=== PATIENT | male | born 1960 | race Caucasian/White ===

== ENCOUNTER 2020-01-08 11:35 | Outpatient (CLI) | payer OTHER, SELFPAY ==
--- NOTE | ~2020-01-08 | XR_ITS ---
EXAMINATION: XR hand LT min 3V EXAM DATE: 01/08/2020 12:20 INDICATION: No known recent injury provided at this time. Pain of the left hand. TECHNIQUE: Left hand frontal, lateral and oblique projections obtained and reviewed. There is no segundo or study for comparison. FINDINGS: Left metacarpal bones are unremarkable. The joint spaces are uniform. There is mild 1st c arpometacarpal primary osteoarthritis. There are no bony erosions identified. There are no acute fra ctures or dislocations identified. There is no subcutaneous gas. The soft tissue is unremarkable. There are no radiopaque foreign bodies. IMPRESSION: Mild left 1st carpometacarpal joint osteoarthritis. Reviewed, dictated and finalized at location B.
--- NOTE | ~2020-01-08 | XR_ITS ---
EXAMINATION: XR knee RT min 4V EXAM DATE: 01/08/2020 12:20 INDICATION: No known recent injury provided at this time. Pain of the right knee. TECHNIQUE: Right knee lateral, frontal AP, frontal PA tunnel, sunrise projections. There is no prior study for comparison. FINDINGS: No evidence osteochondral defect or joint body in the right knee joint. Small femoral di aphyseal sclerotic focus, appearance is consistent with benign enchondroma. Small amount of knee join t fluid. Joint spaces are maintained, no bony productive changes. IMPRESSION: 1. Small right knee joint effusion. 2. Incidental distal femoral diaphyseal enchondroma. Reviewed, dictated and finalized at location B.
--- NOTE | ~2020-01-08 | XR_ITS ---
EXAMINATION: XR hand RT min 3V EXAM DATE: 01/08/2020 12:20 INDICATION: No known recent injury provided at this time. Pain of the hands bilaterally. TECHNIQUE: Right hand frontal, lateral and oblique projections obtained and reviewed. There is no pr ior study for comparison. FINDINGS: Right metacarpal bones are unremarkable. There are no bony erosions identified. The joint spaces are uniform. There are no acute fractures or dislocations identified. There is no subcutaneo us gas. The soft tissue is unremarkable. There are no radiopaque foreign bodies. IMPRESSION: 1. Unremarkable right hand exam. Reviewed, dictated and finalized at location B.
--- NOTE | ~2020-01-08 | XR_ITS ---
EXAMINATION: XR knee LT min 4V EXAM DATE: 01/08/2020 12:20 INDICATION: No known recent injury provided at this time. Pain of the left knee. TECHNIQUE: Left knee lateral, frontal AP, frontal PA tunnel, sunrise projections. There is no prior study for comparison. FINDINGS: No evidence osteochondral defect or joint body in the left knee joint. Trace left knee j oint fluid. Joint spaces are maintained. There are no acute fractures or dislocations identified. Th ere is no subcutaneous gas. The soft tissue is unremarkable. There are no radiopaque foreign regina s. IMPRESSION: 1. Unremarkable left knee exam. Reviewed, dictated and finalized at location B.
== END 2020-01-08 11:36 | disposition home or self-care (01) ==
DX: M79.641 Pain in right hand (principal); M79.642 Pain in left hand; M25.461 Effusion, right knee; D16.21 Benign neoplasm of long bones of right lower limb; M19.042 Primary osteoarthritis, left hand
CPT/HCPCS: 73130; 73564

== ENCOUNTER 2020-09-29 08:01 | Emergency (ER) | payer OTHER, SELFPAY ==
[2020-09-29 08:08] VITALS: BP 137/72; PULSE 81; RESP 16; TEMP 36.6; O2SAT 100
--- NOTE | 2020-09-29 08:18 | ED.LOWEXIN ---
HPI - Extremity Injury (Lower) General Chief Complaint: Extremity Injury, Lower Stated Complaint: L FOOT PAIN Time Seen by Provider: 09/29/20 08:10 Source: patient and RN notes reviewed History of Present Illness HPI Narrative: Patient is a 60-year-old male who presents the urgent care with complaints of redness and swelling above the fourth and fifth digits of the left foot. Patient states it started on Sunday and seems to have gotten worse overnight. Patient states that it is very painful to walk. States that he did walk approximately 6 miles just a couple days ago and assumed he had a gout flare . Patient states that he has been taking his colchicine without any improvement. States that the fourth digit is now turning purple . Patient denies of fever, chills, nausea, vomiting. Denies of any history of cellulitis. No other acute complaints. No acute distress noted. Patient aware of the plan of care. Some parts of this dictation were generated by voice recognition software and may contain typographical and/or grammatical inaccuracies. Related Data Home Medications Medication Instructions Recorded Confirmed allopurinol 09/29/20 colchicine [Mitigare] mg 09/29/20 Allergies Allergy/AdvReac Type Severity Reaction Status Date / Time No Known Allergies Allergy Unverified 05/24/17 19:22 Review of Systems Review of Systems: Narrative: CONSTITUTIONAL: Denies fever, chills, or sweats. EYES: Denies visual changes, redness, or discharge. ENT: Denies rhinorrhea, congestion, sore throat, or otalgia. CARDIOVASCULAR: Denies chest pain, palpitations, or edema. RESPIRATORY: Denies cough or dyspnea. GASTROINTESTINAL: Denies abdominal pain, nausea, vomiting, or diarrhea. GENITOURINARY: Denies dysuria or hematuria. SKIN: Denies rash or itching. MUSCULOSKELETAL: Reports of redness and swelling around the fourth and fifth digits NEUROLOGIC: Denies headache, numbness, or weakness. All other systems reviewed are negative, except as documented in HPI. PMFSH Comments At the time of my signature, I reviewed and agree with the nursing past medical, surgical, social, and family history. There is no relevant family history pertinent to the patient complaint. Exam Narrative: Exam Narrative: GENERAL: This is a well-nourished, well-developed patient, in no apparent distress. HEAD: normocephalic, atraumatic. EYES: PERRL. Sclera clear/white. Vision is grossly intact. EARS: External ears normal NOSE: External nose normal with no obvious nasal discharge, nares without redness, no rhinorrhea. THROAT: Mucous membranes moist NECK: Neck supple SKIN: See extremities. Open 0.25 cm blister between the fourth and fifth digits of the left foot NEURO: awake, alert, and oriented to person, place and time. There were no obvious focal neurologic abnormalities. EXTREMITIES: 1+ pitting edema to the left foot with 5 cm x 6 cm area of erythema/ecchymosis above the fourth and fifth digits with approximately 1 cm linear streaking to the left foot. Range of motion to left lower extremity within normal limits. Positive strong left pedal pulse with capillary refill less than 2 seconds. Course Vital Signs Vital signs: Vital Signs Temperature 97.9 F 09/29/20 08:08 Pulse Rate 81 09/29/20 08:08 Respiratory Rate 16 09/29/20 08:08 Blood Pressure 137/72 09/29/20 08:08 Pulse Oximetry 100 09/29/20 08:08 Temperature 97.9 F 09/29/20 08:08 Pulse Rate 81 09/29/20 08:08 Respiratory Rate 16 09/29/20 08:08 Blood Pressure 137/72 09/29/20 08:08 Pulse Oximetry 100 09/29/20 08:08 Reviewed MDM - Extremity Injury (Lower) MDM Narrative Medical decision making narrative: Advised the patient to complete oral antibiotic regimen as prescribed. Be sure to keep the wound between the fourth and fifth digit very clean and free of debris. Keep the socks and shoes off as much as possible to allow for healing. May use a 2 x 2/4 x 4 piece of gauze debi
== END 2020-09-29 08:34 | disposition home or self-care (01) ==
PROVIDERS: Emergency Provider Nurse Practitioner Family
DX: L03.032 Cellulitis of left toe (principal); M10.9 Gout, unspecified
CPT/HCPCS: 99213; G0463

== ENCOUNTER 2021-05-05 10:12 | Emergency (ER) | payer OTHER, SELFPAY ==
[2021-05-05 10:19] VITALS: BP 147/73; PULSE 72; RESP 12; TEMP 36.6; O2SAT 100
--- NOTE | 2021-05-05 10:26 | ED.SKABFB ---
HPI - Skin/Abscess/Foreign Bdy General Chief complaint: Skin/Abscess/Foreign Body Stated complaint: lt foot pain Time Seen by Provider: 05/05/21 10:27 Source: patient, RN notes reviewed and old records reviewed Mode of arrival: ambulatory Limitations: no limitations History of Present Illness HPI narrative: 61-year-old male presents to the [facility] with complaints of discomfort, redness between toes 4 and 5 left side. Redness between toes and to the plantar aspect. Peeling skin some induration noted. Had the same issue with cellulitic changes and streaking last September. Has a history of gout, denies any other past medical or surgical history Using foot fungus cream Related Data Home Medications Medication Instructions Recorded Confirmed allopurinol 09/29/20 Allergies Allergy/AdvReac Type Severity Reaction Status Date / Time No Known Allergies Allergy Unverified 05/24/17 19:22 Review of Systems Review of Systems: All systems reviewed & are unremarkable except as noted in HPI and below Constitutional: Constitutional: Reports no additional constitutional complaints Eyes: Eyes: Reports no additional eye complaints ENT: Reports system reviewed and no additional complaints, except as documented Cardiovascular: Cardiovascular: Reports no additional cardiovascular complaints Respiratory: Respiratory: Reports no additional respiratory complaints Musculoskeletal: Musculoskeletal: Reports no additional musculoskeletal complaints Integumentary/Breasts: Skin/Breast: Reports as per HPI and Reports erythema (Between toes 4 and 5 left foot, plantar aspect) Neurologic: Reports system reviewed and no additional complaints, except as documented Psychiatric: Psychiatric: Reports no additional psychiatric complaints Allergic/Immunologic: Allergic/Immunologic: Reports no additional allergic/immunologic complaints PMFSH Past Medical History Medical History (Updated 05/05/21 @ 15:23 by Stephanie Bella) Gout Surgical History Surgical History (Updated 05/05/21 @ 15:24 by Stephanie Bella) No significant past surgical history Social History Social History (Updated 05/05/21 @ 15:24 by Stephanie Bella) Gender identity (if verbalized by the patient): Male Comments At the time of my signature, I reviewed and agree with the nursing past medical, surgical, social, and family history. There is no relevant family history pertinent to the patient complaint. Exam Const: General: healthy appearing, no acute distress and alert Nutritional Appearance: well nourished Orientation/consciousness: patient oriented x3 Limitations: no limitations HENMT: Head: normal to inspection Eyes: Pupils: Equal, round and reactive pupils present Neck: Neck: normal visual inspection, no lymphadenopathy and no meningeal signs Chest: Chest palpation & inspection: normal inspection of the chest Resp: Effort & Inspection: normal respiratory effort Cardio: Rate: regular rate Skin: Other: Redness and peeling of skin between toes 4 and 5 left foot with redness extending to the ball, plantar aspect in the same area. No streaking. Neuro: General: patient oriented x3, moves all extremities, no meningeal signs and no focal motor deficits Speech: normal speech Gait exam (Neuro): Normal gait present Extrem: General: normal to inspection Psych: Appearance: grossly normal and well kempt Mental Status: mental status grossly normal Affect: normal affect Attitude: cooperative Thought content: Yes Normal thought content present Course Course Emergency Course: Discharge instructions reviewed with patient, as well as provided in writing per nursing staff. The instructions also include specific and strict return/GO TO THE ER as well as f/u information. All questions have been answered, and the patient deny any further questions with discharge and discharge plan. Vital Signs Vital signs: Vital Signs Temperature 97.8 F 05/05/21 10:19 Pu
== END 2021-05-05 10:41 | disposition home or self-care (01) ==
PROVIDERS: Emergency Provider Nurse Practitioner
DX: B35.3 Tinea pedis (principal); L03.116 Cellulitis of left lower limb; M10.9 Gout, unspecified
CPT/HCPCS: 99213; G0463

== ENCOUNTER 2021-08-21 12:16 | Observation (INO) | payer OTHER, SELFPAY ==
[2021-08-21] VITALS (11 sets, daily range): BP systolic 129–154; BP diastolic 72–86; PULSE 74–98; RESP 16–18; TEMP 36.2–37; O2SAT 100; BMI 25.0
--- NOTE | ~2021-08-21 | XR_ITS ---
EXAMINATION: XR foot RT min 3V EXAM DATE: 08/21/2021 15:20 INDICATION: Right Foot Pain, Red/ Swelling To 5th Metatarsal, Blister . TECHNIQUE: Right foot dorsoplantar, lateral and oblique projections obtained and reviewed. There is no prior study for comparison. FINDINGS: There is mild right 1st metatarsophalangeal joint primary osteoarthritis. There are no acut e fractures or dislocations identified. There is no subcutaneous gas. The soft tissue is unremarkab le. There are no radiopaque foreign bodies. IMPRESSION: Mild right 1st MTP osteoarthritis. Reviewed, dictated and finalized at location G. 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
--- NOTE | 2021-08-21 14:32 | PC.NURSE ---
patient states he went to urgent care on sunday, was given an oral abx for dx of cellulitis. states he has been taking meds as prescribed. woke up with morning and noted a blister on 5th digit. denies pain at this time. symptoms started on sunday
--- NOTE | 2021-08-21 14:54 | ED.GENADULT ---
HPI - General Adult General Chief complaint: Skin/Abscess/Foreign Body Stated complaint: R FOOT CELLULITIS Time Seen by Provider: 08/21/21 14:20 Source: patient and RN notes reviewed History of Present Illness HPI narrative: Patient is a 61 y/o male complaining of right foot pain starting about 4 days ago. He describes his pain as gout pain. He rates his pain as 10/10. Pain is worsen at night. He has some redness. He has no fever, chill. He was seen at urgent care 2 days ago and started on Keflex. However, his symptoms have not improved. Related Data Home Medications Medication Instructions Recorded Confirmed allopurinol 100 mg PO DAILY 09/29/20 08/21/21 Allergies Allergy/AdvReac Type Severity Reaction Status Date / Time No Known Allergies Allergy Unverified 08/21/21 14:34 Review of Systems Constitutional: Constitutional: Denies chills, Denies fever(s), Denies headache(s) and Denies weakness Eyes: Eyes: Denies blurry vision ENT: Denies headache(s) and Denies neck pain Cardiovascular: Cardiovascular: Denies chest pain and Denies dyspnea Respiratory: Respiratory: Denies cough and Denies dyspnea Gastrointestinal: Gastrointestinal: Denies abdominal pain, Denies diarrhea, Denies nausea and Denies vomiting Genitourinary: Genitourinary: Denies hematuria and Denies dysuria Musculoskeletal: Musculoskeletal: Reports as per HPI, Denies back pain, Denies neck pain and Reports other (right foot pain) Integumentary/Breasts: Skin/Breast: Reports erythema (right foot) Neurologic: Denies headache(s) and Denies weakness [facility] Past Medical History Medical History (Updated 08/22/21 @ 17:34 by Angie Cruz MD) Gout Tetralogy of Fallot Surgical History Surgical History (Updated 08/21/21 @ 23:02 by Sherri Irene PA-C) History of open heart surgery Noa-Taussig shunt and subsequent Tetralogy of Fallot repair. History of spinal surgery Family History Family History (Updated 08/21/21 @ 23:02 by Sherri Irene PA-C) Other No pertinent family history Social History Social History (Updated 08/21/21 @ 23:03 by Sherri Irene PA-C) Social History: Surrogate decision maker: Cindy Mendoza, . Code status: Full code. 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 Exam Const: General: no acute distress and well developed Orientation/consciousness: oriented to person, oriented to place, oriented to time and patient oriented x3 HENMT: Head: normocephalic Ears: external ears normal General nose exam: Normal external nose present Eyes: General: appearance normal, both eyes and all related structures Conjunctivae: conjunctivae normal Neck: Neck: normal visual inspection and full ROM Chest: Chest palpation & inspection: normal inspection of the chest and no tenderness Resp: Effort & Inspection: normal respiratory effort Auscultation: clear to auscultation bilaterally Cardio: Rate: regular rate Rhythm: regular rhythm GI: GI Palp: No abdominal tenderness and Yes Soft to palpation Skin: General skin exam: normal color, turgor normal and erythema (right foot pain) Neuro: General: oriented to person, oriented to place, oriented to time and patient oriented x3 Cognition (Neuro): normal cognition Extrem: General: normal to inspection, full ROM and no pedal edema Psych: Appearance: grossly normal Mental Status: mental status grossly normal Affect: normal affect Course Consultations Consultation #1: Discussed with JOSE Polanco, who agrees to admit. Date: 08/21/21 Time: 15:57 Vital Signs Vital signs: Vital Signs Pulse Rate 98 08/21/21 12:19 Respiratory Rate 18 0
[2021-08-21 15:09] LABS: Basophils Percent Auto 0.5 % (0.2-1.2); Eosinophils Absolute Auto 0.1 K/mm3 (0-0.3); Eosinophils Percent Auto 2.5 % (0-4.4); Hematocrit 38.6 % (42.0-52.0); Hemoglobin 13.3 g/dL (14.0-18.0); Lymphocytes Absolute Auto 1.38 K/mm3 (0.9-3.2); Lymphocytes Percent Auto 31.1 % (18.3-44.2); Mean Corpuscular HGB Conc 34.5 g/dl (32-36); Mean Corpuscular Hemoglobin 33.3 pg (26-34); Mean Corpuscular Volume 96.5 fl (80-100); Mean Platelet Volume 9.6 fl (7.4-10.4); Monocytes Absolute Auto 0.4 K/mm3 (0.1-0.6); Monocytes Percent Auto 8.8 % (2.6-8.5); Neutrophils Absolute Auto 2.5 K/mm3 (1.3-6.7); Neutrophils Percent Auto 57.1 % (45.5-73.1); Platelet Count Result 154 k/mm3 (150-375); White Blood Count 4.4 K/mm3 (4.5-10.0)
[2021-08-21 15:31] LABS: Anion Gap 8 mmol/L (8-16); Blood Urea Nitrogen 15 mg/dL (9-20); Calcium 9.3 mg/dL (8.4-10.2); Carbon Dioxide 23 mmol/L (22-30); Chloride 104 mmol/L (98-107); Estimated CRCL calculation 82 ml/min; Estimated Glomerular Filt Rate > 60; Glucose 103 mg/dL (65-110); Potassium 3.8 mmol/L (3.4-5.0); Sodium 135 mmol/L (137-145); Uric Acid 5.9 mg/dL (3.5-8.5)
[2021-08-21 16:30] LABS: CRP 1.3 mg/dL (<1.0)
--- NOTE | 2021-08-21 17:00 | PM.IMHP ---
H&P: HPI History of Present Illness Date/Time: 08/21/21 17:00 <Sherri Irene PA-C - Last Filed: 08/21/21 23:10> Chief Complaint: Right foot pain and redness. <Sherri Irene PA-C - Last Filed: 08/21/21 23:10> Narrative: This is a very pleasant 61-year-old male with history of gout and cellulitis who presented to the emergency department for evaluation of right foot pain and redness. Approximately 4 days ago he developed pain similar to that he has experienced with gout on the right lateral forefoot near the 4th and 5th metatarsophalangeal joints. He started taking colchicine however that has not helped and he goes on to say that the pain has not been constant, which is different than that he would typically experience with gout flares. He then became worried that perhaps he was once again developing cellulitis and he was seen at a local urgent care on Sunday. Indeed he was diagnosed with cellulitis and was given a prescription for cephalexin. Despite compliance with the antibiotic, the erythema has now started to streak up the forefoot and he has noticed an elevated area that looks like a blister. He is an avid walker, walks for exercise, and he has gotten new shoes relatively recently however he has no pain or areas of friction with though shoes. He is certain that the blister-like area noted on today's exam is not due to this use. He has not had any bites or cuts in the area though he goes on to say that he has dry skin which will occasionally crack. He denies fever, chills, sweats, nausea, and vomiting. No history of MRSA. <Sherri Irene PA-C - Last Filed: 08/21/21 23:10> Review of Systems Review of Systems: Twelve systems were reviewed and are negative except for as per HPI. <Sherri Irene PA-C - Last Filed: 08/21/21 23:10> [facility] Past Medical History Medical History: Medical History (Updated 08/22/21 @ 17:34 by Angie Cruz MD) Gout Tetralogy of Fallot <Sherri Irene PA-C - Last Filed: 08/21/21 23:10> Surgical History Surgical History: Surgical History (Updated 08/21/21 @ 23:02 by Sherri Irene PA-C) History of open heart surgery Noa-Taussig shunt and subsequent Tetralogy of Fallot repair. History of spinal surgery <Sherri Irene PA-C - Last Filed: 08/21/21 23:10> Family History Family History: Family History (Updated 08/21/21 @ 23:02 by Sherri Irene PA-C) Other No pertinent family history <Sherri Irene PA-C - Last Filed: 08/21/21 23:10> Social History Social History: Social History (Updated 08/21/21 @ 23:03 by Sherri Irene PA-C) Social History: Surrogate decision maker: Cindy Mendoza, . Code status: Full code. 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 <Sherri Irene PA-C - Last Filed: 08/21/21 23:10> Meds Home Medications and Allergies Home medications: Home Medications Medication Instructions Recorded Confirmed Type allopurinol 100 mg PO DAILY 09/29/20 08/21/21 History <Sherri Irene PA-C - Last Filed: 08/21/21 23:10> Allergies/Adverse reactions: Allergies Allergy/AdvReac Type Severity Reaction Status Date / Time No Known Allergies Allergy Unverified 08/21/21 14:34 <Sherri Irene PA-C - Last Filed: 08/21/21 23:10> Vital Signs Vital Signs - 24 hr 08/21/21 12:19 08/21/21 17:25 08/21/21 17:26 Temperature Pulse Rate 98 Respiratory Rate 18 Blood Pressure 137/77 143/72 H Pulse Oximetry 100 100 100 08/21/21 17:31 08/21/21 17:32 08/21/21 17:46 Temperature Pulse Rate Respiratory Rate Blood Pressure 149/72
[2021-08-21] MEDS: LIDOCAINE HCL 1% LOCAL INJ 20 ML VIAL (17:04)
--- NOTE | 2021-08-21 18:26 | ADMGEN ---
This patient, Ramon Mendoza, was admitted to Medical Room 341-01. Patient/family oriented to hospital policies and general routines including ID bracelet, bed and alarms, visiting hours, pain management, procedures, bathroom and other care routines, personal items, smoking policy, room service/diet, and visiting hours. Information on how to activate the Rapid Response Team has been discussed. Patient/Family are encouraged to report perceived risks to care and to ask questions if they do not understand what they are told or what they should do.
[2021-08-22 06:00] VITALS: BP 105/57; PULSE 65; RESP 16; TEMP 37.1; O2SAT 100
[2021-08-22 06:37] LABS: Estimated CRCL calculation 74 ml/min; Estimated Glomerular Filt Rate > 60
[2021-08-22] MEDS: allopurinoL 100 MG TABLET PO (08:22)
--- NOTE | 2021-08-22 08:34 | PM.IMPN ---
Progress Note: A&P Assessment and Plan (1) Cellulitis of right foot: Code(s): L03.115 - Cellulitis of right lower limb Status: Acute Assessment and Plan: Purulent cellulitis S/p incision and drainage Wound culture has been obtained and is pending Continue with cefazolin and vancomycin, pending culture (2) Gout: Code(s): M10.9 - Gout, unspecified Status: Acute Assessment and Plan: No acute issues Uric acid level within normal limits Continue allopurinol Time Spent With Patient Time: Code status: FULL DVT Ppx: Lovenox Subjective Date/time seen: 08/22/21 08:34 Interval history: Pt seen and evaluated; labs, vs, diagnostic results reviewed; pain controlled; overall pt feels better than yesterday; swelling improved Review of Systems Review of Systems: All systems reviewed & are unremarkable except as noted in HPI and below Exam Narrative: General: NAD HEENT: EOMI. Sclerae anicteric. Oral mucosa moist. Oropharynx clear. Neck: Supple. Respiratory: Lungs are clear to auscultation bilaterally. Cardiovascular: Regular rate and rhythm with S1-S2. Gastrointestinal: Abdomen is soft, nontender, and nondistended with positive bowel sounds. Skin: Warm and dry. There is mild edema and erythema on the dorsum of the right lateral foot near the 4th and 5th metatarsophalangeal joints. There is a small raised area of fluctuance near the 4th and 5th interdigital webspace There is a small Extremities: No cyanosis, clubbing, or significant edema. Radial and pedal pulses intact. Neurological: Alert. No gross focal deficits. Psychiatric: Pleasant and cooperative with normal mood and affect. Judgment and insight intact. Objective Data Vital Signs Vital Signs: Vital Signs - 24 hr 08/21/21 12:19 08/21/21 17:25 08/21/21 17:26 Temperature Pulse Rate 98 Respiratory Rate 18 Blood Pressure 137/77 143/72 H Pulse Oximetry 100 100 100 08/21/21 17:31 08/21/21 17:32 08/21/21 17:46 Temperature Pulse Rate Respiratory Rate Blood Pressure 149/72 H 147/86 H Pulse Oximetry 100 100 100 08/21/21 17:47 08/21/21 18:00 08/21/21 18:01 Temperature Pulse Rate Respiratory Rate Blood Pressure 145/86 H Pulse Oximetry 100 100 100 08/21/21 18:27 08/21/21 22:00 08/22/21 06:00 Temperature 36.2 C L 37.0 C 37.1 C Pulse Rate 74 75 65 Respiratory Rate 16 16 16 Blood Pressure 154/75 H 129/74 105/57 L Pulse Oximetry 100 100 100 Intake/Output Intake/Output: Intake & Output 08/19/21 08/20/21 08/21/21 08/22/21 23:59 23:59 23:59 23:59 Intake Total 250 650 Balance 250 650 Meds/Results Medications: Active Medications Generic Name Dose Route Start Last Admin Trade Name Freq PRN Reason Stop Dose Admin Acetaminophen 650 mg 08/21/21 23:10 Acetaminophen 325 Mg Tablet PO Q6H PRN Mild Pain (1-3) or Fever Allopurinol 100 mg 08/22/21 08:00 08/22/21 08:22 Allopurinol 100 Mg Tablet PO 100 mg DAILY@0800 MARK Administration Cefazolin Sodium 1 gm in 50 mls @ 100 mls/hr 08/22/21 06:00 08/22/21 06:05 Ancef 1 Gm/D5w 50 Ml Pm IVPB Infused Q8H MARK Infusion Vancomycin HCl 1,250 mg in 250 mls @ 200 mls/hr 08/22/21 01:00 08/22/21 02:55 Vancomycin 1,250 Mg/D5w 250 Ml IVPB Infused Q12H MARK Infusion Radiology Results: ITS Impressions Foot X-Ray 08/21/21 15:25 IMPRESSION: Mild right 1st MTP osteoarthritis. Labs Labs: Laboratory Results - last 24 hr 08/21/21 08/21/21 08/21/21 15:02 15:02 15:02 WBC 4.4 L RBC 4.00 L Hgb 13.3 L Hct 38.6 L MCV 96.5 MCH 33.3 MCHC 34.5 RDW 12.0 Plt Count 154 MPV 9.6 Immature Gran % (Auto) 0.0 Neut % (Auto) 57.1 Lymph % (Auto) 31.1 R[place]y % (Auto) 8.8 H Eos % (Auto) 2.5 Baso % (Auto) 0.5 Lymph # (Auto) 1.38 [place] # (Auto) 0.4 Eos # (Auto) 0.1 Baso # (Auto) 0.0 Abs Immat Gran (auto) 0.00 Absolut
[2021-08-22 09:24] VITALS: O2SAT 97
[2021-08-22] MEDS: ENOXAPARIN 40 MG/0.4 ML SYRINGE SUB-Q (12:23)
[2021-08-22 14:07] VITALS: BP 121/59; PULSE 71; RESP 20; TEMP 36.2; O2SAT 100
[2021-08-22 21:31] VITALS: BP 117/63; PULSE 69; RESP 16; TEMP 35.8; O2SAT 100
[2021-08-23 05:01] VITALS: BP 117/64; PULSE 71; RESP 18; TEMP 36.8; O2SAT 100
[2021-08-23 07:29] LABS: Hematocrit 38.4 % (42.0-52.0); Hemoglobin 13.2 g/dL (14.0-18.0); Mean Corpuscular HGB Conc 34.4 g/dl (32-36); Mean Corpuscular Hemoglobin 32.8 pg (26-34); Mean Corpuscular Volume 95.5 fl (80-100); Mean Platelet Volume 9.3 fl (7.4-10.4); Platelet Count Result 161 k/mm3 (150-375); Red Blood Count 4.02 M/mm3 (4.6-6.20); Red Cell Distribution Width 11.9 % (11.5-14.5); White Blood Count 3.5 K/mm3 (4.5-10.0)
[2021-08-23 07:35] LABS: Anion Gap 6 mmol/L (8-16); Blood Urea Nitrogen 15 mg/dL (9-20); Calcium 9.3 mg/dL (8.4-10.2); Carbon Dioxide 25 mmol/L (22-30); Chloride 102 mmol/L (98-107); Estimated CRCL calculation 74 ml/min; Estimated Glomerular Filt Rate > 60; Glucose 106 mg/dL (65-110); Potassium 4.7 mmol/L (3.4-5.0); Sodium 133 mmol/L (137-145)
[2021-08-23] MEDS: allopurinoL 100 MG TABLET PO (08:02)
[2021-08-23] MEDS: ENOXAPARIN 40 MG/0.4 ML SYRINGE SUB-Q (08:20)
[2021-08-23 08:31] VITALS: BP 131/65; PULSE 68; RESP 14; TEMP 36; O2SAT 100
[2021-08-23 11:53] VITALS: BP 129/77; PULSE 71; RESP 14; TEMP 36.1; O2SAT 100
--- NOTE | 2021-08-23 13:58 | PM.DS ---
DS: Admitting Diagnosis Discharge Date 08/23/2021 Admitting Diagnosis Right foot pain and redness. DS: Discharge Diagnosis Discharge Diagnosis (1) Cellulitis of right foot: Code(s): L03.115 - Cellulitis of right lower limb Status: Acute Assessment and Plan: Purulent cellulitis S/p incision and drainage Wound culture has been obtained and is pending Continue with cefazolin and vancomycin, pending culture (2) Gout: Code(s): M10.9 - Gout, unspecified Status: Acute Assessment and Plan: No acute issues Uric acid level within normal limits Continue allopurinol DS: Summary Hospital Course Reason for hospitalization: Chief Complaint: Right foot pain and redness. <Sherri Irene PA-C - Last Filed: 08/21/21 23:10> Narrative: This is a very pleasant 61-year-old male with history of gout and cellulitis who presented to the emergency department for evaluation of right foot pain and redness. Approximately 4 days ago he developed pain similar to that he has experienced with gout on the right lateral forefoot near the 4th and 5th metatarsophalangeal joints. He started taking colchicine however that has not helped and he goes on to say that the pain has not been constant, which is different than that he would typically experience with gout flares. He then became worried that perhaps he was once again developing cellulitis and he was seen at a local urgent care on Sunday. Indeed he was diagnosed with cellulitis and was given a prescription for cephalexin. Despite compliance with the antibiotic, the erythema has now started to streak up the forefoot and he has noticed an elevated area that looks like a blister. He is an avid walker, walks for exercise, and he has gotten new shoes relatively recently however he has no pain or areas of friction with though shoes. He is certain that the blister-like area noted on today's exam is not due to this use. He has not had any bites or cuts in the area though he goes on to say that he has dry skin which will occasionally crack. He denies fever, chills, sweats, nausea, and vomiting. No history of MRSA. Hospital Course: Purulent cellulitis S/p incision and drainage Wound culture has been obtained and is pending Continue with cefazolin and vancomycin, pending culture Wound culture no growth so far patient is clinically stable will discharge the patient today. Status at Discharge Functional status at discharge: independent ambulation Overall status at discharge: patient is back to baseline Time Spent with Patient Time attestation: Total time spent providing and/or coordinating discharge services: Patient was seen and examined at the time of the discharge Condition at discharge is stable Code status: Full code. Time spent preparing discharge summary, discharge medications, discussing discharge planning with outpatient case manager and patient is 35 minutes. Time spent: Greater than 30 minutes Exam Narrative: Patient is comfortable, NAD HEENT: eyes are clear and none icteric LUNGS:Normal respiratory effort ABD: nondistended Lower extremities: no edema SKIN: nonjaundiced Neuro: grossly intact. DS: Data Data Completed and Pending Labs on day of discharge: Labs from last 24 hours 08/23/21 08/23/21 08/23/21 11:55 07:19 07:19 WBC 3.5 L RBC 4.02 L Hgb 13.2 L Hct 38.4 L MCV 95.5 MCH 32.8 MCHC 34.4 RDW 11.9 Plt Count 161 MPV 9.3 Sodium 133 L Potassium 4.7 Chloride 102 Carbon Dioxide 25 Anion Gap 6 L BUN 15 Creatinine 0.90 Estim Creat Clear Calc 74 Estimated GFR > 60 Glucose 106 Calcium 9.3 Vancomycin Trough 12.0 Preliminary micro results at discharge 08/21/21 17:03 Wound Culture - Preliminary Foot Right Discharge Plan Discharge Attending physician on discharge: Osmany Gary Consulting providers: ; Tian Luu ; Sherri Irene ; Carlos Steel
--- NOTE | 2021-08-23 14:32 | PC.NURSE ---
On 08/23/21, the student, Cheryl Orellana, provided care and completed [facility] documentation on this patient. I have reviewed the student's documentation and agree with the findings.
== END 2021-08-23 15:15 | disposition home or self-care (01) ==
LOC: ANHED 16:52 → ANH3MED 17:21
PROVIDERS: Nurse Practitioner Adult Health; Physician Assistant; Admitting Provider Family Medicine; Emergency Provider Emergency Medicine; Visit Provider Family Medicine
DX: L03.115 Cellulitis of right lower limb (principal); M10.9 Gout, unspecified; Z87.891 Personal history of nicotine dependence
CPT/HCPCS: 10060; 36415; 73630; 80048; 80202; 82565; 84550; 85025; 85027; 86140; 87070; 87081; 87205; 96365; 96366; 96367; 96372; 96376; 99285; A9270; G0378; G0379; J0690; J1650; J3370

== ENCOUNTER 2025-04-06 18:43 | Inpatient (IN) | payer MEDICARE, OTHER, SELFPAY ==
[2025-04-06] VITALS (16 sets, daily range): BP systolic 80–140; BP diastolic 55–77; PULSE 76–98; RESP 13–27; TEMP 36.9; O2SAT 97–100
--- NOTE | ~2025-04-06 | XR_ITS ---
XR bone survey comp/metastic 04/07/2025 19:54 Indication: Metastatic survey. Multiple myeloma. Procedure: 31 images of the skeleton Comparison: No prior studies for comparison. Findings: There are lytic defects in the distal aspect of the right humerus with scalloping of the cortex. There are lytic defects of the proximal aspect of the left radius. There are lytic defects distal aspect of the left humerus with scalloping of the cortex. There are multiple lytic defects of multiple ribs, clavicles and proximal aspect of the humerus bilaterally. There is severe cervical spondylosis. There is carotid atherosclerosis. There are multiple lytic defects of the skull. There are gallstones. There are multiple lytic defects of the femurs. There are lytic defects in the proximal aspect of the fibula bilaterally. There is moderate thoracic and lumbar spondylosis. Impression: 1: Innumerable lytic defects throughout the visualized osseous structures, compatible with widespread multiple myeloma. Reviewed, dictated and finalized at location O. Impression: 1: Innumerable lytic defects throughout the visualized osseous structures, comp atible with widespread multiple myeloma.
--- NOTE | ~2025-04-06 | BM_ITS ---
EXAMINATION: CCL bone marrow asp w bx diag ORDER COMPLETED DATE: 04/09/2025 13:26 INDICATION: Multiple lytic bone lesions suspicious for multiple myeloma TECHNIQUE: A time-out was performed to verify the patient's name, date of , and procedure to be performed. The procedure including the risks and benefits was discussed with the patient. Risks discussed included bleeding, infection, nerve injury and allergic reaction. The patient understood the risks and agreed to proceed. The skin overlying the right posterior iliac spine was prepped and draped in usual sterile fashion. Anesthetic was administered with 1% lidocaine subcutaneously. Moderate conscious sedation was achieved with 50 mcg fentanyl IV. An 11 gauge needle was inserted into the right ilium with fluoroscopic guidance. Bone marrow was aspirated. An 8 gauge needle was then inserted into the right ilium with fluoroscopic guidance. 2 core bone marrow biopsy specimens were obtained. The needle was removed and the entry site was cleaned and dressed. There were no immediate complications. A single fluoroscopic image was recorded. Fluoroscopy exposure time was 0.1 minutes. Total DAP was 69.5 mGycm^2. FINDINGS: Real-time fluoroscopy demonstrates the biopsy needle tip overlying the right posterior iliac spine. IMPRESSION: 1. Successful fluoroscopic guided bone marrow aspiration. 2. Successful fluoroscopic guided bone marrow biopsy. Reviewed, dictated and finalized at location A.
--- NOTE | ~2025-04-06 | XR_ITS ---
XR chest 1V portable 04/06/2025 21:09 Indication: Weakness Procedure: AP portable chest Comparison: No prior studies for comparison. Findings: Cardiomegaly with mild interstitial edema. No pleural effusion or pneumothorax. Diffuse osteopenia. Impression: 1: Cardiomegaly with mild interstitial edema. Reviewed, dictated and finalized at location O. Impression: 1: Cardiomegaly with mild interstitial edema.
--- NOTE | ~2025-04-06 | CT_ITS ---
EXAMINATION: CT brain wo con DATE: 04/06/2025 19:12 INDICATION: Slurred speech for year. TECHNIQUE: Computed tomography (CT) of the abdomen and pelvis was performed without intravenous contrast. The dose-length product was 681.00 mGy-cm. Automated exposure control and iterative reconstruction technique were employed. COMPARISON: None. FINDINGS: Brain parenchymal volume is normal for age. There are scattered mild periventricular and subcortical white matter changes, most likely related to small vessel ischemic disease (microangiopathy). There is intracranial atherosclerosis. No acute infarction, hemorrhage, mass or mass effect. Paranasal sinuses and mastoids are pneumatized. No depressed skull fractures. IMPRESSION: 1. No acute intracranial abnormality. Reviewed, dictated and finalized at location O.
--- NOTE | ~2025-04-06 | MR_ITS ---
EXAMINATION: MR brain/brain stem wo/w con DATE: 04/08/2025 13:06 INDICATION: Episode of slurred speech. Possible malignancy. TECHNIQUE: Magnetic resonance imaging (MRI) of the brain and brainstem was performed without and with 17 mL Multihance intravenous contrast. Sequences included sagittal and axial T1-weighted SE, axial diffusion-weighted FS SE, axial 3D SWAN, axial T2-weighted FLAIR, and axial T2-weighted FSE. Postcontrast axial, sagittal and coronal T1-weighted SE was obtained. Apparent diffusion coefficient (ADC) maps were created. COMPARISON: Head CT and CT angiogram dated 04/06/2025 FINDINGS: There are no areas of restricted diffusion to suggest acute infarction. There are few scattered small foci of susceptibility artifact in the bilateral cerebral hemispheres consistent with sequela of chronic microhemorrhage as can be seen with hypertension. No acute intracranial hemorrhage or abnormal i ntracranial mass lesion. There are scattered areas of nonspecific increased T2- weighted signal intensity in the cerebral white matter, predominantly involving the deep and periventricular white matter which is within normal limits for age and likely sequela of chronic small vessel ischemic disease. There are no intraparenchymal signal abnormalities seen on the other pulse sequences. The ventricles are symmetric and normal in size. There are no abnormal extra-axial fluid collections. Flow voids are seen in the cerebral arteries on the T2- weighted sequences consistent with their expected patency. Left vertebral artery is dominant. There are several small T2 hyperintense and enhancing calvarial lesions which correspond to a decrease on prior CT suspicious for multiple myeloma or metastatic disease. Visualized orbits and soft tissues are unremarkable. There are no areas of abnormal intraparenchymal enhancement on the post contrast images. IMPRESSION: 1. Normal aging brain with mild scattered periventricular predominant calcific white matter T2 hyperintensity consistent with chronic small vessel ischemic disease. No acute intracranial process or abnormally enhancing brain lesions. 2. Multiple small enhancing calvarial lesions correspond to lytic lesions on prior CT and concerning for multiple myeloma or other metastatic disease. Reviewed, dictated and finalized at location A. IMPRESSION: 1. Normal aging brain with mild scattered periventricular predominant calcific white matter T2 hyperintensity consistent with chronic small vessel ischemic di sease. No acute intracranial process or abnormally enhancing brain lesions. 2. Multiple small enhancing calvarial lesions correspond to lytic lesions on pr ior CT and concerning for multiple myeloma or other metastatic disease.
--- NOTE | ~2025-04-06 | CT_ITS ---
EXAMINATION: CTA brain carotid DATE: 04/06/2025 22:26 INDICATION: Confusion. Unsteady gait. TECHNIQUE: Computed tomographic angiography (CTA) of the head was performed with 100 mL Omnipaque-350 intravenous contrast. CTA of the neck was performed with intravenous contrast. Automated exposure control and iterative reconstruction technique were employed. The dose-length product was 1159.01 mGy-cm. Maximum intensity projection and volume rendered 3D-reconstructions were created by the technologist on a separate workstation. COMPARISON: Head CT 04/06/2025 FINDINGS: HEAD CTA: There is no intracranial hemorrhage, acute infarction, or abnormal intracranial mass lesion. There are scattered areas of low attenuation in the cerebral white matter, which is within normal limits for the patient's age. The ventricles are normal in size. The paranasal sinuses are clear. The orbits are normal. The mastoid air cells are normal. Left vertebral artery is dominant. There is no significant stenosis of basilar artery or the posterior cerebral arteries. The posterior communicating arteries are normal. There is no significant stenosis of the intracranial internal carotid arteries or anterior or middle cerebral arteries. Anterior communicating artery is normal. There is no aneurysm. NECK CTA: There are no pathologically enlarged lymph nodes. 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 There is plaque in the proximal internal carotid arteries. There is 13% stenosis of the proximal right internal carotid artery relative to normal distal artery lumen diameter (NASCET criteria). There is 0% stenosis of the proximal left internal carotid artery relative to normal distal artery lumen diameter. There is severe cervical spondylosis. There are widespread lytic lesions of the bones. IMPRESSION: 1. Normal aging brain. 2. No aneurysm or significant intracranial arterial stenosis. 3. 13% stenosis of the proximal right internal carotid artery relative to normal distal artery lumen diameter (NASCET criteria). 4. 0% stenosis of the proximal left internal carotid artery relative to normal distal artery lumen diameter. 5. Widespread lytic lesions of bone, consistent with multiple myeloma versus metastatic disease. Reviewed, dictated and finalized at location E. IMPRESSION: 1. Normal aging brain. 2. No aneurysm or significant intracranial arterial stenosis. 3. 13% stenosis of the proximal right internal carotid artery relative to shayla l distal artery lumen diameter (NASCET criteria). 4. 0% stenosis of the proximal left internal carotid artery relative to normal distal artery lumen diameter. 5. Widespread lytic lesions of bone, consistent with multiple myeloma versus me tastatic disease.
--- NOTE | ~2025-04-06 | MR_ITS ---
EXAMINATION: MR cervical spine wo con DATE: 04/08/2025 13:06 INDICATION: Weakness. Falls. TECHNIQUE: Magnetic resonance imaging (MRI) of the cervical spine was performed without intravenous contrast. COMPARISON: CTA neck 04/06/2025 FINDINGS: There is 2 mm retrolisthesis of C3 on C4. There is mild kyphosis of cervical spine. There is 3 degrees levocurvature of cervical spine. There is widespread heterogeneous signal intensity of the bone marrow. There is severely decreased disc height at C3-C4, moderately decreased disc height at C4-C5, and severely decreased disc height at C5-C6 and C6-C7. The spinal cord signal intensity is normal. The following disc levels are specifically discussed: C2-C3: The disc does not extend beyond the endplate margin. There is moderate right and mild left uncovertebral joint osteoarthritis. There is moderate bilateral facet joint osteoarthritis. There is mild right neural foraminal stenosis. There is no central canal stenosis. C3-C4: The disc is bulging. There is severe bilateral uncovertebral joint osteoarthritis. There is moderate bilateral facet joint osteoarthritis. There is severe right and moderate left neural foraminal stenosis. There is moderate central canal stenosis with ventral and dorsal indentation of the spinal cord. C4-C5: The disc is bulging. There is severe bilateral uncovertebral joint osteoarthritis. There is moderate right and severe left facet joint osteoarthritis. There is severe right and moderate left neural foraminal stenosis. There is moderate central canal stenosis with ventral and dorsal indentation of the spinal cord. C5-C6: The disc is bulging. There is severe bilateral uncovertebral joint osteoarthritis. There is moderate bilateral facet joint osteoarthritis. There is severe bilateral neural foraminal stenosis. There is mild bilateral central canal stenosis. C6-C7: The disc is bulging with superimposed central extrusion. There is severe bilateral uncovertebral joint osteoarthritis. There is mild bilateral facet joint osteoarthritis. There is mild right and moderate left neural foraminal stenosis. There is mild central canal stenosis with ventral indentation of the spinal cord. C7-T1: The disc does not extend beyond the endplate margin. There is mild bilateral uncovertebral joint osteoarthritis. There is mild right and severe left facet joint osteoarthritis. There is mild bilateral neural foraminal stenosis. There is no central canal stenosis. IMPRESSION: 1. Widespread heterogeneous signal intensity in the bone marrow suspicious for multiple myeloma or metastatic disease. 2. Severe cervical spondylosis. Reviewed, dictated and finalized at location E.
--- NOTE | ~2025-04-06 | MR_ITS ---
EXAMINATION: MR thoracic spine wo con DATE: 04/08/2025 13:05 INDICATION: Weakness. Falls. TECHNIQUE: Magnetic resonance imaging (MRI) of the thoracic spine was performed without intravenous contrast. COMPARISON: None FINDINGS: There is 4 degrees dextrocurvature of thoracic spine. There is mild chronic anterior wedging of T12-L3 vertebral bodies. There is developmental anterior and posterior fusion at T4-T5. There is mildly decreased disc height at multiple levels. There is moderately decreased disc height at T12-L1 and L2-L3. There is widespread heterogeneous signal intensity in the bone marrow. There is multilevel facet joint osteoarthritis, severe at many levels. At T7-T8, there is a central extrusion with mild central canal stenosis. At T8-T9, there is a central extrusion with mild central canal stenosis. At T9-T10, there is a central extrusion with mild central canal stenosis and ventral indentation of the spinal cord. The discs are bulging from T10-T11 through L2-L3 with mild central canal stenosis. There is multilevel mild neural foraminal stenosis on either side. On the right, there is moderate neural foraminal stenosis at T10- T11 and T11-T12. On the left, there is moderate neural foraminal stenosis at T2- T3, T10-T11, T11-T12, and T12-L1. The spinal cord signal intensity is normal. The conus medullaris is at L2. IMPRESSION: 1. Widespread heterogeneous bone marrow signal intensity, consistent with multiple myeloma versus metastatic disease. 2. Moderate thoracic spondylosis. Reviewed, dictated and finalized at location E. IMPRESSION: 1. Widespread heterogeneous bone marrow signal intensity, consistent with multi ple myeloma versus metastatic disease. 2. Moderate thoracic spondylosis.
--- NOTE | 2025-04-06 18:59 | PC.NURSE ---
when ambulating from chair to wheelchair patients legs buckled. patient states that he can tell it starts in his lower back where he had back surgery. patient bilateral legs seem to not hold the weight of his body and does take a couple of times trying to get up from sitting position. patient has been playing golf frequently and may have aggravated something but still concerned about slurred speech
--- NOTE | 2025-04-06 20:11 | ECG_ITS ---
Test Date: 2025-04-06 20:16:05 Measurements Intervals [place] Rate: 88 P: 65 [place]: 240 QRS: -80 QRSD: 156 T: 62 QT: 396 QTc: 480 Interpretive Statements SINUS RHYTHM WITH FIRST DEGREE AV BLOCK WITH OCCASIONAL VENTRICULAR PREMATURE COMPLEXES RIGHT BUNDLE BRANCH BLOCK [120+ ms QRS DURATION, UPRIGHT V1, 40+ ms S IN I/aVL/V4/V5/V6] INFERIOR MYOCARDIAL INFARCTION , POSSIBLY ACUTE [40+ ms Q WAVE AND/OR ST/T ABNORMALITY IN II/aVF] CONSIDER PREVIOUS ANTERIOR INFARCTION ABNORMAL ECG No previous ECG available for comparison Electronically Signed On 04-07-2025 12:19:56 CDT by Juan Guevara M.D.
[2025-04-06 20:42] LABS: Alanine Aminotransferase 28 U/L (6-50); Albumin Level 4.4 g/dL (3.5-5.1); Alkaline Phosphatase 51 U/L (38-126); Anion Gap 12 mmol/L (4-12); Aspartate Amino Transferase 30 U/L (17-59); Bilirubin,Total 0.8 mg/dL (0.2-1.3); Blood Urea Nitrogen 17 mg/dL (9-20); Calcium 10.3 mg/dL (8.4-10.2); Carbon Dioxide 20 mmol/L (22-30); Chloride 104 mmol/L (98-107); Estimated CRCL calculation 54 ml/min; Estimated Glomerular Filt Rate > 60; Glucose 103 mg/dL (65-110); Potassium 3.6 mmol/L (3.4-5.0); Sodium 136 mmol/L (137-145); Total Protein 8.0 g/dL (6.3-8.2)
[2025-04-06 20:45] LABS: INR 1.0; Prothrombin Time 13.7 Seconds (11.1-14.7)
[2025-04-06 20:46] LABS: Partial Thromboplastin Time 24.0 Seconds (22.3-36.8)
[2025-04-06 20:53] LABS: Troponin I < 0.012 ng/mL (0.000-0.034)
--- NOTE | 2025-04-06 21:02 | ED_ITS ---
HPI - General Adult General Chief complaint: Back Pain/Injury <Shyam Burns MD - Last Filed: 04/06/25 21:51> Stated complaint: legs gave out today. denies pain <Shyam Burns MD - Last Filed: 04/06/25 21:51> Time Seen by Provider: 04/06/25 20:21 <Shyam Burns MD - Last Filed: 04/06/25 21:51> History of Present Illness HPI narrative: Patient 65-year-old gentleman presents emergency department with chief complaint of increasing weakness. Patient is seeing Neurology and Rachel has had multiple studies done is currently in a study at that facility patient reports today his legs gave out on him and noticed that he has had blank stares slurred speech the family reports this is been progressive over the last several days the family is concerned that he may have had a stroke patient has prior history of a cardiac surgery whenever he was an and reports that he normally has an abnormal looking EKG. The family reports the patient has been more unsteady with his gait and that there been concerned that he has had multiple falls with 4 be done in the last month <Shyam Burns MD - Last Filed: 04/06/25 21:51> Related Data Home medications: Home Medications ?Medication ?Instructions ?Recorded ?Confirmed ?Last Taken ?Type allopurinol 100 mg tablet 100 mg PO DAILY 09/29/2001/04 Unknown History <Shyam Burns MD - Last Filed: 04/06/25 21:51> Allergies/adverse reactions: Allergies Allergy/AdvReac Type Severity Reaction Status Date / Time No Known Allergies Allergy Verified 04/06/25 18:57 <Shyam Burns MD - Last Filed: 04/06/25 21:51> Review of Systems 2 Review of Systems: A 10 system review of systems was completed on the patient and is negative except for what is stated in the HPI. Nursing and ancillary documentation was reviewed. <Shyam Burns MD - Last Filed: 04/06/25 21:51> [facility] Past Medical History Medical History: Medical History Tetralogy of Fallot Gout <Shyam Burns MD - Last Filed: 04/06/25 21:51> Surgical History Surgical History: Surgical History History of open heart surgery Noa-Taussig shunt and subsequent Tetralogy of Fallot repair. History of spinal surgery <Shyam Burns MD - Last Filed: 04/06/25 21:51> Family History Family History: Family History Other No pertinent family history <Shyam Burns MD - Last Filed: 04/06/25 21:51> Social History Social History: Social History Social History: Surrogate decision maker: Cindy Mendoza, . Code status: Full code. 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 HEAD: Normocephalic, atraumatic. EYES: PERRLA and EOMI. ENT: Nares clear, no rhinorrhea or epistaxis. Mucous membranes moist. NECK: Supple. CHEST: Clear to auscultation. No respiratory distress. HEART: Regular rate and rhythm. No murmur heard. Normal peripheral pulses. ABDOMEN: Soft, nontender, nondistended, normal active bowel sounds. EXTREMITIES: Normal range of motion. No edema. SKIN: Warm, dry, no rash. NEURO: No focal deficits. Alert and oriented x3. PSYCH: Normal mood and affect. <Shyam Burns MD - Last Filed: 04/06/25 21:51> Course Reevaluation(s) Reevaluation #1: Pending CTA head/neck; this was unremarkable. Patient's very concerned about his falls and would like him to be admitted here. PRT has a neurologist in [place] and is part of a trial to assess for possible dementia. D/w hospitalist for admission. <Nannette Ware MD - Last Filed: 04/07/25 01:38> Vital Signs Vital signs: Vital Signs Temperature 98.4 F 04/06/25 18:51 Pulse Rate 98 04/06/25 18:51 Respiratory Rate 14 04/06/25 18:51 Blood Pressure 140/55 L 04/06/25 18:51 Pulse Oximetry 100 04/06/25 18:51 Oxygen Delivery Room Air 04/06/25 18:51 Temperature 98.4 F 04/06/25 18:51 Pulse Rate 84 04/06/25 23:05 Respiratory Rate 20 04/06/25 23:05 Blood Pressure 131/57 L 04/06/25 23:05 Pulse Oximetry 100 04/06/25 23:05 Oxygen Delivery Room Air 04/06/25 18:51 <Shyam Burns MD - Last Filed: 04/06/25 21:51> Vital Signs Temperature 98.4 F 04/06/25 18:51 Pulse Rate 98 04/06/25 18:51 Respiratory Rate 14 04/06/25 18:51 Blood Pressure 140/55 L 04/06/25 18:51 Pulse Oximetry 100 04/06/25 18:51 Oxygen Delivery Room Air 04/06/25 18:51 Temperature 98.4 F 04/06/25 18:51 Pulse Rate 84 04/06/25 23:05 Respiratory Rate 20 04/06/25 23:05 Blood Pressure 131/57 L 04/06/25 23:05 Pulse Oximetry 100 04/06/25 23:05 Oxygen Delivery Room Air 04/06/25 18:51 <Nannette Ware MD - Last Filed: 04/07/25 01:38> Medical Decision Making MDM Narrative Medical decision making narrative: Differential diagnosis includes CVA, ACS, infection, Patient reported no syncope the family reported no syncope. They report last known well was sometime several days ago although reports symptoms have been fluctuating Chest x-ray showed cardiomegaly with possible mild interstitial edema. BNP is currently pending EKG showed right bundle-branch block this is compared to a EKG that was obtained on the patient's portal through his phone this is unchanged from previous EKGs. Initial troponin was negative Noncontrast CT head was obtained showed no acute abnormality Patient initially had a normal blood pressure but subsequently has had a blood pressure that has been in the 90s. Patient was given normal saline boluses and CTA head neck was also obtained as there was concern for possible CVA The case was signed out to the night provider <Shyam Burns MD - Last Filed: 04/06/25 21:51> Vital Signs Vital Signs: Vital Signs Temperature 98.4 F 04/06/25 18:51 Pulse Rate 98 04/06/25 18:51 Respiratory Rate 14 04/06/25 18:51 Blood Pressure 140/55 L 04/06/25 18:51 Pulse Oximetry 100 04/06/25 18:51 Oxygen Delivery Room Air 04/06/25 18:51 Temperature 98.4 F 04/06/25 18:51 Pulse Rate 84 04/06/25 23:05 Respiratory Rate 20 04/06/25 23:05 Blood Pressure 131/57 L 04/06/25 23:05 Pulse Oximetry 100 04/06/25 23:05 Oxygen Delivery Room Air 04/06/25 18:51 <Shyam Burns MD - Last Filed: 04/06/25 21:51> Vital Signs Temperature 98.4 F 04/06/25 18:51 Pulse Rate 98 04/06/25 18:51 Respiratory Rate 14 04/06/25 18:51 Blood Pressure 140/55 L 04/06/25 18:51 Pulse Oximetry 100 04/06/25 18:51 Oxygen Delivery Room Air 04/06/25 18:51 Temperature 98.4 F 04/06/25 18:51 Pulse Rate 84 04/06/25 23:05 Respiratory Rate 20 04/06/25 23:05 Blood Pressure 131/57 L 04/06/25 23:05 Pulse Oximetry 100 04/06/25 23:05 Oxygen Delivery Room Air 04/06/25 18:51 <Nannette Ware MD - Last Filed: 04/07/25 01:38> Lab Data Result diagrams: 04/06/25 20:23 04/06/25 20:23 <Shyam Burns MD - Last Filed: 04/06/25 21:51> Labs: Lab Results 04/06/25 04/06/25 04/06/25 Range/Units 20:23 21:26 23:02 WBC 3.5 L (4.5-10.0) K/mm3 RBC 2.40 L (4.6-6.20) M/mm3 Hgb 8.0 L D (14.0-18.0) g/dL Hct 25.3 L (42.0-52.0) % MCV 105.4 H (80-100) fl MCH 33.3 (26-34) pg MCHC 31.6 L (32-36) g/dl RDW 15.2 H (11.5-14.5) % Plt Count 124 L (150-375) k/mm3 MPV 9.1 (7.4-10.4) fl Immature Gran % (Auto) 2.5 H (0-0.5) % Neut % (Auto) 58.1 (45.5-73.1) % Lymph % (Auto) 27.5 (18.3-44.2) % [place] % (Auto) 9.9 H (2.6-8.5) % Eos % (Auto) 1.4 (0-4.4) % Baso % (Auto) 0.6 (0.2-1.2) % Lymph # (Auto) 0.97 (0.9-3.2) K/mm3 [place] # (Auto) 0.4 (0.1-0.6) K/mm3 Eos # (Auto) 0.1 (0-0.3) K/mm3 Baso # (Auto) 0.0 (0.0-0.1) K/mm3 Abs Immat Gran (auto) 0.09 H (0.00-0.031) K/mm3 Absolute Neuts (auto) 2.1 (1.3-6.7) K/mm3 Absolute Nucleated RBC 0.020 H (0.0-0.012) K/mm3 Band Neutrophils % Not Reportable Nucleated RBC % 0.6 H (0.0-0.2) % Platelet Estimate Decreased (Adequate) Hypochromasia 1+ Anisocytosis 1+ Tear Drop Cells Occasional Ovalocytes Occasional Schistocytes None seen PT 13.7 (11.1-14.7) Seconds INR 1.0 APTT 24.0 (22.3-36.8) Seconds Sodium 136 L (137-145) mmol/L Potassium 3.6 (3.4-5.0) mmol/L Chloride 104 (98-107) mmol/L Carbon Dioxide 20 L (22-30) mmol/L Anion Gap 12 (4-12) mmol/L BUN 17 (9-20) mg/dL Creatinine 1.18 (0.7-1.3) mg/dL Estim Creat Clear Calc 54 ml/min Estimated GFR > 60 (59 - ) Glucose 103 (65-110) mg/dL Lactic Acid 2.1 H (0.7-2.0) mmol/L Calcium 10.3 H (8.4-10.2) mg/dL Total Bilirubin 0.8 (0.2-1.3) mg/dL AST 30 (17-59) U/L ALT 28 (6-50) U/L Alkaline Phosphatase 51 (38-126) U/L Troponin I < 0.012 (0.000-0.034) ng/mL NT-Pro-B Natriuret Pep 955 H (19.9-100) pg/mL Total Protein 8.0 (6.3-8.2) g/dL Albumin 4.4 (3.5-5.1) g/dL Urine Color Yellow (Yellow) Urine Appearance Clear (Clear) Urine pH 5.5 (5.0-9.0) Ur Specific [place] 1.010 (1.001-1.035) Urine Protein Negative (Negative) mg/dL Urine Glucose (UA) Negative (Negative) mg/dL Urine Ketones Negative (Negative) mg/dL Ur Blood (Man) Negative (Negative) Urine Nitrate Negative (Negative) Urine Bilirubin Negative (Negative) Urine Urobilinogen 0.2 (<2.0) mg/dL Leukocyte Esterase Rfl Negative (Negative) BRANDY/UL 04/06/25 Range/Units 23:46 WBC (4.5-10.0) K/mm3 RBC (4.6-6.20) M/mm3 Hgb (14.0-18.0) g/dL Hct (42.0-52.0) % MCV (80-100) fl MCH (26-34) pg MCHC (32-36) g/dl RDW (11.5-14.5) % Plt Count (150-375) k/mm3 MPV (7.4-10.4) fl Immature Gran % (Auto) (0-0.5) % Neut % (Auto) (45.5-73.1) % Lymph % (Auto) (18.3-44.2) % [place] % (Auto) (2.6-8.5) % Eos % (Auto) (0-4.4) % Baso % (Auto) (0.2-1.2) % Lymph # (Auto) (0.9-3.2) K/mm3 [place] # (Auto) (0.1-0.6) K/mm3 Eos # (Auto) (0-0.3) K/mm3 Baso # (Auto) (0.0-0.1) K/mm3 Abs Immat Gran (auto) (0.00-0.031) K/mm3 Absolute Neuts (auto) (1.3-6.7) K/mm3 Absolute Nucleated RBC (0.0-0.012) K/mm3 Band Neutrophils % Nucleated RBC % (0.0-0.2) % Platelet Estimate (Adequate) Hypochromasia Anisocytosis Tear Drop Cells Ovalocytes Schistocytes PT (11.1-14.7) Seconds INR APTT (22.3-36.8) Seconds Sodium (137-145) mmol/L Potassium (3.4-5.0) mmol/L Chloride (98-107) mmol/L Carbon Dioxide (22-30) mmol/L Anion Gap (4-12) mmol/L BUN (9-20) mg/dL Creatinine (0.7-1.3) mg/dL Estim Creat Clear Calc ml/min Estimated GFR (59 - ) Glucose (65-110) mg/dL Lactic Acid 1.6 (0.7-2.0) mmol/L Calcium (8.4-10.2) mg/dL Total Bilirubin (0.2-1.3) mg/dL AST (17-59) U/L ALT (6-50) U/L Alkaline Phosphatase (38-126) U/L Troponin I (0.000-0.034) ng/mL NT-Pro-B Natriuret Pep (19.9-100) pg/mL Total Protein (6.3-8.2) g/dL Albumin (3.5-5.1) g/dL Urine Color (Yellow) Urine Appearance (Clear) Urine pH (5.0-9.0) Ur Specific [place] (1.001-1.035) Urine Protein (Negative) mg/dL Urine Glucose (UA) (Negative) mg/dL Urine Ketones (Negative) mg/dL Ur Blood (Man) (Negative) Urine Nitrate (Negative) Urine Bilirubin (Negative) Urine Urobilinogen (<2.0) mg/dL Leukocyte Esterase Rfl (Negative) BRANDY/UL <Shyam Burns MD - Last Filed: 04/06/25 21:51> Lab Results 04/06/25 04/06/25 04/06/25 Range/Units 20:23 21:26 23:02 WBC 3.5 L (4.5-10.0) K/mm3 RBC 2.40 L (4.6-6.20) M/mm3 Hgb 8.0 L D (14.0-18.0) g/dL Hct 25.3 L (42.0-52.0) % MCV 105.4 H (80-100) fl MCH 33.3 (26-34) pg MCHC 31.6 L (32-36) g/dl RDW 15.2 H (11.5-14.5) % Plt Count 124 L (150-375) k/mm3 MPV 9.1 (7.4-10.4) fl Immature Gran % (Auto) 2.5 H (0-0.5) % Neut % (Auto) 58.1 (45.5-73.1) % Lymph % (Auto) 27.5 (18.3-44.2) % [place] % (Auto) 9.9 H (2.6-8.5) % Eos % (Auto) 1.4 (0-4.4) % Baso % (Auto) 0.6 (0.2-1.2) % Lymph # (Auto) 0.97 (0.9-3.2) K/mm3 [place] # (Auto) 0.4 (0.1-0.6) K/mm3 Eos # (Auto) 0.1 (0-0.3) K/mm3 Baso # (Auto) 0.0 (0.0-0.1) K/mm3 Abs Immat Gran (auto) 0.09 H (0.00-0.031) K/mm3 Absolute Neuts (auto) 2.1 (1.3-6.7) K/mm3 Absolute Nucleated RBC 0.020 H (0.0-0.012) K/mm3 Band Neutrophils % Not Reportable Nucleated RBC % 0.6 H (0.0-0.2) % Platelet Estimate Decreased (Adequate) Hypochromasia 1+ Anisocytosis 1+ Tear Drop Cells Occasional Ovalocytes Occasional Schistocytes None seen PT 13.7 (11.1-14.7) Seconds INR 1.0 APTT 24.0 (22.3-36.8) Seconds Sodium 136 L (137-145) mmol/L Potassium 3.6 (3.4-5.0) mmol/L Chloride 104 (98-107) mmol/L Carbon Dioxide 20 L (22-30) mmol/L Anion Gap 12 (4-12) mmol/L BUN 17 (9-20) mg/dL Creatinine 1.18 (0.7-1.3) mg/dL Estim Creat Clear Calc 54 ml/min Estimated GFR > 60 (59 - ) Glucose 103 (65-110) mg/dL Lactic Acid 2.1 H (0.7-2.0) mmol/L Calcium 10.3 H (8.4-10.2) mg/dL Total Bilirubin 0.8 (0.2-1.3) mg/dL AST 30 (17-59) U/L ALT 28 (6-50) U/L Alkaline Phosphatase 51 (38-126) U/L Troponin I < 0.012 (0.000-0.034) ng/mL NT-Pro-B Natriuret Pep 955 H (19.9-100) pg/mL Total Protein 8.0 (6.3-8.2) g/dL Albumin 4.4 (3.5-5.1) g/dL Urine Color Yellow (Yellow) Urine Appearance Clear (Clear) Urine pH 5.5 (5.0-9.0) Ur Specific [place] 1.010 (1.001-1.035) Urine Protein Negative (Negative) mg/dL Urine Glucose (UA) Negative (Negative) mg/dL Urine Ketones Negative (Negative) mg/dL Ur Blood (Man) Negative (Negative) Urine Nitrate Negative (Negative) Urine Bilirubin Negative (Negative) Urine Urobilinogen 0.2 (<2.0) mg/dL Leukocyte Esterase Rfl Negative (Negative) BRANDY/UL 04/06/25 Range/Units 23:46 WBC (4.5-10.0) K/mm3 RBC (4.6-6.20) M/mm3 Hgb (14.0-18.0) g/dL Hct (42.0-52.0) % MCV (80-100) fl MCH (26-34) pg MCHC (32-36) g/dl RDW (11.5-14.5) % Plt Count (150-375) k/mm3 MPV (7.4-10.4) fl Immature Gran % (Auto) (0-0.5) % Neut % (Auto) (45.5-73.1) % Lymph % (Auto) (18.3-44.2) % [place] % (Auto) (2.6-8.5) % Eos % (Auto) (0-4.4) % Baso % (Auto) (0.2-1.2) % Lymph # (Auto) (0.9-3.2) K/mm3 [place] # (Auto) (0.1-0.6) K/mm3 Eos # (Auto) (0-0.3) K/mm3 Baso # (Auto) (0.0-0.1) K/mm3 Abs Immat Gran (auto) (0.00-0.031) K/mm3 Absolute Neuts (auto) (1.3-6.7) K/mm3 Absolute Nucleated RBC (0.0-0.012) K/mm3 Band Neutrophils % Nucleated RBC % (0.0-0.2) % Platelet Estimate (Adequate) Hypochromasia Anisocytosis Tear Drop Cells Ovalocytes Schistocytes PT (11.1-14.7) Seconds INR APTT (22.3-36.8) Seconds Sodium (137-145) mmol/L Potassium (3.4-5.0) mmol/L Chloride (98-107) mmol/L Carbon Dioxide (22-30) mmol/L Anion Gap (4-12) mmol/L BUN (9-20) mg/dL Creatinine (0.7-1.3) mg/dL Estim Creat Clear Calc ml/min Estimated GFR (59 - ) Glucose (65-110) mg/dL Lactic Acid 1.6 (0.7-2.0) mmol/L Calcium (8.4-10.2) mg/dL Total Bilirubin (0.2-1.3) mg/dL AST (17-59) U/L ALT (6-50) U/L Alkaline Phosphatase (38-126) U/L Troponin I (0.000-0.034) ng/mL NT-Pro-B Natriuret Pep (19.9-100) pg/mL Total Protein (6.3-8.2) g/dL Albumin (3.5-5.1) g/dL Urine Color (Yellow) Urine Appearance (Clear) Urine pH (5.0-9.0) Ur Specific [place] (1.001-1.035) Urine Protein (Negative) mg/dL Urine Glucose (UA) (Negative) mg/dL Urine Ketones (Negative) mg/dL Ur Blood (Man) (Negative) Urine Nitrate (Negative) Urine Bilirubin (Negative) Urine Urobilinogen (<2.0) mg/dL Leukocyte Esterase Rfl (Negative) BRANDY/UL <Nannette Ware MD - Last Filed: 04/07/25 01:38> Discharge Plan Discharge Clinical Impression: Falls frequently, Generalized weakness <Shyam Burns MD - Last Filed: 04/06/25 21:51> Patient Disposition: Still a Patient <Shyam Burns MD - Last Filed: 04/06/25 21:51> Condition: Stable <Shyam Burns MD - Last Filed: 04/06/25 21:51> Patient Language: Lithuanian <Shyam Burns MD - Last Filed: 04/06/25 21:51> Prescriptions: No Action allopurinol 100 mg tablet 100 mg PO DAILY docusate sodium 100 mg Capsule 100 mg PO Q12H PRN (Reason: Constipation) Qty: 30 0RF doxycycline hyclate 100 mg capsule 100 mg PO BID Qty: 14 0RF <Shyam Burns MD - Last Filed: 04/06/25 21:51> Follow-up/Referrals: PHYSICIAN NOT ON STAFF,NONSTAFF [Non-Staff] <Shyam Burns MD - Last Filed: 04/06/25 21:51>
[2025-04-06] MEDS: SODIUM CHLORIDE 0.9% IV 1,000 ML 999 ML IV CONT ×2 (21:14)
--- OUTSIDE RECORDS SUMMARY | 2025-04-06 21:42 | XMS_ITS | Clinical Summary ---
Author Organization [facility] Address [address] [place] [address] Care Team Providers Care Faculty Support Coordinator Name Role Phone Juan Nguyen MD Primary Care Provider [phone]- [phone] Allergies No known active allergies Medications aspirin 81 mg enteric coated tablet Take 1 tablet (81 mg total) by mouth daily Active colchicine (COLCRYS) 0.6 mg tablet Take 1 tablet (0.6 mg total) by mouth daily 90 tablet 4 3 03/19/20 25 Discontinued allopurinoL (ZYLOPRIM) 100 mg tablet 1 tablet daily-100 mg Daily 90 tablet 3 4 03/19/20 25 Discontinued Active Problems Problem Noted Date Diagnosed Date S/P colonoscopy 06/20/2022 Memory loss 09/05/2021 Assessment & Plan (09/23/2024 1:39 PM CDT): Overall, stable cognitive testing. He is compliant with his CPAP and has not been drinking. Acetylcholinesterase inhibitors not indicated at this time. Information was provided on the SUNBIRD study. Follow-up in 1 year or sooner if need be. Colon polyps:next scope 203107/29/2021 Overview (07/29/2021): Added automatically from request for surgery [id number] Bilateral hand pain 12/31/2019 Chronic pain of both knees 12/31/2019 Obesity 11/06/2017 Obstructive sleep apnea 03/14/2017 Gout 02/23/2017 Spinal stenosis of lumbar region 08/17/2016 Herniated lumbar intervertebral disc 08/04/2016 Numbness of lower extremity 08/04/2016 Lumbar radiculopathy 08/04/2016 Tetralogy of Fallot s/p repair 09/01/2010 Encounters Date Type Department Care Team Description 03/23/2025 Results Follow-Up [facility] [address] [place] [phone] Juan Nguyen MD Reticulocyte Count 03/23/2025 Orders Only [facility] [address] [place] [phone] Juan Nguyen MD Normocytic anemia after acute hemorrhage (Primary Dx) 03/20/2025 1:29 PM CDT - 03/20/2025 11:59 PM CDT Hospital Encounter [address] [address] Normocytic anemia Discharge Disposition: Discharge to home or self care 03/20/2025 Results Follow-Up [facility] [address] [place] [phone] Juan Nguyen MD POCT UA, AUTO W/O SCOPE, POCT hemoglobin A1c, POCT lipid panel, Additional followed-up results: 3 03/20/2025 Orders Only [facility] [address] [place] [phone] Juan Nguyen MD Normocytic anemia (Primary Dx) 03/19/2025 10:00 AM CDT [facility] [address] [place] [phone] Juan Nguyen MD Encounter for Medicare annual wellness exam (Primary Dx); S/P colonoscopy: neg 2021; Lumbar radiculopathy; Memory loss; Obstructive sleep apnea; Idiopathic gout, unspecified chronicity, unspecified site; Tetralogy of Fallot s/p repair 03/09/2025 12:00 PM CDT - 03/09/2025 11:59 PM CDT Hospital Encounter [facility] [address] [place] [address] Discharge Disposition: Discharge to home or self care 03/09/2025 11:59 AM CDT - 03/09/2025 11:59 PM CDT Hospital Encounter [facility] [address] [place] [phone] Memory loss Discharge Disposition: Discharge to home or self care 02/16/2025 1:08 PM CDT - 02/16/2025 11:59 PM CDT Hospital Encounter [facility] [address] [place] [address] Discharge Disposition: Discharge to home or self care 02/16/2025 1:08 PM CDT - 02/16/2025 11:59 PM CDT Hospital Encounter [facility] ([facility]) [address] [place] [phone] Memory loss Discharge Disposition: Discharge to home or self care 02/10/2025 Telephone [facility] [address] [place] [address] Rose Mary Arriola, HUAN 02/10/2025 [facility] [address] [place] [address] Rose Mary Arriola, HUAN 01/29/2025 [facility] [address] [place] [phone] Susie Barnard MA 01/12/2025 Orders Only [facility] [address] [place] [address] Carlos Granados NP Memory loss (Primary Dx) from Last 3 Months Immunizations Immunization Administration Dates Next Due Influenza, Quadrivalent, Spl it, Preservative Free, Intramuscular 07/22/2022,03/25/2020 Moderna SARS-CoV-2 Monovalent Vaccination (12+ Y RS) 09/13/2020,08/16/2020 Pfizer SARS-CoV-2 Monovalent Vaccination (12+ Yrs) PURPLE 06/20/2021 Pfizer Sars-Cov-2 Bivalent Vaccination (12+ YRS) 07/22/2022 Pneumococcal Conjugate Pcv20 03/19/2025 Tdap 11/13/2023 Surgical History Surgery Date Site/Laterality Comments CORONARY ARTERY BYPASS GRAFT Coronary Artery Surgery - (Added by TW Conv) CARDIAC SURGERY SPINAL CORD DECOMPRESSION Medical History Medical History Date Comments Personal history of other di seases of the circulatory system History of congestive heart failure - (Added by TW Conv) Gout Sleep apnea Lumbar spinal stenosis Tetralogy of Fallot s/p surgical repair in childhood Family History Medical History Relation Name Comments Diabetes Father Gout Father Arthritis Mother Dementia Mother in her mid to late 80's Hypertension Mother Family history of hypertension - (Added by TW Conv) Stroke Mother Family history of cerebrovascular accident (CVA) - (Added by TW Conv) Relation Name Status Comments Father Mother Social History Tobacco Use Types Packs/Day Years Used Date Smoking Tobacco: Former Smokeless Tobacco: Never Tobacco Cessation:Counseling Given: Not Answered AUDIT-C Answer Date Recorded Q1: How often do you have a drink containing alc ohol? 2-3 times a week 09/13/2021 Q2: How many drinks containi ng alcohol do you have on a typical day when you are drinking? 3 or 4 09/13/2021 Q3: How often do you have si x or more drinks on one occasion? 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 on file Not on file Not on file Obstetrics History Last Filed Vital Signs Vital Sign Reading Time Taken Comments Blood Pressure 158/71 03/19/2025 9:57 AM CDT Pulse 88 03/19/2025 9:57 AM CDT Temperature 37.2 C (99 F) 09/23/2024 1:14 PM CDT Respiratory Rate 15 09/13/2021 3:47 PM EDUCATIONAL PROGRAM DIRECTOR Oxygen Saturation 100% 03/19/2025 9:57 AM CDT Inhaled Oxygen Concentration - - Weight 85.7 kg (189 lb) 03/19/2025 9:57 AM CDT Height 175.3 cm (5' 9.02) 03/19/2025 9:57 AM CD T Body Mass Index 27.9 03/19/2025 9:57 AM CDT Plan of Treatment Scheduled Procedures Name Priority Associated Diagnoses Date/Ti me ESOPHAGOGASTRODUODENOSCOPY Gastroesophageal reflux disease, unspecified whether esophagitis present Health Maintenance Due Date Last Done Comments Depression Screening 1960 Hepatitis C Screening 1960 Hepatitis B Screening 1976 Zoster Vaccine (1 of 2) 2008 Fall Risk Assessment 09/13/2022 09/13/2021 Abdominal Aortic Aneurysm (A AA) Screen 2023 Covid-19 Vaccine (2024-2 6 season) 2025 07/22/2022, 06/20/2021, 09/13/2020, Additional history exists Influenza Vaccine (#1) 2025 07/22/2022, 2019 Well Visit 65+ 03/19/2026 03/19/2025, 10/16, 06/20/2022, Additional history exists Prostate Cancer Screening-PSA 03/19/2027, 02/21/2024, 11/13/2023, Additional history exists Colon Cancer Screening-Colonoscopy 09/14/2031 09/13/2021 DTaP/Tdap/Td Vaccine (2 - Td or Tdap) 11/12/2033 11/13/2023 Colon Cancer Screening-CT Colonography Discontinued 09/13/2021 Colon Cancer Screening-DNA Stool Discontinued 09/14/19 Colon Cancer Screening-FIT Discontinued 09/13/2021 Colon Cancer Screening-Sigmoidoscopy Discontinued 09/13/2021 Pneumococcal vaccine 65+ Completed 03/19/2025 Procedures Procedure Name Priority Date/Time Associated Diagnosis Comments RETICULOCYTES Routine 03/20/2025 8:17 AM CDT Normocytic anemia VITAMIN B12 Routine 03/20/2025 8:08 AM CDT Normocytic anemia IRON PROFILE W/ IBC Routine 03/20/2025 8 :08 AM CDT Normocytic anemia POCT URINALYSIS, AUTO W/O SCOPE Routine 03/19/2025 10:46 AM CDT Encounter for Medicare annual wellness exam PSA SCREEN Routine 03/19/2025 10:19 AM CDT Encounter for Medicare annual wellness exam CBC WITH AUTO DIFFERENTIAL Routine 03/19/2025 10:19 AM CDT Encounter for Medicare annual wellness exam COMPREHENSIVE METABOLIC PANEL Routine 03/19/2025 10:19 AM CDT Encounter for Medicare annual wellness exam POCT LIPID PANEL Routine 03/19/2025 10:1 0 AM CDT Encounter for Medicare annual wellness exam POCT HEMOGLOBIN A1C Routine 03/19/2025 1 0:09 AM CDT Encounter for Medicare annual wellness exam PET/CT TAU BRAIN IMAGING Schedule Routine, Read Routine (OP Routine) 03/09/2025 3:28 PM CDT Memory loss PET/CT AMYLOID BRAIN Schedule Routine, Read Routine (OP Routine) 02/16/2025 2:44 PM CDT Memory loss COLONOSCOPY 09/13/2021 3:00 PM EDUCATIONAL PROGRAM DIRECTOR from Last 3 Months or Most Recently Relevant to Health Maintenance Results * (ABNORMAL) Reticulocyte Count (03/20/2025 8:17 AM CDT) Retics, absolute 96(H) 20 - 87 K/cumm Retics 3.9(H) 0.4 - 2.9 % [facility] Reticulocyte Hgb 33.3 30.5 - 38.0 pg [facility] Blood 03/20/2025 8:17 AM CDT 03/20/2025 2:40 PM CDT us Juan Nguyen MD LAB BLOOD ORDERABLES Final Result [facility] [place] [address] * (ABNORMAL) Iron profile w/ IBC (03/20/2025 8:08 AM CDT) Pathologist [facility] Iron 61.5 59.0 - 158.0 ug/dL [facility] Total Iron Binding Capacity 366.0 ug/dL [facility] Unsaturated Iron Binding Capacity 304.5 112.0 - 346.0 ug/dL [facility] Iron Saturation 16.8(L) 25.0 - 45.0 % [facility] Blood 03/20/2025 8:08 AM CDT 03/20/2025 8:15 AM CDT Juan Nguyen MD LAB BLOOD ORDERABLES Final Result Performing Organization Address [facility]/ZIP Co de Phone Number [address] * Vitamin B12 (03/20/2025 8:08 AM CDT) Pathologist [facility] Vitamin B12 415 232 - 1,245 pg/mL [facility] Blood 03/20/2025 8:08 AM CDT 03/20/2025 8:15 AM CDT Juan Nguyen MD LAB BLOOD ORDERABLES Final Result Performing Organization Address [facility] Co de Phone Number [address] * POCT UA, AUTO W/O SCOPE (03/19/2025 10:46 AM CDT) Pathologist [facility] Color, Urine, POC Yellow Clarity, ur, POC Clear Clear Glucose, ur, POC Negative Negative Bilirubin, ur, POC Negative Negative Ketones, ur, POC Negative Negative Specific [place], POC 1.010 1.003 - 1.030 Blood, ur, POC Negative Negative pH, ur, POC 7.0 5.0 - 8.0 Protein, ur, POC Negative Negative Urobilinogen, Urine, POC 0.2 <2 MG/DL Leukocytes, ur, POC Negative Negative Nitrite, ur, POC Negative Negative Appearance, fld Clear Clear Urine 03/19/2025 10:4 6 AM CDT Juan Nguyen MD POINT OF CARE TEST ORDERAB LES Edited Result - Final * PSA screen (03/19/2025 10:19 AM CDT) PSA, Total 0.4 0.0 - 4.0 ng/mL [facility] Blood 03/19/2025 10:1 9 AM CDT 03/19/2025 10:36 AM CDT Juan Nguyen MD LAB BLOOD ORDERABLES Final Result [facility] [address] [id number] * (ABNORMAL) CBC with auto differential (03/19/2025 10:19 AM CDT) WBC 3.2(L) 3.5 - 10.0 K/uL [facility] RBC 2.53(L) 4.60 - 6.20 M/uL [facility] Hemoglobin 8.6(L) 13.9 - 17.7 g/dL [facility] Hematocrit 24.9(L) 35.0 - 55.0 % [facility] MCV 98.3 75.0 - 100.0 fL [facility] MCH 34.20 25.00 - 35.00 pg [facility] MCHC 34.80 31.00 - 38.00 g/dL [facility] RDW 15.3 11.0 - 16.0 % [facility] Platelets 140 140 - 400 K/uL [facility] MPV 8.0 8.0 - 11.0 fL [facility] Granulocyte, Absolute 1.9 1.2 - 8.0 K/uL [facility] Lymphocyte, Absolute 0.9 0.5 - 5.0 K/uL [facility] Monocyte, Absolute 0.4 0.1 - 1.5 K/uL [facility] Granulocyte, Percentage 61.9 35.0 - 80.0 % [facility] Lymphocyte, Percentage 29.6 15.0 - 50.0 % [facility] Monocyte, Percentage 8.5 2.0 - 15.0 % [facility] Blood 03/19/2025 10:1 9 AM CDT 03/19/2025 10:36 AM CDT Juan Nguyen MD LAB BLOOD ORDERABLES Final Result [facility] [address] [phone] * (ABNORMAL) Comprehensive metabolic panel (03/19/2025 10:19 AM CDT) Glucose 105 74 - 200 mg/dL [facility] BUN 15(L) 18 - 23 mg/dL [facility] Creatinine 1.1 0.7 - 1.3 mg/dL [facility] BUN/Creat Ratio 13 Ratio [facility] Bilirubin, Total 0.7 0.0 - 1.2 mg/dL [facility] AST (SGOT) 22 0 - 40 U/L [facility] ALT (SGPT) 24 10 - 50 U/L [facility] Alkaline phosphatase 50 40 - 129 U/L [facility] Calcium 10.8(H) 8.8 - 10.2 mg/dL [facility] Sodium 138 135 - 145 mEq/L [facility] Potassium 4.5 3.5 - 5.1 mEq/L [facility] Chloride 104 98 - 107 mEq/L [facility] CO2 21.7(L) 22.0 - 32.0 mEq/L [facility] Anion Gap 12 3 - 12 mEq/L [facility] Total Protein 7.3 6.0 - 8.1 g/dL [facility] Albumin 4.5 3.5 - 5.2 g/dL [facility] Globulin 2.8 g/dL [facility] Albumin/Globulin 1.6 Ratio [facility] eGFR 69.81 [facility] Blood 03/19/2025 10:1 9 AM CDT 03/19/2025 10:36 AM CDT Juan Nguyen MD LAB BLOOD ORDERABLES Final Result [facility] [address] [phone] * (ABNORMAL) POCT lipid panel (03/19/2025 10:10 AM CDT) Cholesterol, POC 108 <200 MG/DL HDL, POC 37(A) >=40 mg/dL Triglycerides, POC 61 <=149 mg/dL LDL Cholesterol POC 59 <=129 mg/dL Chol/HDL Ratio, POC 2.9 NONE Non-HDL Cholesterol, POC 71 NONE mg/dL Cholesterol Total, POC 108 30 - 199 mg/dL Capillary blood 03/19/2025 1 0:10 AM CDT Juan Nguyen MD POINT OF CARE TEST ORDERAB LES Final Result * POCT hemoglobin A1c (03/19/2025 10:09 AM CDT) Hemoglobin A1C, POC 4.8 4.0 - 5.6 % Blood 03/19/2025 10:0 9 AM CDT Juan Nguyen MD POINT OF CARE TEST ORDERAB LES Final Result * Tau PET Brain Imaging for [facility] Research Study (REQUIRED) (03/09/2025 3:28 PM CDT) Anatomical Region Laterality Modality Positron Emissio n Tomography (PET) 03/09/2025 4:12 PM CDT Impressions 03/09/2025 4:46 PM CDT Positive tau-PET study, 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 Dictated by: Rosetta Gonsales MD The radiology attending physician has personally reviewed this study, and had reviewed and/or edited this written report and agrees with it. Electronically signed by: Beth Arredondo M.D. Narrative 03/09/2025 4:46 PM CDT EXAMINATION: BRAIN TAU-PET/CT IMAGING DATE OF STUDY: 03/09/2025 SCANNER: [facility] N PET Vision (NV1). This is a high-resolution scanner, which can result in higher SUVs (and even detection of new small lesions) compared to older scanners. RADIOPHARMACEUTICAL: 10.66 mCi F-18 Flortaucipir i.v. HISTORY: 64-year-old man with memory loss undergoing evaluation for mild cognitive impairment. Recent positive amyloid PET/CT on 02/16/2025. TECHNIQUE: At 101 minutes after injection of F-18 Flortaucipir, noncontrast CT images of the head were obtained for attenuation correction and for fusion with emission PET images to allow for anatomical localization of PET findings. Standard emission PET imaging of the brain was then performed. COMPARISON: Brain MRI 04/09/2022, amyloid PET/CT 02/16/2025 FINDINGS: There is asymmetric increased neocortical activity in the right posterior lateral and medial temporal and right occipital lobes. Bilateral anteriomedially and left posterior medial temporal. Incidental CT findings: Generalized cerebral atrophy. Procedure Note Beth Arredondo MD - 03/09/2025 EXAMINATION: BRAIN TAU-PET/CT IMAGING DATE OF STUDY: 03/09/2025 SCANNER: [employer] N PET Vision (NV1). This is a high-resolution scanner, which can result in higher SUVs (and even detection of new small lesions) compared to older scanners. RADIOPHARMACEUTICAL: 10.66 mCi F-18 Flortaucipir i.v. HISTORY: 64-year-old man with memory loss undergoing evaluation for mild cognitive impairment. Recent positive amyloid PET/CT on 02/16/2025. TECHNIQUE: At 101 minutes after injection of F-18 Flortaucipir, noncontrast CT images of the head were obtained for attenuation correction and for fusion with emission PET images to allow for anatomical localization of PET findings. Standard emission PET imaging of the brain was then performed. COMPARISON: Brain MRI 04/09/2022, amyloid PET/CT 02/16/2025 FINDINGS: There is asymmetric increased neocortical activity in the right posterior lateral and medial temporal and right occipital lobes. Bilateral anteriomedially and left posterior medial temporal. Incidental CT findings: Generalized cerebral atrophy. 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 Dictated by: Rosetta Gonsales MD The radiology attending physician has personally reviewed this study, and had reviewed and/or edited this written report and agrees with it. Electronically signed by: Beth Arredondo M.D. Carlos Granados LITIGATION DOCKET MANAGER IMG PET PROCEDURES Final Result * Amyloid PET Brain Imaging for [facility] Research Study (02/16/2025 2:44 PM CDT) Anatomical Region Laterality Modality Positron Emissio n Tomography (PET) 02/16/2025 4:16 PM CDT Impressions 02/16/2025 5:48 PM CDT 1. 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 2. Positive Centiloid value calculated as 46.8. General comments on brain amyloid-PET quantification using the Centiloid (CL) scale based on the published literature. The CL scale compensates for differences between the different FDA-approved amyloid imaging agents. The scale is anchored at 0 and 100, which correspond to the average SUVr, respectively, for young, healthy controls and typical AD patients with mild-moderate plaques. Note that values below 0 and above 100 are possible on this scaling system. Under 10 CL: Negative 10-30 CL: Intermediate range Over 30 CL: Positive These thresholds are derived from studies that have validated the Centiloid scale against neuropathological findings and clinical diagnoses, ensuring that the categorization is both standardized and clinically meaningful [1-3]. This approach supports consistent interpretation and reporting across different imaging centers and tracers, enhancing the reliability of amyloid PET in clinical practice. Reference: Centiloid recommendations for clinical xhlrjpt-zw-[id number] from the AMYPAD consortium PMCID: [id number] DOI:10.1002/alz.64238 General comments on amyloid-PET interpretation: A negative amyloid-PET study indicates sparse to no neuritic plaques and is inconsistent with Alzheimer disease at the time of the study. A negative study reduces the likelihood that the patient's cognitive impairment is due to Alzheimer disease. A positive amyloid-PET study indicates moderate to frequent neuritic plaques which is the amount present in patients with Alzheimer disease. However, a positive amyloid-PET study does not establish the diagnosis of Alzheimer disease. Moderate to frequent neuritic plaques can also be present in patients with other neurological conditions as well as in older people with normal cognition. Dictated by: Chance Carcamo M.D. The radiology attending physician has personally reviewed this study, and had reviewed and/or edited this written report and agrees with it. Electronically signed by: Va Corado M.D. Narrative 02/16/2025 5:48 PM CDT EXAMINATION: BRAIN AMYLOID-PET/CT IMAGING DATE OF STUDY: 02/16/2025 SCANNER: [employer] (NV1). RADIOPHARMACEUTICAL: 11.8 mCi F-18 florbetapir i.v. HISTORY: 64-year-old with memory loss and mild cognitive impairment, undergoing evaluation for cognitive impairment. TECHNIQUE: At 30 minutes after injection of tracer, non-contrast CT images of the head were obtained for attenuation correction and for fusion with emission PET images to allow for anatomical localization of PET findings. Standard emission PET imaging of the brain was then performed. The study was interpreted on the [employer] workstation. [employer] semiquantitative software and [employer] software was used for centiloid quantification of the current study. COMPARISON CT/MRI: 04/09/2022 brain MRI FINDINGS: There is normal cortical-white matter contrast in the cerebellum. There is decreased cortical-white matter contrast involving the lateral temporal, parietal and frontal lobes, posterior cingulate gyrus and precuneus The calculated centiloid value is 46.[address] findings: No acute intracranial findings. Moderate cerebral atrophy, better evaluated on the prior brain MRI.. Procedure Note Va Corado MD - 02/16/2025 EXAMINATION: BRAIN AMYLOID-PET/CT IMAGING DATE OF STUDY: 02/16/2025 SCANNER: [facility] PET Vision (NV1). RADIOPHARMACEUTICAL: 11.8 mCi F-18 florbetapir i.v. HISTORY: 64-year-old with memory loss and mild cognitive impairment, undergoing evaluation for cognitive impairment. TECHNIQUE: At 30 minutes after injection of tracer, non-contrast CT images of the head were obtained for attenuation correction and for fusion with emission PET images to allow for anatomical localization of PET findings. Standard emission PET imaging of the brain was then performed. The study was interpreted on the [employer] workstation. [employer] semiquantitative software and [employer] software was used for centiloid quantification of the current study. COMPARISON CT/MRI: 04/09/2022 brain MRI FINDINGS: There is normal cortical-white matter contrast in the cerebellum. There is decreased cortical-white matter contrast involving the lateral temporal, parietal and frontal lobes, posterior cingulate gyrus and precuneus The calculated centiloid value is 46.[address] findings: No acute intracranial findings. Moderate cerebral atrophy, better evaluated on the prior brain MRI.. IMPRESSION: 1. 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 2. Positive Centiloid value calculated as 46.8. General comments on brain amyloid-PET quantification using the Centiloid (CL) scale based on the published literature. The CL scale compensates for differences between the different FDA-approved amyloid imaging agents. The scale is anchored at 0 and 100, which correspond to the average SUVr, respectively, for young, healthy controls and typical AD patients with mild-moderate plaques. Note that values below 0 and above 100 are possible on this scaling system. Under 10 CL: Negative 10-30 CL: Intermediate range Over 30 CL: Positive These thresholds are derived from studies that have validated the Centiloid scale against neuropathological findings and clinical diagnoses, ensuring that the categorization is both standardized and clinically meaningful [1-3]. This approach supports consistent interpretation and reporting across different imaging centers and tracers, enhancing the reliability of amyloid PET in clinical practice. Reference: Centiloid recommendations for clinical eucjdlr-lx-zvq from the AMYPAD consortium PMCID: [id number] DOI:10.1002/alz.27931 General comments on amyloid-PET interpretation: A negative amyloid-PET study indicates sparse to no neuritic plaques and is inconsistent with Alzheimer disease at the time of the study. A negative study reduces the likelihood that the patient's cognitive impairment is due to Alzheimer disease. A positive amyloid-PET study indicates moderate to frequent neuritic plaques which is the amount present in patients with Alzheimer disease. However, a positive amyloid-PET study does not establish the diagnosis of Alzheimer disease. Moderate to frequent neuritic plaques can also be present in patients with other neurological conditions as well as in older people with normal cognition. Dictated by: Chance Carcamo M.D. The radiology attending physician has personally reviewed this study, and had reviewed and/or edited this written report and agrees with it. Electronically signed by: Va Corado M.D. us Carlos Granados LITIGATION DOCKET MANAGER IMG PET PROCEDURES Final Result * COLONOSCOPY (09/13/2021 3:00 PM EDUCATIONAL PROGRAM DIRECTOR) Anatomical Region Laterality Modality Other Narrative Procedure Note Uri Hodges MD PhD - 09/13/2021 3:00 PM [facility] Patient Name: Ramon Mendoza Procedure Date: 09/13/2021 3:00 PM Date of : 1960 Admit Type: Outpatient Age: 61 Gender: Male Attending MD: Uri Hodges MD,PHD Room: [facility] ENDOSCOPY ROOM 8 Note Status: Finalized Procedure: Colonoscopy Indications: High risk colon cancer surveillance: Personalhistory of colonic polyps, Last colonoscopy: June2012 Referring MD: Juan Nguyen M.D. Providers: Uri Hodges MD, PHD Medicines: Monitored Anesthesia Care Complications: No immediate complications. Estimated Blood Loss: Estimated blood loss: none. Procedure: Pre-Anesthesia Assessment: - Immediately prior to administration ofmedications, the patient was re-assessed for adequacy to receive sedatives. - The risks and benefits of the procedure and the sedation options and risks were discussed with the patient. All questions were answered and informed consent was obtained. The benefits, risks and alternatives of theprocedure and sedation were discussed and informed consentwas obtained. All questions were answered. Please referto the signed informed consent document in the medical record. The scope was passed under direct vision.The [id number] endoscope was introduced through the anus and advanced to the cecum, identified by appendiceal orifice and ileocecal valve. The colonoscopy was performed without difficulty. The patient tolerated the procedure well. The qualityof the bowel preparation was excellent. The quality of the bowel preparation was evaluated using the BBPS (Wheeler Bowel Preparation Scale) with scores of:Right Colon = 3, Transverse Colon = 3 and Left Colon = 3 (entire mucosa seen well with no residual staining, small fragments of stool or opaque liquid). Thetotal BBPS score equals 9. The bowel preparation used was polyethylene glycol (PEG) via split doseinstruction. Bowel prep was administered using a split dose. Findings: The perianal and digital rectal examinations were normal. Scattered small-mouthed diverticula were found from transverse colonto sigmoid colon. The exam was otherwise without abnormality on direct and retroflexion views. Impression: - Diverticulosis from transverse colon to sigmoid colon. - The examination was otherwise normal on directand retroflexion views. Recommendation: - Repeat colonoscopy in 10 years forsurveillance. - High fiber diet. Attending Participation: I personally performed the entire procedure. Electronically signed by Uri Hodges MD. Uri Hodges MD, PHD 09/13/2021 3:25:16 PM Number of Addenda: 0 Note Initiated On: 09/13/2021 3:00 PM Recognized by the [employer] for promoting quality in endoscopy us Uri Hodges MD PhD ENDOSCOPY PROCEDURES Chelle l Result from Last 3 Months or Most Recently Relevant to Health Maintenance Insurance [facility] CHOICE PLUS MEDICARE [facility] CHOICE PLUS [place] [id number] MEDICARE [facility] Advance Directives For more information, please contact: [phone] * Full Code (Latest Code Status on File) Date Activated Date Inactivated Comments 09/13/2021 2:27 PM 09/13/2021 8:09 PM Care Teams Faculty Support Coordinator Relationship Specialty Start Date End Date Juan Nguyen MD PCP - General 10/30/16
--- OUTSIDE RECORDS SUMMARY | 2025-04-06 21:42 | XMS_ITS | Encounter Summary ---
Author Organization [facility] Address [address] [place] [address] Phone Care Team Providers Care Portable Feed Mill Operator Name Role Phone Juan Nguyen MD Primary Care Provider +1- [phone] Encounter Details Date Type Department Care Team (Late st Contact Info) Description 12/17/2017 Therapy [facility] Medicine General Neurology [address] 6[address] [place] [id number] Jess Davis MA Social History Tobacco Use Types Packs/Day Years Used Date Smoking Tobacco: Former Sex and Gender Information Value Date Recorded Sex Assigned at Not on file 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
--- OUTSIDE RECORDS SUMMARY | 2025-04-06 21:42 | XMS_ITS | Encounter Summary ---
Author Organization [facility] Address [address] [place] [address] Care Team Providers Care Generator Man Name Role Phone Juan Nguyen MD Primary Care Provider +1- [phone] Encounter Details Date Type Department Care Team (Late st Contact Info) Description 03/20/2025 Results Follow-Up [facility] [address] [address] Juan Nguyen MD [address] [place] [id number] POCT UA, AUTO W/O SCOPE, POCT hemoglobin A1c, POCT lipid panel, Additional followed-up results: 3 Social History Tobacco Use Types Packs/Day Years Used Date Smoking Tobacco: Former Smokeless Tobacco: Never AUDIT-C Answer Date Recorded Q1: How often [...] on file 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
--- OUTSIDE RECORDS SUMMARY | 2025-04-06 21:42 | XMS_ITS | Encounter Summary ---
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
--- OUTSIDE RECORDS SUMMARY | 2025-04-06 21:42 | XMS_ITS | Encounter Summary ---
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
[2025-04-06 21:53] LABS: Hematocrit 25.3 % (42.0-52.0); Hemoglobin 8.0 g/dL (14.0-18.0); Immature Granulocyte Percent A 2.5 % (0-0.5); Lymphocytes Absolute Auto 0.97 K/mm3 (0.9-3.2); Mean Corpuscular HGB Conc 31.6 g/dl (32-36); Mean Corpuscular Hemoglobin 33.3 pg (26-34); Mean Corpuscular Volume 105.4 fl (80-100); Nucleated Red Blood Cells Absolute Auto 0.020 K/mm3 (0.0-0.012); Nucleated Red Blood Cells Perc 0.6 % (0.0-0.2); Platelet Count Result 124 k/mm3 (150-375); Red Blood Count 2.40 M/mm3 (4.6-6.20); White Blood Count 3.5 K/mm3 (4.5-10.0)
[2025-04-06 21:56] LABS: NT Pro B Type Natriuretic Pept 955 pg/mL (19.9-100)
[2025-04-06 22:12] LABS: Anisocytosis 1+; Hypochromasia 1+
[2025-04-06 22:13] LABS: Ovalocytes Occasional; Schistocytes None Seen; Tear Drop Cells Occasional
--- NOTE | 2025-04-06 23:09 | PC.NURSE ---
Received report from HUAN Cortez for cont. of care. Pt lying on stretcher, respirations even and unlabored. Pt on cont. cardiac and pulse oximeter monitor. Pt provided with urine cup and assisted to bathroom by this RN.
[2025-04-06 23:21] LABS: Add Urine Microscopic? NO; Appearance Urine Clear (Clear); Glucose Urine UA Negative (Negative); Leukocyte Esterase Ur Negative LEU/UL (Negative); Nitrate Urine Negative (Negative); Specific Grav Ur 1.010 (1.001-1.035)
[2025-04-07] VITALS (28 sets, daily range): BP systolic 104–134; BP diastolic 51–67; PULSE 71–88; RESP 12–20; TEMP 35.6–36.8; O2SAT 94–100; BMI 28.3
--- NOTE | 2025-04-07 | ECHO_ITS ---
Patient Info Name: Ramon Mendoza Age: 65 years : 1960 Gender: Male Ht: 69 in Wt: 191 lbs BSA: 2.07 m2 HR: 85 bpm BP: 134 / 60 mmHg Heart Rhythm: Sinus Rhythm Technical Quality: Fair Exam Date: 04/07/2025 11:03 AM Patient Status: O Admit Date: 04/07/2025 Exam Type: CA echo dop color flow w con Complete two-dimensional, color flow and Doppler transthoracic echocardiogram is performed. Staff Referring Physician: Shyam Burns MD Cupola Tapper Helper: Isis Steel Attending Provider: Gayle Martinez Contrast/Agitated Saline Contrast/Ag. Saline: Definity Amount: 2.00 ml Existing IV Access: Yes IV Access Condition: patent with no signs of infiltration Summary 1. Complete two-dimensional, color flow and Doppler transthoracic echocardiogram is performed. 2. Mild concentric LVH with good systolic function, paradoxical septal motion because of bundle branch block. 3. Mild left atrial enlargement. 4. Sclerotic aortic valve with good leaflet separation. 5. Deviation of the interatrial septum right to left. 6. Moderate tricuspid valve regurgitation. Left Ventricle Left ventricular chamber dimension is normal. Left ventricular systolic function is normal, estimated at 65-70. There is mild concentric increased left ventricular wall thickness. Left ventricular septal wall motion is abnormal with septal motion related to bundle branch block. The left ventricular diastolic function is grade I diastolic dysfunction. Right Ventricle Right ventricular chamber dimension is normal. Left Atria Left atrial chamber dimension is normal. Right Atria Right atrial chamber dimension is mildly enlarged. Aortic Valve The aortic valve is trileaflet. There is mild aortic valve sclerosis. Pulmonic Valve The pulmonic valve is not well visualized. Mitral Valve The mitral valve has normal leaflets. There is trace mitral valve regurgitation. Tricuspid Valve The tricuspid valve leaflets are normal. There is mild to moderate tricuspid valve regurgitation. Mild pulmonary hypertension, estimated pulmonary arterial systolic pressure is 43 mmHg. Pericardium/Pleural The pericardium appears normal. Aorta The aortic root size at the sinus of Valsalva is normal. Left Ventricular Outflow Tract Name Value Normal LVOT 2D LVOT Diameter 2.2 cm LVOT Doppler LVOT Peak Velocity 110 cm/s LVOT Peak Gradient 5 mmHg LVOT Mean Gradient 3 mmHg LVOT VTI 24 cm LVOT VTI/AV VTI Ratio 0.9 LVOT Stroke Volume 87 ml LVOT CO 19.1 l/min LVOT CI 9.2 l/min/m2 Pulmonic Valve Name Value Normal PV Doppler PV Peak Velocity 115 cm/s PV Peak Gradient 5 mmHg Mitral Valve Name Value Normal MV Diastolic Function MV E Peak Velocity 131 cm/s MV A Peak Velocity 105 cm/s MV E/A 1.2 MV Decel Time (PW) 133 ms MV Annular TDI MV E/e' (Septal) 11.1 MV E/e' (Lateral) 10.2 MV E/e' (Average) 10.7 Tricuspid Valve Name Value Normal TV Regurgitation Doppler TR Peak Velocity 266 cm/s TR Peak Gradient 28 mmHg Estimated PAP/RSVP RA Pressure 15 mmHg <=5 PA Systolic Pressure 43 mmHg <36 RV Systolic Pressure 43 mmHg <36 TV Annular TDI TV Lateral Crystal s' Velocity 12.2 cm/s >=9.5 Aorta Name Value Normal Ascending Aorta Ao Root Diameter (MM) 3.4 cm Ao Root Diam Index (MM) 1.6 cm/m2 Aortic Valve Name Value Normal AV Doppler AV Peak Velocity 124 cm/s AV Peak Gradient 6 mmHg AV Mean Gradient 4 mmHg AV VTI 26 cm AV Area (Cont Eq VTI) 3.4 cm2 >=3.0 AV Area (Cont Eq Rodney) 3.2 cm2 AV DI (Rodney) 0.89 AV Regurgitation 2D LVOT Area 3.6 cm2 Ventricles Name Value Normal LV Dimensions 2D/MM IVS Diastolic Thickness (2D) 0.9 cm 0.6-1.0 LVID Diastole (2D) 4.8 cm 4.2-5.8 LVIW Diastolic Thickness (2D) 0.9 cm 0.6-1.0 LVID Systole (2D) 3.2 cm 2.5-4.0 LVOT Diameter 2.2 cm LV Mass (2D Cubed) 143.76 g 88.00-224.00 LV Mass Index (2D Cubed) 69 g/m2 49-115 Relative Wall Thickness (2D) 0.38 <=0.42 LV Fractional Shortening/Ejection Fraction 2D/MM LV Fractional Shortening (2D) 32 % 25-43 LV EF (2D Teichholz) 60 % LV Diastolic Volume (4C MOD) 129 ml LV EF (4C MOD) 68 % LV Diastolic Volume (2C MOD) 149 ml LV EF (2C MOD) 67 % LV Diastolic Volume (BP MOD) 142 ml 62-150 LV Diastolic Volume Index (BP MOD) 69 ml/m2 34-74 LV Systolic Volume (BP MOD) 45 ml 21-61 LV Systolic Volume Index (BP MOD) 22 ml/m2 11-31 LV EF (BP MOD) 68 % 52-72 LV Diastolic Length (4C) 9.3 cm LV Systolic Length (4C) 7.2 cm LV Stroke Volume (4C MOD) 88 ml RV Dimensions 2D/MM RVID Diastole (2D) 3.9 cm 2.1-3.5 Atria Name Value Normal LA Dimensions LA Volume (4C A-L) 73 ml LA Volume (BP A-L) 72 ml RA Dimensions RA Systolic Major Hughes Length (4C) 6.0 cm 2.1-2.7 RA Area (4C) 24.8 cm2 <=18.0 Report Signatures
--- NOTE | 2025-04-07 04:05 | ADMGEN ---
This patient, Ramon Mendoza, was admitted to 3 Med Surg Room 307-01. Recieved verbal report from ER nurse HUAN Bledsoe. Patient/family oriented to hospital policies and general routines including ID bracelet, bed and alarms, visiting hours, pain management, procedures, bathroom and other care routines, personal items, smoking policy, room service/diet, and visiting hours. Information on how to activate the Rapid Response Team has been discussed. Patient are encouraged to report perceived risks to care and to ask questions if they do not understand what they are told or what they should do.
[2025-04-07] MEDS: ASPIRIN 81 MG ENTERIC TABLET PO (06:30)
[2025-04-07 06:55] LABS: Immature Reticulocyte Fraction 29.7 % (3.0-15.9); Reticulocyte Hemoglobin Conten 33.7 pg (28.2-36.6); Reticulocytes Absolute 0.07 10^6/uL (0.02-0.10)
[2025-04-07 06:56] LABS: Hematocrit 24.7 % (42.0-52.0); Hemoglobin 7.5 g/dL (14.0-18.0); Mean Corpuscular HGB Conc 30.4 g/dl (32-36); Mean Corpuscular Hemoglobin 33.3 pg (26-34); Mean Corpuscular Volume 109.8 fl (80-100); Platelet Count Result 112 k/mm3 (150-375); Red Blood Count 2.25 M/mm3 (4.6-6.20); White Blood Count 2.6 K/mm3 (4.5-10.0)
--- NOTE | 2025-04-07 07:03 | P.HP_ITS ---
H&P: HPI History of Present Illness Date/Time: 04/07/25 07:03 Chief Complaint: frequent falls Narrative: Patient is a 65-year-old male with past medical history of gout, tetralogy of Fallot s/p cardiac surgery as a child, who presents with frequent falls who presented with falls, possible slurred speech/staring episode per ER note. Patient is alert and oriented x4. Family is not present at the time of my asses sment. Patient states about 6 months ago he began having a little bit of trouble with his balance. Family has also noticed that he has had trouble with his memory. He has been following at [facility] for workup for dementia. States that yesterday he bent over and lost his balance and fell onto his knees. Denied prodromal lightheadedness, loss of consciousness, head injury. ER note mentions possible slurred speech however speech is clear upon my assessment patient denies any history of this. Denies any facial droop, numbness/tingling, unilateral weakness, fever, chills, chest pain, shortness of breath. In ED, WBC 2.6, Hgb 7.5, Plt 112, MCV 109. UA negative for infection. CT head no acute process. CTA head and neck with no LVO or significant stenosis, but with widespread lytic lesions of the bone. CXR with cardiomegaly with mild interstitial edema. Review of Systems Review of Systems: All systems reviewed & are unremarkable except as noted in HPI and below PMFSH Past Medical History Medical History Tetralogy of Fallot Gout Surgical History Surgical History History of open heart surgery Noa-Taussig shunt and subsequent Tetralogy of Fallot repair. History of spinal surgery Family History Family History Other No pertinent family history Social History Social History Social History: Surrogate decision maker: Cindy Mendoza, . Code status: Full code. Smoking packs per day: 1 Smoking cigarettes per day: 20.0 Smoking status: Former smoker Tobacco type: cigarettes Additional smoking assessment comments: stopped smoking ay 38yrs old Alcohol intake: former Drinks per week: 1 Substance use: never Lack of Transportation: No Lack of Food: Never True Current Housing: I Have Housing Concerned About Future Housing: No Difficulty Paying Gas/Electric Bills: No Difficulty Paying for Meds: No Currently Unemployed: No Education: Bachelor's Degree Difficulty w/ Childcare or Family Care: No Additional living arrangements comments: The patient lives in [place] 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 Gender identity (if verbalized by the patient): Male Spiritual care concerns: No Meds Home Medications and Allergies Home Medications ?Medication ?Instructions ?Recorded ?Confirmed ?Type aspirin 81 mg tablet,delayed 81 mg PO DAILY 04/07/25 0 04/07/25 History release (Adult Low Dose Aspirin) Allergies Allergy/AdvReac Type Severity Reaction Status Date / Time No Known Allergies Allergy Verified 04/06/25 18:57 Vital Signs Vital Signs - 24 hr 04/06/25 18:51 04/06/25 20:24 04/06/25 20:26 Temperature 98.4 F Pulse Rate 98 90 92 Respiratory Rate 14 13 22 H Blood Pressure 140/55 L 104/56 L Pulse Oximetry 100 99 99 Oxygen Delivery Room Air 04/06/25 20:30 04/06/25 20:31 04/06/25 20:53 Temperature Pulse Rate 86 86 88 Respiratory Rate 18 18 27 H Blood Pressure 90/77 L 91/69 L Pulse Oximetry 98 99 98 Oxygen Delivery 04/06/25 21:00 04/06/25 21:15 04/06/25 21:30 Temperature Pulse Rate 86 88 Respiratory Rate 20 19 Blood Pressure 80/66 L 90/66 L Pulse Oximetry 98 97 Oxygen Delivery 04/06/25 22:30 04/06/25 23:05 04/06/25 23:06 Temperature Pulse Rate 79 84 82 Respiratory Rate 18 20 24 H Blood Pressure 131/57 L Pulse Oximetry 98 100 100 Oxygen Delivery 04/06/25 23:30 04/06/25 23:31 04/06/25 23:45 Temperature Pulse Rate 78 76 78 Respiratory Rate 17 19 18 Blood Pressure 108/57 L 109/57 L Pulse Oximetry 100 100 Oxygen Delivery 04/06/25 23:46 04/07/25 00:00 04/07/25 00:01 Temperature Pulse Rate Respiratory Rate Blood Pressure 116/63 Pulse Oximetry 98 100 94 Oxygen Delivery 04/07/25 00:15 04/07/25 00:16 04/07/25 00:30 Temperature Pulse Rate 74 Respiratory Rate 12 Blood Pressure 114/61 115/60 Pulse Oximetry 100 100 96 Oxygen Delivery 04/07/25 00:31 04/07/25 00:46 04/07/25 01:00 Temperature Pulse Rate 76 Respiratory Rate 16 Blood Pressure 118/60 Pulse Oximetry 100 100 98 Oxygen Delivery 04/07/25 01:15 04/07/25 01:30 04/07/25 01:31 Temperature Pulse Rate 74 71 72 Respiratory Rate 20 13 16 Blood Pressure 119/63 117/61 Pulse Oximetry 100 100 100 Oxygen Delivery 04/07/25 01:45 04/07/25 01:46 04/07/25 02:00 Temperature Pulse Rate 74 76 Respiratory Rate 16 19 Blood Pressure 133/67 124/64 Pulse Oximetry 100 100 100 Oxygen Delivery 04/07/25 02:01 04/07/25 02:15 04/07/25 02:16 Temperature Pulse Rate Respiratory Rate Blood Pressure 126/62 Pulse Oximetry 100 100 100 Oxygen Delivery 04/07/25 02:45 04/07/25 02:46 04/07/25 03:00 Temperature Pulse Rate Respiratory Rate Blood Pressure 121/65 126/63 Pulse Oximetry 100 100 100 Oxygen Delivery 04/07/25 03:15 04/07/25 03:16 04/07/25 03:30 Temperature Pulse Rate Respiratory Rate Blood Pressure 125/59 L 122/51 L Pulse Oximetry 100 100 100 Oxygen Delivery 04/07/25 03:31 04/07/25 05:39 Temperature 97.8 F Pulse Rate 88 Respiratory Rate 14 Blood Pressure 134/60 Pulse Oximetry 100 100 Oxygen Delivery Exam Narrative: General: NAD Eyes: EOMI ENT: neck supple Cardiovascular: Regular rate and rhythm Respiratory: Clear to auscultation, respirations even and unlabored on RA Gastrointestinal: Soft, non tender Genitourinary: no suprapubic tenderness Musculoskeletal: No edema Skin: warm, dry Neuro: Alert and oriented x4. Cranial nerves II-XII intact. Face symmetric. Speech clear. Strength 5/5 in BUEs/BLEs. Sensation to light touch intact BUE/BLEs. No dysmetria BUE/BLEs. Psych: Mood appropriate H&P: Results Labs Labs: Short CBC 04/06/25 04/07/25 Range/Units 20:23 06:32 WBC 3.5 L 2.6 L (4.5-10.0) K/mm3 Hgb 8.0 L D 7.5 L (14.0-18.0) g/dL Hct 25.3 L 24.7 L (42.0-52.0) % Plt Count 124 L 112 L (150-375) k/mm3 BMP 04/06/25 20:23 Sodium 136 L Potassium 3.6 Chloride 104 Carbon Dioxide 20 L BUN 17 Creatinine 1.18 Glucose 103 Calcium 10.3 H Cardiac Enzymes 04/06/25 Range/Units 20:23 Troponin I < 0.012 (0.000-0.034) ng/mL Liver Function 04/06/25 Range/Units 20:23 Total Bilirubin 0.8 (0.2-1.3) mg/dL AST 30 (17-59) U/L ALT 28 (6-50) U/L Alkaline Phosphatase 51 (38-126) U/L Albumin 4.4 (3.5-5.1) g/dL Urine 04/06/25 Range/Units 23:02 Urine Color Yellow (Yellow) Urine Appearance Clear (Clear) Urine pH 5.5 (5.0-9.0) Ur Specific [place] 1.010 (1.001-1.035) Urine Protein Negative (Negative) mg/dL Urine Glucose (UA) Negative (Negative) mg/dL Assessment and Plan Assessment and plan (1) Pancytopenia: Code(s): D61.818 - Other pancytopenia Status: Acute Assessment and Plan: - WBC 2.6, Hgb 7.5, Plt 112, MCV 109 - denied signs of bleeding. Denied history of cirrhosis or significant alcohol use. Reports history of normal colonoscopy and EGD. - Leading diagnosis is multiple myeloma given lytic lesions noted on CTA - holding aspirin for now - oncology consulted - iron studies, occutl stool, SPEP/UPEP ordered (2) Lytic bone lesions on xray: Code(s): M89.8X9 - Other specified disorders of bone, unspecified site Status: Acute Assessment and Plan: - diffuse lytic lesions noted on imaging - anemia noted as above - calcium 10.3, Cr 0.99 - concern for multiple myeloma - checking SPEP/UPEP - oncology consulted, appreciate recs (3) Falls frequently: Code(s): R29.6 - Repeated falls Status: Acute Assessment and Plan: - reports occasional balance difficulty starting about 6 months ago. Otherwise, patient is able to ambulate independently. Also having memory issues and following with [facility]. Patient reports recent PET scan and MRI brain as part of a research study. Records requested. - NIH 0 with no focal deficits this AM. - apparently family in ER reported staring spells. Patient denies this. - follow-up echo - neurology consulted, appreciate recs. Patient reported recent MRI brain at [facility] (?) attempting to obtain records. May benefit from repeat MRI pending neuro recs. - PT/OT consulted Plan DVT prophylaxis: ambulation Code status: full code Disposition: discharge home in 1-2 days pending oncology and neurology recs Quality If No VTE Prophylaxis Answer both mechanical and pharmacologic: Reason no mechanical VTE proph: low risk/not indicated (patient ambulatory ) and medical contraindication (pancytopenia) Hospitalist MIPS Advance Care Plan I have confirmed that the patient's Advanced Care Plan is present, code status is documented, or surrogate decision maker is listed in patient medical record.: Yes Medication Reconciliation I have utilized all available resources to obtain, update and review the patients current medications (includes all prescriptions, OTC, herbals, cannabis, and nutritional supplements).: Yes The patient is not eligible for med reconciliation; the patient is in a emergent medical situation where delaying treatment would jeopardize the patients health.: No
[2025-04-07 07:12] LABS: Anion Gap 11 mmol/L (4-12); Blood Urea Nitrogen 16 mg/dL (9-20); Calcium 10.2 mg/dL (8.4-10.2); Carbon Dioxide 18 mmol/L (22-30); Chloride 109 mmol/L (98-107); Estimated CRCL calculation 64 ml/min; Estimated Glomerular Filt Rate > 60; Glucose 92 mg/dL (65-110); Magnesium 2.1 mg/dL (1.6-2.3); Potassium 4.1 mmol/L (3.4-5.0); Sodium 138 mmol/L (137-145)
[2025-04-07 08:17] LABS: Vitamin B12 241.0 pg/mL (239-931)
[2025-04-07] MEDS: PERFLUTREN LIPID MICROSPHERES 1.5 ML VIAL DILUTED TO 10 ML TOTAL VOLUME IV PUSH (11:20)
--- NOTE | 2025-04-07 11:34 | IVDEFINITY ---
Prior to administration of IV Definity the patient was educated on the risks and benefits of the imaging enhancing agent including potential adverse side effects. The patient verbalized understanding. Allergies were verified. No exclusion criteria were identified and at least one of the following inclusion criteria were met: 1) physician request, 2) patient technically difficult to image (per the [place] [employer]chocardi[employer] guidelines of two or more segments not discernable within the apical view), or 3) questionable left ventricular function. ?
--- NOTE | 2025-04-07 12:46 | P.CONNEU_ITS ---
Assessment and Plan Assessment and plan (1) Falls frequently: Code(s): R29.6 - Repeated falls Status: Acute (2) Myelopathy: Code(s): G95.9 - Disease of spinal cord, unspecified Status: Acute (3) TIA (transient ischemic attack): Code(s): G45.9 - Transient cerebral ischemic attack, unspecified Status: Acute Plan 1. Episodic weakness with history of cardiac surgery during infancy rule out the possibility of recurrent TIA, even though the CTA is normal he will benefit from echocardiogram for further delineation, 2. Rule out the possibility of spinal cord involvement we need the MRI of the cervical and thoracic spine, and if necessary EMG nerve conduction study as an outpatient. 3. He is being continued on allopurinol and aspirin at present. Will come back and talk to him. Consult date: 04/07/25 HPI: Ramon Mendoza is a 65 year old male Admitted to the hospital through the emergency room for the complaints of increasing weakness with specific complaints of legs giving out on him in addition to the history of blank stares, slurred speech somewhat progressive over the last several days. Family was concerned because patient has had the cardiac surgery in the past during his infancy and has had abnormal EKGs. Additionally he was reportedly more unsteady with his gait and has had multiple falls over the last several weeks patient has been followed by the neurology service at [facility]. He is not allergic to any medications, and is taking allopurinol 100mg daily. As mentioned before he carries the history of tetralogy of Fallot and gout In addition to having had open heart surgery but additionally he has had spinal surgery as well. He has history of smoking 2 packs per day 1, his smoking cigarettes per day 20, though at present is a former smoker, and currently drinks only 1 drink per week. On initial exam in the emergency room he was documented to be without any neurological deficit. His vital signs were normal, considering the possibility of the stroke versus infection he was hospitalized, x-ray of the chest documented cardiomegaly, ekg documented right bundle branch block but no atrial fibrillation, his troponin were negative, CBC was abnormal with hemoglobin 8.0 ,platelet count 124, and WBC 3.5, his lactic acid was 2.1, but otherwise master scan was normal, UA was normal, initial CT scan of the head in the ER was normal with no evidence of bleed or ventriculomegaly, head and neck CTA documented 13% stenosis of proximal right internal carotid artery and widespread lytic lesions of bone consistent with multiple myeloma versus metastatic Disease. Review of Systems 2 Review of Systems: All systems reviewed & are unremarkable except as noted in HPI and below PMFSH Past Medical History Medical History Tetralogy of Fallot Gout Surgical History Surgical History History of open heart surgery Noa-Taussig shunt and subsequent Tetralogy of Fallot repair. History of spinal surgery Family History Family History Other No pertinent family history Social History Social History Social History: Surrogate decision maker: Cindy Mendoza, . Code status: Full code. Smoking packs per day: 1 Smoking cigarettes per day: 20.0 Smoking status: Former smoker Tobacco type: cigarettes Additional smoking assessment comments: stopped smoking ay 38yrs old Alcohol intake: former Drinks per week: 1 Substance use: never Lack of Transportation: No Lack of Food: Never True Current Housing: I Have Housing Concerned About Future Housing: No Difficulty Paying Gas/Electric Bills: No Difficulty Paying for Meds: No Currently Unemployed: No Education: Bachelor's Degree Difficulty w/ Childcare or Family Care: No Additional living arrangements comments: The patient lives in [place] 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 Gender identity (if verbalized by the patient): Male Spiritual care concerns: No Meds Home Medications and Allergies Home Medications ?Medication ?Instructions ?Recorded ?Confirmed ?Type aspirin 81 mg tablet,delayed 81 mg PO DAILY 04/07/25 0 04/07/25 History release (Adult Low Dose Aspirin) Allergies Allergy/AdvReac Type Severity Reaction Status Date / Time No Known Allergies Allergy Verified 04/06/25 18:57 Vital Signs Vital Signs - 24 hr 04/06/25 18:51 04/06/25 20:24 04/06/25 20:26 Temperature 36.9 C Pulse Rate 98 90 92 Respiratory Rate 14 13 22 H Blood Pressure 140/55 L 104/56 L Pulse Oximetry 100 99 99 Oxygen Delivery Room Air 04/06/25 20:30 04/06/25 20:31 04/06/25 20:53 Temperature Pulse Rate 86 86 88 Respiratory Rate 18 18 27 H Blood Pressure 90/77 L 91/69 L Pulse Oximetry 98 99 98 Oxygen Delivery 04/06/25 21:00 04/06/25 21:15 04/06/25 21:30 Temperature Pulse Rate 86 88 Respiratory Rate 20 19 Blood Pressure 80/66 L 90/66 L Pulse Oximetry 98 97 Oxygen Delivery 04/06/25 22:30 04/06/25 23:05 04/06/25 23:06 Temperature Pulse Rate 79 84 82 Respiratory Rate 18 20 24 H Blood Pressure 131/57 L Pulse Oximetry 98 100 100 Oxygen Delivery 04/06/25 23:30 04/06/25 23:31 04/06/25 23:45 Temperature Pulse Rate 78 76 78 Respiratory Rate 17 19 18 Blood Pressure 108/57 L 109/57 L Pulse Oximetry 100 100 Oxygen Delivery 04/06/25 23:46 04/07/25 00:00 04/07/25 00:01 Temperature Pulse Rate Respiratory Rate Blood Pressure 116/63 Pulse Oximetry 98 100 94 Oxygen Delivery 04/07/25 00:15 04/07/25 00:16 04/07/25 00:30 Temperature Pulse Rate 74 Respiratory Rate 12 Blood Pressure 114/61 115/60 Pulse Oximetry 100 100 96 Oxygen Delivery 04/07/25 00:31 04/07/25 00:46 04/07/25 01:00 Temperature Pulse Rate 76 Respiratory Rate 16 Blood Pressure 118/60 Pulse Oximetry 100 100 98 Oxygen Delivery 04/07/25 01:15 04/07/25 01:30 04/07/25 01:31 Temperature Pulse Rate 74 71 72 Respiratory Rate 20 13 16 Blood Pressure 119/63 117/61 Pulse Oximetry 100 100 100 Oxygen Delivery 04/07/25 01:45 04/07/25 01:46 04/07/25 02:00 Temperature Pulse Rate 74 76 Respiratory Rate 16 19 Blood Pressure 133/67 124/64 Pulse Oximetry 100 100 100 Oxygen Delivery 04/07/25 02:01 04/07/25 02:15 04/07/25 02:16 Temperature Pulse Rate Respiratory Rate Blood Pressure 126/62 Pulse Oximetry 100 100 100 Oxygen Delivery 04/07/25 02:45 04/07/25 02:46 04/07/25 03:00 Temperature Pulse Rate Respiratory Rate Blood Pressure 121/65 126/63 Pulse Oximetry 100 100 100 Oxygen Delivery 04/07/25 03:15 04/07/25 03:16 04/07/25 03:30 Temperature Pulse Rate Respiratory Rate Blood Pressure 125/59 L 122/51 L Pulse Oximetry 100 100 100 Oxygen Delivery 04/07/25 03:31 04/07/25 05:39 04/07/25 11:34 Temperature 36.6 C Pulse Rate 88 Respiratory Rate 14 Blood Pressure 134/60 Pulse Oximetry 100 100 Oxygen Delivery Room Air 04/07/25 11:45 Temperature Pulse Rate Respiratory Rate Blood Pressure Pulse Oximetry Oxygen Delivery Room Air Exam 2 Narrative: Examination today revealed him to be awake alert cooperative in no obvious acute distress, head normocephalic with no cranial bruits, ear nose throat examination normal, neck supple with cardiac murmur, lungs clear to auscultation with no rhonchi or crepitations, abdomen soft no organomegaly, neurologically he was awake alert oriented, his speech was not dysphasic not dysarthric not dysphonic, pupils were round regular reacting to light equally, greene of the vision were full in all 4 quadrants, extraocular movements were full with no nystagmus, facial sensation intact, face symmetrical, tongue midline with no fasciculation, uvula in the midline, motor examination revealed him to have normal strength and tone reflexes were symmetric and plantars were downgoing There was no evidence of ataxia or dysmetria on [id number]-finger. Results Labs 04/07/25 06:32 04/07/25 06:32 Labs: Short CBC 04/06/25 04/07/25 Range/Units 20:23 06:32 WBC 3.5 L 2.6 L (4.5-10.0) K/mm3 Hgb 8.0 L D 7.5 L (14.0-18.0) g/dL Hct 25.3 L 24.7 L (42.0-52.0) % Plt Count 124 L 112 L (150-375) k/mm3 BMP 04/06/25 04/07/25 20:23 06:32 Sodium 136 L 138 Potassium 3.6 4.1 Chloride 104 109 H Carbon Dioxide 20 L 18 L BUN 17 16 Creatinine 1.18 0.99 Glucose 103 92 Calcium 10.3 H 10.2 Cardiac Enzymes 04/06/25 Range/Units 20:23 Troponin I < 0.012 (0.000-0.034) ng/mL Liver Function 04/06/25 Range/Units 20:23 Total Bilirubin 0.8 (0.2-1.3) mg/dL AST 30 (17-59) U/L ALT 28 (6-50) U/L Alkaline Phosphatase 51 (38-126) U/L Albumin 4.4 (3.5-5.1) g/dL Urine 04/06/25 Range/Units 23:02 Urine Color Yellow (Yellow) Urine Appearance Clear (Clear) Urine pH 5.5 (5.0-9.0) Ur Specific [place] 1.010 (1.001-1.035) Urine Protein Negative (Negative) mg/dL Urine Glucose (UA) Negative (Negative) mg/dL
[2025-04-07 16:03] LABS: Iron 83 ug/dL (49-181)
[2025-04-07 16:13] LABS: Percent Iron Saturation 22 % (20-50)
[2025-04-07 16:40] LABS: Ferritin 241.00 ng/mL (11.1-264)
--- NOTE | 2025-04-07 18:43 | P.CONONC_ITS ---
Assessment and Plan Assessment and plan (1) Lytic bone lesions on xray: Code(s): M89.8X9 - Other specified disorders of bone, unspecified site Status: Acute Assessment and Plan: This is a pleasant 65-year-old male recently retired who has a history of gout and recent cognitive decline with dementia. Currently been getting workup done for dementia at [facility] came into the hospital with fall. He has been falling frequently recently. He denies any bone pain and neuropathy. Denies any weight loss. CTA head showed widespread lytic bone lesions consistent with myeloma versus metastatic disease. Other labs showed leukopenia and anemia. Creatinine and calcium was normal. These findings are quite worrisome for multiple myeloma. I will order bone marrow aspiration and biopsy. Serum protein electrophoresis has been ordered. I will add immunofixation studies, quantitative immunoglobulin and serum free light chain studies. I will also order a skeletal survey. I will also order iron studies due to anemia. PET scan will be done as an outpatient. I will give him 1000 mcg B12 injection today. I have answered all the questions the patient and the satisfaction. HPI Data of Consult Date/Time: 04/07/25 18:43 Requesting Physician: Gayle Martinez MD Primary Care Provider: SHANNON,BRIDGETTE Gonzalez M.D. Consult Narrative Narrative: Ramon Mendoza is a 65 year old male with history of gout and some cognitive impairment for which she has been under evaluation at [facility]. He came into the hospital status post fall and some slurred speech. According to the he has been falling quite frequently in last several months. He was recently retired as well. CT head showed no acute intracranial process. Labs showed WBC of 2.6 with hemoglobin of 7.5. CTA head and neck showed widespread lytic bone lesions consistent with multiple myeloma versus metastatic disease. Other labs showed normal creatinine of 0.9 and calcium of 10.2. B12 was low at 241. He denies any previous history of malignancy. Review of Systems 2 Review of Systems: Twelve point review of system was reviewed [facility] Past Medical History Medical History Tetralogy of Fallot Gout Surgical History Surgical History History of open heart surgery Noa-Taussig shunt and subsequent Tetralogy of Fallot repair. History of spinal surgery Family History Family History Other No pertinent family history Social History Social History Social History: Surrogate decision maker: Cindy Mendoza, . Code status: Full code. Smoking packs per day: 1 Smoking cigarettes per day: 20.0 Smoking status: Former smoker Tobacco type: cigarettes Additional smoking assessment comments: stopped smoking ay 38yrs old Alcohol intake: former Drinks per week: 1 Substance use: never Lack of Transportation: No Lack of Food: Never True Current Housing: I Have Housing Concerned About Future Housing: No Difficulty Paying Gas/Electric Bills: No Difficulty Paying for Meds: No Currently Unemployed: No Education: Bachelor's Degree Difficulty w/ Childcare or Family Care: No Additional living arrangements comments: The patient lives in [place] Additional occupation/education comments: [employer] Gender identity (if verbalized by the patient): Male Spiritual care concerns: No Meds Home Medications and Allergies Home Medications ?Medication ?Instructions ?Recorded ?Confirmed ?Type aspirin 81 mg tablet,delayed 81 mg PO DAILY 04/07/25 0 04/07/25 History release (Adult Low Dose Aspirin) Allergies Allergy/AdvReac Type Severity Reaction Status Date / Time No Known Allergies Allergy Verified 04/06/25 18:57 Vital Signs Vital Signs - 24 hr 04/06/25 18:51 04/06/25 20:24 04/06/25 20:26 Temperature 36.9 C Pulse Rate 98 90 92 Respiratory Rate 14 13 22 H Blood Pressure 140/55 L 104/56 L Pulse Oximetry 100 99 99 Oxygen Delivery Room Air 04/06/25 20:30 04/06/25 20:31 04/06/25 20:53 Temperature Pulse Rate 86 86 88 Respiratory Rate 18 18 27 H Blood Pressure 90/77 L 91/69 L Pulse Oximetry 98 99 98 Oxygen Delivery 04/06/25 21:00 04/06/25 21:15 04/06/25 21:30 Temperature Pulse Rate 86 88 Respiratory Rate 20 19 Blood Pressure 80/66 L 90/66 L Pulse Oximetry 98 97 Oxygen Delivery 04/06/25 22:30 04/06/25 23:05 04/06/25 23:06 Temperature Pulse Rate 79 84 82 Respiratory Rate 18 20 24 H Blood Pressure 131/57 L Pulse Oximetry 98 100 100 Oxygen Delivery 04/06/25 23:30 04/06/25 23:31 04/06/25 23:45 Temperature Pulse Rate 78 76 78 Respiratory Rate 17 19 18 Blood Pressure 108/57 L 109/57 L Pulse Oximetry 100 100 Oxygen Delivery 04/06/25 23:46 04/07/25 00:00 04/07/25 00:01 Temperature Pulse Rate Respiratory Rate Blood Pressure 116/63 Pulse Oximetry 98 100 94 Oxygen Delivery 04/07/25 00:15 04/07/25 00:16 04/07/25 00:30 Temperature Pulse Rate 74 Respiratory Rate 12 Blood Pressure 114/61 115/60 Pulse Oximetry 100 100 96 Oxygen Delivery 04/07/25 00:31 04/07/25 00:46 04/07/25 01:00 Temperature Pulse Rate 76 Respiratory Rate 16 Blood Pressure 118/60 Pulse Oximetry 100 100 98 Oxygen Delivery 04/07/25 01:15 04/07/25 01:30 04/07/25 01:31 Temperature Pulse Rate 74 71 72 Respiratory Rate 20 13 16 Blood Pressure 119/63 117/61 Pulse Oximetry 100 100 100 Oxygen Delivery 04/07/25 01:45 04/07/25 01:46 04/07/25 02:00 Temperature Pulse Rate 74 76 Respiratory Rate 16 19 Blood Pressure 133/67 124/64 Pulse Oximetry 100 100 100 Oxygen Delivery 04/07/25 02:01 04/07/25 02:15 04/07/25 02:16 Temperature Pulse Rate Respiratory Rate Blood Pressure 126/62 Pulse Oximetry 100 100 100 Oxygen Delivery 04/07/25 02:45 04/07/25 02:46 04/07/25 03:00 Temperature Pulse Rate Respiratory Rate Blood Pressure 121/65 126/63 Pulse Oximetry 100 100 100 Oxygen Delivery 04/07/25 03:15 04/07/25 03:16 04/07/25 03:30 Temperature Pulse Rate Respiratory Rate Blood Pressure 125/59 L 122/51 L Pulse Oximetry 100 100 100 Oxygen Delivery 04/07/25 03:31 04/07/25 05:39 04/07/25 08:45 Temperature 36.6 C Pulse Rate 88 Respiratory Rate 14 Blood Pressure 134/60 Pulse Oximetry 100 100 Oxygen Delivery Room Air 04/07/25 11:34 04/07/25 11:45 04/07/25 13:51 Temperature 35.6 C L Pulse Rate 81 Respiratory Rate 16 Blood Pressure 134/54 L Pulse Oximetry 100 Oxygen Delivery Room Air Room Air Exam 2 Narrative: Lungs are clear to auscultation bilaterally Cardiovascular regular rate rhythm no murmurs Abdomen soft nontender nondistended Extremities no edema Results Labs 04/07/25 06:32 04/07/25 06:32 Labs: Short CBC 04/06/25 04/07/25 Range/Units 20:23 06:32 WBC 3.5 L 2.6 L (4.5-10.0) K/mm3 Hgb 8.0 L D 7.5 L (14.0-18.0) g/dL Hct 25.3 L 24.7 L (42.0-52.0) % Plt Count 124 L 112 L (150-375) k/mm3 BMP 04/06/25 04/07/25 20:23 06:32 Sodium 136 L 138 Potassium 3.6 4.1 Chloride 104 109 H Carbon Dioxide 20 L 18 L BUN 17 16 Creatinine 1.18 0.99 Glucose 103 92 Calcium 10.3 H 10.2 Cardiac Enzymes 04/06/25 Range/Units 20:23 Troponin I < 0.012 (0.000-0.034) ng/mL Liver Function 04/06/25 Range/Units 20:23 Total Bilirubin 0.8 (0.2-1.3) mg/dL AST 30 (17-59) U/L ALT 28 (6-50) U/L Alkaline Phosphatase 51 (38-126) U/L Albumin 4.4 (3.5-5.1) g/dL Urine 04/06/25 Range/Units 23:02 Urine Color Yellow (Yellow) Urine Appearance Clear (Clear) Urine pH 5.5 (5.0-9.0) Ur Specific [place] 1.010 (1.001-1.035) Urine Protein Negative (Negative) mg/dL Urine Glucose (UA) Negative (Negative) mg/dL
[2025-04-08 05:06] VITALS: BP 100/43; PULSE 78; RESP 16; TEMP 36.4; O2SAT 100
[2025-04-08 06:51] LABS: Hematocrit 23.6 % (42.0-52.0); Hemoglobin 7.4 g/dL (14.0-18.0); Immature Granulocyte Percent A 1.3 % (0-0.5); Lymphocytes Absolute Auto 0.88 K/mm3 (0.9-3.2); Mean Corpuscular HGB Conc 31.4 g/dl (32-36); Mean Corpuscular Hemoglobin 33.9 pg (26-34); Mean Corpuscular Volume 108.3 fl (80-100); Nucleated Red Blood Cells Absolute Auto 0.000 K/mm3 (0.0-0.012); Nucleated Red Blood Cells Perc 0.0 % (0.0-0.2); Platelet Count Result 102 k/mm3 (150-375); Red Blood Count 2.18 M/mm3 (4.6-6.20); White Blood Count 2.3 K/mm3 (4.5-10.0)
[2025-04-08 07:07] LABS: Iron 58 ug/dL (49-181)
[2025-04-08 07:13] LABS: Alanine Aminotransferase 23 U/L (6-50); Albumin Level 3.7 g/dL (3.5-5.1); Alkaline Phosphatase 49 U/L (38-126); Anion Gap 7 mmol/L (4-12); Aspartate Amino Transferase 27 U/L (17-59); Bilirubin,Total 0.9 mg/dL (0.2-1.3); Blood Urea Nitrogen 15 mg/dL (9-20); Calcium 11.0 mg/dL (8.4-10.2); Carbon Dioxide 22 mmol/L (22-30); Chloride 108 mmol/L (98-107); Estimated CRCL calculation 57 ml/min; Estimated Glomerular Filt Rate > 60; Glucose 98 mg/dL (65-110); Potassium 4.0 mmol/L (3.4-5.0); Sodium 137 mmol/L (137-145); Total Protein 7.0 g/dL (6.3-8.2)
[2025-04-08 07:18] LABS: Percent Iron Saturation 18 % (20-50)
[2025-04-08 07:29] LABS: Immunoglobulin G 1648 mg/dL (700-1600)
[2025-04-08 07:33] LABS: Immunoglobulin A < 40 mg/dL (70-400); Immunoglobulin M < 25 mg/dL (40-230)
[2025-04-08 07:48] LABS: Ferritin 218.00 ng/mL (11.1-264)
[2025-04-08 07:51] LABS: Anisocytosis 1+; Hypochromasia 1+; Tear Drop Cells Occasional
--- NOTE | 2025-04-08 07:51 | P.PNIM_ITS ---
Progress Note: A&P Assessment and Plan (1) Pancytopenia: Code(s): D61.818 - Other pancytopenia Status: Acute Assessment and Plan: * WBC 2.6, Hgb 7.5, Plt 112, MCV 109 * Denied signs of bleeding. Denied history of cirrhosis or significant alcohol use. Reports history of normal colonoscopy and EGD. * Leading diagnosis is multiple myeloma given lytic lesions noted on CTA * Holding aspirin for now * Oncology consulted * Iron studies, occutl stool, SPEP/UPEP ordered * 18% saturation, otherwise iron studies WNL * SPEP/ UPEP pending (2) Lytic bone lesions on xray: Code(s): M89.8X9 - Other specified disorders of bone, unspecified site Status: Acute Assessment and Plan: * Diffuse lytic lesions noted on imaging * Anemia noted as above * Calcium 10.3, Cr 0.99 * Concern for multiple myeloma * Checking SPEP/UPEP * Oncology consulted, appreciate recs * Bone biopsy scheduled for tomorrow at 9:00 a.m. * PET scan as outpatient (3) Falls frequently: Code(s): R29.6 - Repeated falls Status: Acute Assessment and Plan: * Reports occasional balance difficulty starting about 6 months ago. Otherwise, patient is able to ambulate independently. Also having memory issues and following with [facility]. Patient reports recent PET scan and MRI brain as part of a research study. Records requested. * NIH 0 with no focal deficits this AM. * Apparently family in ER reported staring spells. Patient denies this. * Follow-up echo * Neurology consulted, appreciate recs. Patient reported recent MRI brain at [facility] (?) attempting to obtain records. May benefit from Repeat MRI pending neuro recs. * MRI of the cervical/thoracic spine to rule out spinal cord involvement * Echocardiogram * EMG nerve conduction study as outpatient * PT/OT consulted Plan DVT prophylaxis: ambulation Code status: full code Disposition: discharge home in 1-2 days pending oncology and neurology recs Subjective Date/time seen: 04/08/25 07:51 Interval history: 65-year-old male with past medical history of gout, tetralogy of Fallot s/p cardiac surgery as a child, who presents with frequent falls who presented with falls, possible slurred speech/staring episode per ER note. Patient is alert and oriented x4. 04/08/2025 Patient sitting comfortably in bed at time of examination. Denies any chest pain, shortness off breath, nausea/ vomiting. Cervical/thoracic spine MRI obtained, concerning for multiple myeloma/metastatic disease. Plan for bone biopsy tomorrow per Oncology. Likely can be discharged once biopsies obtained. Patient has no other concerns at this time. Review of Systems Review of Systems: All systems reviewed & are unremarkable except as noted in HPI and below Exam Narrative: General: NAD Eyes: EOMI ENT: neck supple Cardiovascular: Regular rate and rhythm Respiratory: Clear to auscultation, respirations even and unlabored on RA Gastrointestinal: Soft, non tender Genitourinary: no suprapubic tenderness Musculoskeletal: No edema Skin: warm, dry Neuro: Alert and oriented x4. Cranial nerves II-XII intact. Face symmetric. Speech clear. Strength 5/5 in BUEs/BLEs. Sensation to light touch intact BUE/BLEs. No dysmetria BUE/BLEs. Psych: Mood appropriate Objective Data Vital Signs Vital Signs: Vital Signs - 24 hr 04/07/25 08:45 04/07/25 11:34 04/07/25 11:45 Temperature Pulse Rate Respiratory Rate Blood Pressure Pulse Oximetry Oxygen Delivery Room Air Room Air Room Air 04/07/25 13:51 04/07/25 20:00 04/07/25 21:18 Temperature 96.1 F L 98.2 F Pulse Rate 81 79 79 Respiratory Rate 16 16 16 Blood Pressure 134/54 L 104/55 L Pulse Oximetry 100 100 100 Oxygen Delivery Room Air 04/08/25 05:06 Temperature 97.5 F L Pulse Rate 78 Respiratory Rate 16 Blood Pressure 100/43 L Pulse Oximetry 100 Oxygen Delivery Intake/Output Intake/Output: Intake & Output 04/05/25 04/06/25 04/07/25 04/08/25 23:59 23:59 23:59 23:59 Intake Total 1999 820 Balance 1999 820 Meds/Results Medications: Active Medications Generic Name Dose Route Start Last Admin Trade Name Freq PRN Reason Stop Dose Admin Aspirin 81 mg 04/07/25 06:10 04/07/25 06:30 Aspirin 81 Mg Enteric Tablet PO 81 mg On Hold: 04/07/25 12:42 QAM MARK Administration Neomycin/Polymyxin/Bacitracin 1 applic 04/07/25 18:47 Neomycin/Polymyxin/Bacitracin Ointment 15 Gm Tube TOPICAL PRN PRN with dressing changes Radiology Results: ITS Impressions Head CT 04/06/25 19:19 IMPRESSION: 1. No acute intracranial abnormality. Chest X-Ray 04/06/25 21:16 Impression: 1: Cardiomegaly with mild interstitial edema. Head/Neck CTA 04/07/25 08:09 IMPRESSION: 1. Normal aging brain. 2. No aneurysm or significant intracranial arterial stenosis. 3. 13% stenosis of the proximal right internal carotid artery relative to normal distal artery lumen diameter (NASCET criteria). 4. 0% stenosis of the proximal left internal carotid artery relative to normal distal artery lumen diameter. 5. Widespread lytic lesions of bone, consistent with multiple myeloma versus metastatic disease. ADDENDUM: 04/07/25 0824 I discussed the bone findings with Maddie Borges. Skeletal Survey 04/07/25 20:01 Impression: 1: Innumerable lytic defects throughout the visualized osseous structures, comp atible with widespread multiple myeloma. Labs Labs: Laboratory Results - last 24 hr 04/06/25 04/07/25 04/07/25 20:23 06:32 11:47 WBC RBC Hgb Hct MCV MCH MCHC RDW Plt Count MPV Immature Gran % (Auto) Neut % (Auto) Lymph % (Auto) [place] % (Auto) Eos % (Auto) Baso % (Auto) Lymph # (Auto) [place] # (Auto) Eos # (Auto) Baso # (Auto) Abs Immat Gran (auto) Absolute Neuts (auto) Absolute Nucleated RBC Nucleated RBC % Sodium Potassium Chloride Carbon Dioxide Anion Gap BUN Creatinine Estim Creat Clear Calc Estimated GFR Glucose POC Capillary Glucose 94 Calcium Iron 83 TIBC 380 % Saturation 22 Ferritin 241.00 Total Bilirubin AST ALT Alkaline Phosphatase Total Protein Albumin Vitamin B12 241.0 Folate 5.4 IgG IgA IgM 04/07/25 04/08/25 04/08/25 16:16 05:57 05:58 WBC 2.3 L RBC 2.18 L Hgb 7.4 L Hct 23.6 L MCV 108.3 H MCH 33.9 MCHC 31.4 L RDW 15.3 H Plt Count 102 L MPV 9.0 Immature Gran % (Auto) 1.3 H Neut % (Auto) 50.0 Lymph % (Auto) 38.3 [place] % (Auto) 8.7 H Eos % (Auto) 1.3 Baso % (Auto) 0.4 Lymph # (Auto) 0.88 L [place] # (Auto) 0.2 Eos # (Auto) 0.0 Baso # (Auto) 0.0 Abs Immat Gran (auto) 0.03 Absolute Neuts (auto) 1.2 L Absolute Nucleated RBC 0.000 Nucleated RBC % 0.0 Sodium 137 Potassium 4.0 Chloride 108 H Carbon Dioxide 22 Anion Gap 7 BUN 15 Creatinine 1.11 Estim Creat Clear Calc 57 Estimated GFR > 60 Glucose 98 POC Capillary Glucose 99 Calcium 11.0 H Iron 58 TIBC 327 % Saturation 18 L Ferritin 218.00 Total Bilirubin 0.9 AST 27 ALT 23 Alkaline Phosphatase 49 Total Protein 7.0 Albumin 3.7 Vitamin B12 Folate IgG 1648 H IgA < 40 L IgM < 25 L Quality VTE Prophylaxis VTE prophylaxis: mechanical ordered
[2025-04-08 07:52] LABS: Ovalocytes Occasional; Schistocytes None Seen
[2025-04-08 09:15] VITALS: PULSE 71; O2SAT 99
[2025-04-08 12:09] LABS: INR 1.0; Prothrombin Time 13.6 Seconds (11.1-14.7)
[2025-04-08 14:00] VITALS: BP 147/53; PULSE 84; RESP 16; TEMP 36.2; O2SAT 100
--- NOTE | 2025-04-08 15:34 | WPDNEUROPN ---
Subjective Date/time seen: 04/08/25 15:34 Interval history: Discussed with him the diagnosis of multiple myeloma, he will benefit from the EMG and nerve conduction study as an outpatient advised and inform the nurse to order the test as an outpatient rest of the exam remains unchanged. Objective Data Vital Signs Vital Signs: Vital Signs - 24 hr 04/07/25 20:00 04/07/25 21:18 04/08/25 05:06 Temperature 36.8 C 36.4 C L Pulse Rate 79 79 78 Respiratory Rate 16 16 16 Blood Pressure 104/55 L 100/43 L Pulse Oximetry 100 100 100 Oxygen Delivery Room Air 04/08/25 09:15 04/08/25 14:00 Temperature 36.2 C L Pulse Rate 71 84 Respiratory Rate 16 Blood Pressure 147/53 H Pulse Oximetry 99 100 Oxygen Delivery Room Air Intake/Output Intake/Output: Intake & Output 04/05/25 04/06/25 04/07/25 04/08/25 23:59 23:59 23:59 23:59 Intake Total 1999 820 240 Balance 1999 820 240 Meds/Results Medications: Active Medications Generic Name Dose Route Start Last Admin Trade Name Freq PRN Reason Stop Dose Admin Aspirin 81 mg 04/07/25 06:10 04/07/25 06:30 Aspirin 81 Mg Enteric Tablet PO 81 mg On Hold: 04/07/25 12:42 QAM MARK Administration Neomycin/Polymyxin/Bacitracin 1 applic 04/07/25 18:47 Neomycin/Polymyxin/Bacitracin Ointment 15 Gm Tube TOPICAL PRN PRN with dressing changes Radiology Results: ITS Impressions Head CT 04/06/25 19:19 IMPRESSION: 1. No acute intracranial abnormality. Chest X-Ray 04/06/25 21:16 Impression: 1: Cardiomegaly with mild interstitial edema. Head/Neck CTA 04/07/25 08:09 IMPRESSION: 1. Normal aging brain. 2. No aneurysm or significant intracranial arterial stenosis. 3. 13% stenosis of the proximal right internal carotid artery relative to normal distal artery lumen diameter (NASCET criteria). 4. 0% stenosis of the proximal left internal carotid artery relative to normal distal artery lumen diameter. 5. Widespread lytic lesions of bone, consistent with multiple myeloma versus metastatic disease. ADDENDUM: 04/07/25823 I discussed the bone findings with Maddie Borges. Skeletal Survey 04/07/25 20:01 Impression: 1: Innumerable lytic defects throughout the visualized osseous structures, compatible with widespread multiple myeloma. Brain MRI 04/08/25 13:10 IMPRESSION: 1. Normal aging brain with mild scattered periventricular predominant calcific white matter T2 hyperintensity consistent with chronic small vessel ischemic disease. No acute intracranial process or abnormally enhancing brain lesions. 2. Multiple small enhancing calvarial lesions correspond to lytic lesions on prior CT and concerning for multiple myeloma or other metastatic disease. Cervical Spine MRI 04/08/25 13:38 IMPRESSION: 1. Widespread heterogeneous signal intensity in the bone marrow suspicious for multiple myeloma or metastatic disease. 2. Severe cervical spondylosis. Thoracic Spine MRI 04/08/25 13:47 IMPRESSION: 1. Widespread heterogeneous bone marrow signal intensity, consistent with multiple myeloma versus metastatic disease. 2. Moderate thoracic spondylosis. Labs Labs: Laboratory Results - last 24 hr 04/06/25 04/07/25 04/07/25 20:23 06:32 16:16 WBC RBC Hgb Hct MCV MCH MCHC RDW Plt Count MPV Immature Gran % (Auto) Neut % (Auto) Lymph % (Auto) [place] % (Auto) Eos % (Auto) Baso % (Auto) Lymph # (Auto) [place] # (Auto) Eos # (Auto) Baso # (Auto) Abs Immat Gran (auto) Absolute Neuts (auto) Absolute Nucleated RBC Band Neutrophils % Nucleated RBC % Platelet Estimate Hypochromasia Anisocytosis Tear Drop Cells Ovalocytes Schistocytes Haptoglobin 41 PT INR Sodium Potassium Chloride Carbon Dioxide Anion Gap BUN Creatinine Estim Creat Clear Calc Estimated GFR Glucose POC Capillary Glucose 99 Calcium Iron 83 TIBC 380 % Saturation 22 Ferritin 241.00 Total Bilirubin AST ALT Alkaline Phosphatase Total Protein Albumin IgG IgA IgM 04/08/25 04/08/25 04/08/25 05:57 05:58 11:35 WBC 2.3 L RBC 2.18 L Hgb 7.4 L Hct 23.6 L MCV 108.3 H MCH 33.9 MCHC 31.4 L RDW 15.3 H Plt Count 102 L MPV 9.0 Immature Gran % (Auto) 1.3 H Neut % (Auto) 50.0 Lymph % (Auto) 38.3 [place] % (Auto) 8.7 H Eos % (Auto) 1.3 Baso % (Auto) 0.4 Lymph # (Auto) 0.88 L [place] # (Auto) 0.2 Eos # (Auto) 0.0 Baso # (Auto) 0.0 Abs Immat Gran (auto) 0.03 Absolute Neuts (auto) 1.2 L Absolute Nucleated RBC 0.000 Band Neutrophils % Not Reportable Nucleated RBC % 0.0 Platelet Estimate Decreased Hypochromasia 1+ Anisocytosis 1+ Tear Drop Cells Occasional Ovalocytes Occasional Schistocytes None seen Haptoglobin PT 13.6 INR 1.0 Sodium 137 Potassium 4.0 Chloride 108 H Carbon Dioxide 22 Anion Gap 7 BUN 15 Creatinine 1.11 Estim Creat Clear Calc 57 Estimated GFR > 60 Glucose 98 POC Capillary Glucose Calcium 11.0 H Iron 58 TIBC 327 % Saturation 18 L Ferritin 218.00 Total Bilirubin 0.9 AST 27 ALT 23 Alkaline Phosphatase 49 Total Protein 7.0 Albumin 3.7 IgG 1648 H IgA < 40 L IgM < 25 L
[2025-04-08 21:32] VITALS: BP 129/63; PULSE 72; RESP 16; TEMP 36.7; O2SAT 98
[2025-04-09 05:56] VITALS: BP 127/67; PULSE 71; RESP 16; TEMP 36.6; O2SAT 100
[2025-04-09 08:07] LABS: Hematocrit 26.4 % (42.0-52.0); Hemoglobin 8.3 g/dL (14.0-18.0); Immature Granulocyte Percent A 1.5 % (0-0.5); Lymphocytes Absolute Auto 1.07 K/mm3 (0.9-3.2); Mean Corpuscular HGB Conc 31.4 g/dl (32-36); Mean Corpuscular Hemoglobin 33.6 pg (26-34); Mean Corpuscular Volume 106.9 fl (80-100); Nucleated Red Blood Cells Absolute Auto 0.020 K/mm3 (0.0-0.012); Nucleated Red Blood Cells Perc 0.7 % (0.0-0.2); Platelet Count Result 129 k/mm3 (150-375); Red Blood Count 2.47 M/mm3 (4.6-6.20); White Blood Count 2.7 K/mm3 (4.5-10.0)
[2025-04-09 08:27] LABS: Hypochromasia 1+; Macrocytosis 1+ (NORMAL); Schistocytes None Seen
[2025-04-09 08:30] LABS: Alanine Aminotransferase 24 U/L (6-50); Albumin Level 4.2 g/dL (3.5-5.1); Alkaline Phosphatase 51 U/L (38-126); Anion Gap 10 mmol/L (4-12); Aspartate Amino Transferase 28 U/L (17-59); Bilirubin,Total 0.9 mg/dL (0.2-1.3); Blood Urea Nitrogen 13 mg/dL (9-20); Calcium 11.4 mg/dL (8.4-10.2); Carbon Dioxide 23 mmol/L (22-30); Chloride 106 mmol/L (98-107); Estimated CRCL calculation 50 ml/min; Estimated Glomerular Filt Rate 56; Glucose 97 mg/dL (65-110); Potassium 3.9 mmol/L (3.4-5.0); Sodium 139 mmol/L (137-145); Total Protein 7.9 g/dL (6.3-8.2)
--- NOTE | 2025-04-09 09:08 | WPDMODSED ---
Moderate Sedation Note-Pt Data Patient Data Diagnosis: suspected multiple myeloma Present Complaint: multiple lytic bone lesions Procedure to be performed/Plan: bone marrow biospy Allergies Allergy/AdvReac Type Severity Reaction Status Date / Time No Known Allergies Allergy Verified 04/06/25 18:57 Home Medications ?Medication ?Instructions ?Recorded ?Confirmed ?Type aspirin 81 mg tablet,delayed 81 mg PO DAILY 04/07/25 04/07/25 History release (Adult Low Dose Aspirin) Current Medications: Active Medications Aspirin (Aspirin 81 Mg Enteric Tablet) 81 mg PO QAM MARK On Hold: 04/07/25 12:42 Last Admin: 04/07/25 06:30 Dose: 81 mg Neomycin/Polymyxin/Bacitracin (Neomycin/Polymyxin/Bacitracin Ointment 15 Gm Tube) 1 applic TOPICAL PRN PRN PRN Reason: with dressing changes Sedation/Anesthesia: No previous sedation/anesthesia problems (including family history). [facility] Past Medical History Medical History Tetralogy of Fallot Gout Surgical History Surgical History History of open heart surgery Noa-Taussig shunt and subsequent Tetralogy of Fallot repair. History of spinal surgery Family History Family History Other No pertinent family history Social History Social History Social History: Surrogate decision maker: Cindy Mendoza, . Code status: Full code. Smoking packs per day: 1 Smoking cigarettes per day: 20.0 Smoking status: Former smoker Tobacco type: cigarettes Additional smoking assessment comments: stopped smoking ay 38yrs old Alcohol intake: former Drinks per week: 1 Substance use: never Lack of Transportation: No Lack of Food: Never True Current Housing: I Have Housing Concerned About Future Housing: No Difficulty Paying Gas/Electric Bills: No Difficulty Paying for Meds: No Currently Unemployed: No Education: Bachelor's Degree Difficulty w/ Childcare or Family Care: No Additional living arrangements comments: The patient lives in [place] 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 Gender identity (if verbalized by the patient): Male Spiritual care concerns: No Mod Sed Physical Exam Physical Exam Pre Procedural Exam: Normal: Appearance, Throat, Lungs, Heart Rate and Heart Rhythm Hours since solid foods: 12 Hours since liquid intake: 12 Mallampati Classification: class III Internal Medicine - PN: Obj Da Vital Signs Vital Signs: Vital Signs - 24 hr 04/08/25 09:15 04/08/25 14:00 04/08/25 20:00 Temperature 97.2 F L Pulse Rate 71 84 Respiratory Rate 16 Blood Pressure 147/53 H Pulse Oximetry 99 100 Oxygen Delivery Room Air Room Air 04/08/25 21:32 04/09/25 05:56 Temperature 98.1 F 97.9 F Pulse Rate 72 71 Respiratory Rate 16 16 Blood Pressure 129/63 127/67 Pulse Oximetry 98 100 Oxygen Delivery Intake/Output Intake/Output: Intake & Output 04/06/25 04/07/25 04/08/25 04/09/25 23:59 23:59 23:59 23:59 Intake Total 1999 820 480 0 Balance 1999 820 480 0 Meds/Results Medications: Active Medications Generic Name Dose Route Start Last Admin Trade Name Freq PRN Reason Stop Dose Admin Aspirin 81 mg 04/07/25 06:10 04/07/25 06:30 Aspirin 81 Mg Enteric Tablet PO 81 mg On Hold: 04/07/25 12:42 QAM MARK Administration Neomycin/Polymyxin/Bacitracin 1 applic 04/07/25 18:47 Neomycin/Polymyxin/Bacitracin Ointment 15 Gm Tube TOPICAL PRN PRN with dressing changes Radiology Results: ITS Impressions Head CT 04/06/25 19:19 IMPRESSION: 1. No acute intracranial abnormality. Chest X-Ray 04/06/25 21:16 Impression: 1: Cardiomegaly with mild interstitial edema. Head/Neck CTA 04/07/25 08:09 IMPRESSION: 1. Normal aging brain. 2. No aneurysm or significant intracranial arterial stenosis. 3. 13% stenosis of the proximal right internal carotid artery relative to normal distal artery lumen diameter (NASCET criteria). 4. 0% stenosis of the proximal left internal carotid artery relative to normal distal artery lumen diameter. 5. Widespread lytic lesions of bone, consistent with multiple myeloma versus metastatic disease. ADDENDUM: 04/07/2535 I discussed the bone findings with Maddie Borges. Skeletal Survey 04/07/25 20:01 Impression: 1: Innumerable lytic defects throughout the visualized osseous structures, compatible with widespread multiple myeloma. Brain MRI 04/08/25 13:10 IMPRESSION: 1. Normal aging brain with mild scattered periventricular predominant calcific white matter T2 hyperintensity consistent with chronic small vessel ischemic disease. No acute intracranial process or abnormally enhancing brain lesions. 2. Multiple small enhancing calvarial lesions correspond to lytic lesions on prior CT and concerning for multiple myeloma or other metastatic disease. Cervical Spine MRI 04/08/25 13:38 IMPRESSION: 1. Widespread heterogeneous signal intensity in the bone marrow suspicious for multiple myeloma or metastatic disease. 2. Severe cervical spondylosis. Thoracic Spine MRI 04/08/25 13:47 IMPRESSION: 1. Widespread heterogeneous bone marrow signal intensity, consistent with multiple myeloma versus metastatic disease. 2. Moderate thoracic spondylosis. Labs 04/09/25 07:06 04/09/25 07:05 Labs: Laboratory Results - last 24 hr 04/07/25 04/08/25 04/09/25 06:32 11:35 07:05 WBC RBC Hgb Hct MCV MCH MCHC RDW Plt Count MPV Immature Gran % (Auto) Neut % (Auto) Lymph % (Auto) [place] % (Auto) Eos % (Auto) Baso % (Auto) Lymph # (Auto) [place] # (Auto) Eos # (Auto) Baso # (Auto) Abs Immat Gran (auto) Absolute Neuts (auto) Absolute Nucleated RBC Band Neutrophils % Nucleated RBC % Platelet Estimate Hypochromasia Macrocytosis Schistocytes Haptoglobin 41 PT 13.6 INR 1.0 Sodium 139 Potassium 3.9 Chloride 106 Carbon Dioxide 23 Anion Gap 10 BUN 13 Creatinine 1.29 Estim Creat Clear Calc 50 Estimated GFR 56 L Glucose 97 Calcium 11.4 H Total Bilirubin 0.9 AST 28 ALT 24 Alkaline Phosphatase 51 Total Protein 7.9 Albumin 4.2 04/09/25 07:06 WBC 2.7 L RBC 2.47 L Hgb 8.3 L Hct 26.4 L MCV 106.9 H MCH 33.6 MCHC 31.4 L RDW 15.0 H Plt Count 129 L MPV 9.1 Immature Gran % (Auto) 1.5 H Neut % (Auto) 48.7 Lymph % (Auto) 40.1 [place] % (Auto) 7.9 Eos % (Auto) 1.1 Baso % (Auto) 0.7 Lymph # (Auto) 1.07 [place] # (Auto) 0.2 Eos # (Auto) 0.0 Baso # (Auto) 0.0 Abs Immat Gran (auto) 0.04 H Absolute Neuts (auto) 1.3 Absolute Nucleated RBC 0.020 H Band Neutrophils % Not Reportable Nucleated RBC % 0.7 H Platelet Estimate Decreased Hypochromasia 1+ Macrocytosis 1+ Schistocytes None seen Haptoglobin PT INR Sodium Potassium Chloride Carbon Dioxide Anion Gap BUN Creatinine Estim Creat Clear Calc Estimated GFR Glucose Calcium Total Bilirubin AST ALT Alkaline Phosphatase Total Protein Albumin ASA Classification/Sedation ASA Classification/Sedation ASA Class: III Emergent: No Risks: Risks, benefits and alternatives explained and patient/family accepted plan for sedation. Patient re-evaluated immediately prior to sedation.
--- NOTE | 2025-04-09 09:20 | BM_PTH ---
PATIENT: Ramon Mendoza LOC: [id number] U#:[id number] AGE/SX: 65/M ROOM: 307 RE04/08/[address]: Sonu Link PA-C : 1960 BED: 01 DIS: 04/09/2025 SPEC #: [id number] RECD: 04/09/25 09:58 STATUS: CESILIA REDio #: [id number] MEKHI: 04/09/25 09:[address]: Kirt Gonzalez DEPT: [facility] Bone Marrow RECD BY: Paris Mckeon ENTERED: 04/09/25 09:58 SP TYPE: Bone Marro OTHR DR: SHANNON,CHARU Layne M.D., MD Riaz Naseer, MD Natalie J. Ross, PA Tissues: A - Bone Marrow Aspiration B - Bone Marrow Biopsy Procedures: Unstained Slides Hematoxylin and Eosin Stain Gross and Microscopic Level 4 Bone Marrow Smear Decalcification Iron Stain
[2025-04-09 09:45] VITALS: BP 129/65; PULSE 69; RESP 14; O2SAT 98
[2025-04-09 10:00] VITALS: BP 121/66; PULSE 77; RESP 14; O2SAT 100
[2025-04-09 10:50] VITALS: BP 128/72; PULSE 84; RESP 16; O2SAT 98
--- NOTE | 2025-04-09 13:36 | PC.NURSE ---
Addendum entered by Kavitha Sidhu RN 04/09/25 13:53: returned from laboratory coordinator at 1015 Original Note: pt returned from laboratory coordinator following bone marrow biopsy via bed, doing well, requesting diet to be resumed
--- NOTE | 2025-04-09 14:31 | P.DS_ITS ---
DS: Admitting Diagnosis Discharge Date 04/09/2025 Admitting Diagnosis Pancytopenia, frequent falls, lytic bone lesion on xr DS: Discharge Diagnosis Discharge Diagnosis (1) Pancytopenia: Code(s): D61.818 - Other pancytopenia Status: Acute Assessment and Plan: * WBC 2.6, Hgb 7.5, Plt 112, MCV 109 * Denied signs of bleeding. Denied history of cirrhosis or significant alcohol use. Reports history of normal colonoscopy and EGD. * Leading diagnosis is multiple myeloma given lytic lesions noted on CTA * Holding aspirin for now * Oncology consulted * Iron studies, occutl stool, SPEP/UPEP ordered * 18% saturation, otherwise iron studies WNL * SPEP/ UPEP pending (2) Lytic bone lesions on xray: Code(s): M89.8X9 - Other specified disorders of bone, unspecified site Status: Acute Assessment and Plan: * Diffuse lytic lesions noted on imaging * Anemia noted as above * Calcium 10.3, Cr 0.99 * Concern for multiple myeloma * Checking SPEP/UPEP * Oncology consulted, appreciate recs * Bone biopsy scheduled for tomorrow at 9:00 a.m. * PET scan as outpatient (3) Falls frequently: Code(s): R29.6 - Repeated falls Status: Acute Assessment and Plan: * Reports occasional balance difficulty starting about 6 months ago. Otherwise, patient is able to ambulate independently. Also having memory issues and following with [facility]. Patient reports recent PET scan and MRI brain as part of a research study. Records requested. * NIH 0 with no focal deficits this AM. * Apparently family in ER reported staring spells. Patient denies this. * Follow-up echo * Neurology consulted, appreciate recs. Patient reported recent MRI brain at [facility] (?) attempting to obtain records. May benefit from Repeat MRI pending neuro recs. * MRI of the cervical/thoracic spine to rule out spinal cord involvement * Echocardiogram * EMG nerve conduction study as outpatient * PT/OT consulted Plan DVT prophylaxis: ambulation Code status: full code Disposition: discharge home in 1-2 days pending oncology and neurology recs DS: Summary Hospital Course Reason for hospitalization: Frequent falls Hospital Course: Patient is a 65-year-old male with past medical history of gout, tetralogy of Fallot s/p cardiac surgery as a child, who presents with frequent falls who presented with falls, possible slurred speech/staring episode per ER note. Patient is alert and oriented x4. Family is not present at the time of my assessment. Patient states about 6 months ago he began having a little bit of trouble with his balance. Family has also noticed that he has had trouble with his memory. He has been following at [facility] for workup for dementia. States that yesterday he bent over and lost his balance and fell onto his knees. Denied prodromal lightheadedness, loss of consciousness, head injury. ER note mentions possible slurred speech however speech is clear upon my assessment patient denies any history of this. Denies any facial droop, numbness/tingling, unilateral weakness, fever, chills, chest pain, shortness of breath. In ED, WBC 2.6, Hgb 7.5, Plt 112, MCV 109. UA negative for infection. CT head no acute process. CTA head and neck with no LVO or significant stenosis, but with widespread lytic lesions of the bone. CXR with cardiomegaly with mild interstitial edema. Neurology consulted regarding frequent falls. Agree that episodic weakness given history of cardiac surgery would need to rule out possibility of recurrent TIA. CTA is normal but will benefit from echocardiogram. Echocardiogram showed mild concentric LVH with good systolic function, paradoxical septal motion because bundle branch block, mild atrial left enlargement, sclerotic aortic valve with good leaflet separation and deviation of the interatrial septum right to left. CTA did however show widespread lytic lesions of the bone consistent with multiple myeloma versus metastatic disease. Skeletal survey obtained on 04/07 was consistent with innumerable lytic defects throughout the visualized osseous structures compatible with widespread multiple myeloma. Brain MRI showed normal aging brain with mild scattered periventricular predominant calcific white matter T2 hyperintensity consistent with chronic small-vessel ischemic disease, but no acute intracranial process or abnormally enhancing brain lesions. Also showed multiple small enhancing calvarial lesions corresponded to lytic lesions on prior CT and concerning for multiple myeloma. Cervical/thoracic spine MRI obtained which showed widespread heterogenous spinal intensity in the bone marrow suspicious for multiple myeloma or metastatic disease with severe cervical/thoracic spondylosis. Neurology agrees with the patient will benefit from EMG and nerve conduction study as an outpatient test. Hematology/oncology consulted -ordered bone marrow aspiration/biopsy, serum protein electrophoresis, immunofixation studies, quantitative immunoglobin and serum free light chain studies. The studies will be followed up in the outpatient setting, including bone marrow biopsy. This was obtained on 04/09 in the a.m.. He was also given an injection of 1000 mcg B12 injection. PET scan will also be obtained in the outpatient setting. Patient underwent a bone marrow biopsy on 04/09 in his otherwise hemodynamically stable at this point. Still presenting with pancytopenia, however he can follow-up in the outpatient setting with Hematology and Neurology regarding the nerve conduction/EMG studies and the results of the biopsy and blood work obtained regarding the lytic bone lesions found on imaging. PT/OT was obtained regarding the frequent falls and patient did not have any indications for further rehab at this point. Plan for discharge home at this time. Status at Discharge Functional status at discharge: independent ambulation Overall status at discharge: patient is back to baseline Time Spent with Patient Time attestation: Total time spent providing and/or coordinating discharge services: 36 Exam Narrative: General: NAD Eyes: EOMI ENT: neck supple Cardiovascular: Regular rate and rhythm Respiratory: Clear to auscultation, respirations even and unlabored on RA Gastrointestinal: Soft, non tender Genitourinary: no suprapubic tenderness Musculoskeletal: No edema Skin: warm, dry Neuro: Alert and oriented x4. Cranial nerves II-XII intact. Face symmetric. Speech clear. Strength 5/5 in BUEs/BLEs. Sensation to light touch intact BUE/BLEs. No dysmetria BUE/BLEs. Psych: Mood appropriate DS: Data Data Completed and Pending Pending studies at discharge: Pending at discharge 04/07/25 18:48 Bone Marrow [PTH] Routine Labs on day of discharge: Labs from last 24 hours 04/09/25 04/09/25 07:06 07:05 WBC 2.7 L RBC 2.47 L Hgb 8.3 L Hct 26.4 L MCV 106.9 H MCH 33.6 MCHC 31.4 L RDW 15.0 H Plt Count 129 L MPV 9.1 Immature Gran % (Auto) 1.5 H Neut % (Auto) 48.7 Lymph % (Auto) 40.1 [place] % (Auto) 7.9 Eos % (Auto) 1.1 Baso % (Auto) 0.7 Lymph # (Auto) 1.07 [place] # (Auto) 0.2 Eos # (Auto) 0.0 Baso # (Auto) 0.0 Abs Immat Gran (auto) 0.04 H Absolute Neuts (auto) 1.3 Absolute Nucleated RBC 0.020 H Band Neutrophils % Not Reportable Nucleated RBC % 0.7 H Platelet Estimate Decreased Hypochromasia 1+ Macrocytosis 1+ Schistocytes None seen Sodium 139 Potassium 3.9 Chloride 106 Carbon Dioxide 23 Anion Gap 10 BUN 13 Creatinine 1.29 Estim Creat Clear Calc 50 Estimated GFR 56 L Glucose 97 Calcium 11.4 H Total Bilirubin 0.9 AST 28 ALT 24 Alkaline Phosphatase 51 Total Protein 7.9 Albumin 4.2 Discharge Plan Discharge Attending physician on discharge: Steve Hunter Consulting providers: Maddie Borges; Kirt Gonzalez; Waylon Chapin; Sonu Link Discharging Clinician: Sonu Link Anticipated Discharge Date/Time: 04/09/25 14:29 Patient Disposition: Home Activity: no straining Diet: regular Discharge Instructions: Discharge disposition: Home Take medications as prescribed Monitor blood pressures Take caution while standing, rising, or moving Change positions slowly taking a break between each position change If you standing feel dizzy sit back down and take a break Encouraged to continue with yearly vaccinations Return to the emergency department if he developed sudden shortness of breath, chest pain, nausea, vomiting, upset stomach or intractable diarrhea Return to the emergency department if you develop fever greater than 101.5 Follow-up with the primary care physician within 1-2 weeks Follow-up with Dr. Gonzalez of Hematology/Oncology, call his office today to schedule appointment for next week to follow-up on results of your bone marrow biopsy. Follow up with Dr. Chapin of Neurology regarding setting up a possible EMG/nerve conduction study study. Thank you for [facility] for your healthcare needs Patient Instructions: Bone Marrow Biopsy (DC) Patient Language: Amharic Stand Alone Forms: General Discharge Information Follow-up/Referrals: Kirt Gonzalez MD [Physician, Hematology] Wendy,Juan Gonzalez M.D. [Primary Care Provider] Waylon Chapin MD [Physician, Neurology] Discharge Medications: Continued aspirin [Adult Low Dose Aspirin] 81 mg tablet,delayed release (DR/EC) 81 mg PO DAILY Date of admission: 04/08/25 13:52 Primary Care Provider: RejiJuan Admitting Provider: Gayle Martinez Attending physician on admission: Gayle Martinez Condition: Stable Quality VTE Prophylaxis VTE prophylaxis: mechanical ordered
[2025-04-09 15:09] LABS: Albumin 3.9 g/dL (2.9-4.4); Alpha-1-Globulin 0.2 g/dL (0.0-0.4); Alpha-2-Globulin 0.5 g/dL (0.4-1.0); Gamma Globulin 1.5 g/dL (0.4-1.8)
[2025-04-10 15:09] LABS: Albumin, U 8.0 % (.); Alpha-1-Globulin, U 0.6 % (.); Alpha-2-Globulin, U 5.8 % (.); Beta Globulin, U 82.9 % (.); Gamma Globulin, U 2.7 % (.)
[2025-04-13 10:08] LABS: Immunoglobulin A, Qn 15 mg/dL (61-437); Immunoglobulin G, Qn 1882 mg/dL (603-1613); Immunoglobulin M, Qn 8 mg/dL (20-172)
== END 2025-04-09 15:26 | disposition home or self-care (01) | DRG 841 ==
LOC: ANHED 21:53 → ANH3MEDSUR 04-07 02:25
PROVIDERS: Emergency Medicine; Internal Medicine Hematology & Oncology; Physician Assistant; Radiology Diagnostic Radiology; Admitting Provider General Practice; Emergency Provider Emergency Medicine; PCP Internal Medicine; Visit Provider Physician Assistant
PROC: 079T3ZX Drainage of Bone Marrow, Percutaneous Approach, Diagnostic (ICD-10-PCS; principal; 2025-04-09 09:00)
DX: C90.00 Multiple myeloma not having achieved remission (principal); D61.818 Other pancytopenia; G95.9 Disease of spinal cord, unspecified; M89.8X8 Other specified disorders of bone, other site; R41.3 Other amnesia; I51.7 Cardiomegaly; F10.90 Alcohol use, unspecified, uncomplicated; I45.10 Unspecified right bundle-branch block; I65.21 Occlusion and stenosis of right carotid artery; D50.9 Iron deficiency anemia, unspecified; Z91.81 History of falling; Z87.74 Personal history of (corrected) congenital malformations of heart and circulatory system; Z87.891 Personal history of nicotine dependence
CPT/HCPCS: 36415; 38222; 70450; 70496; 70498; 70553; 71045; 72141; 72146; 77075; 80048; 80053; 81003; 82607; 82728; 82746; 82784; 82948; 83010; 83540; 83550; 83605; 83735; 83880; 84155; 84156; 84165; 84166; 84484; 85025; 85027; 85046; 85610; 85730; 86334; 88305; 88311; 88313; 93005; 96361; 97161; 97165; 99285; A9270; A9577; C8929; G0378; J2250; J3010; J7030; Q9957; Q9967

== ENCOUNTER 2025-04-28 11:51 | Outpatient (CLI) | payer MEDICARE, OTHER, SELFPAY ==
--- NOTE | ~2025-04-28 | PE_ITS ---
EXAMINATION: PET skull to mid thigh DATE: 04/28/2025 14:18 INDICATION: Multiple myeloma. TECHNIQUE: Blood glucose level was 78 mg/dL. 8.783 mCi of 18-fluorodeoxyglucose (18-FDG) was administered i.v. Low dose computed tomography (CT) images were acquired from the base of the brain to the proximal thighs for attenuation correction and anatomic localization. Automated exposure control was employed. Dose-length product (DLP) was 1108 mGy-cm. Positron emission tomography (PET) images were acquired in the same distribution. COMPARISON: None FINDINGS: Head/neck: There are no pathologically enlarged lymph nodes. There are innumerable widespread lytic lesions of bone with increased activity. Chest: There is mild scarring in paraspinal right lower lobe. There is a pneumatocele in left lower lobe. No pleural effusion. Cardiomegaly is noted. There are coronary artery calcifications. No pericardial effusion. Pericardial calcifications are noted. There is a small sliding hiatal hernia. There are innumerable widespread lytic lesions of bone with increased activity. Abdomen/pelvis/proximal thighs: The liver is normal. There are gallstones in the gallbladder, which is contracted. The spleen, pancreas, adrenal glands, and kidneys are normal. The prostate is mildly enlarged. There is diverticulosis of the colon without evidence of diverticulitis. The appendix is normal. There are no dilated loops of bowel. There are no pathologically enlarged lymph nodes. There is no free intraperitoneal fluid. There are innumerable widespread lytic lesions of bone with increased activity. IMPRESSION: 1. Innumerable widespread lytic lesions of bone with increased activity, consistent with multiple myeloma. Reviewed, dictated and finalized at location E. IMPRESSION: 1. Innumerable widespread lytic lesions of bone with increased activity, consis tent with multiple myeloma.
--- OUTSIDE RECORDS SUMMARY | 2025-04-28 13:50 | XMS_ITS | Encounter Summary ---
Author Organization [facility] Address [address] [place] [address] Phone Care Team Providers Care Gas Appliance Servicer Name Role Phone Juan Nguyen MD Primary Care Provider [phone] Encounter Details Date Type Department Care Team (Late st Contact Info) Description 12/17/2017 Therapy [facility] Medicine General Neurology [address] [facility] 6th [address] [place] [id number] Jess Davis MA Social History Tobacco Use Types Packs/Day Years Used Date Smoking Tobacco: Former Sex and Gender Information Value Date Recorded Sex Assigned at Not on file Legal Sex Male 3:08 AM [employer] Gender Identity Not on file Sexual Orientation Not on file documented as of this encounter Plan of Treatment Scheduled Procedures Name Priority Associated Diagnoses Date/Ti mo ESOPHAGOGASTRODUODENOSCOPY Gastroesophageal reflux disease, unspecified whether esophagitis present documented as of this encounter Visit Diagnoses Not on filedocumented in this encounter Care Teams [employer] App[employer] Servicer Relationship Specialty Start Date End Date Juan Nguyen MD PCP - General 10/30/16 documented as of this encounter
--- OUTSIDE RECORDS SUMMARY | 2025-04-28 13:50 | XMS_ITS | Clinical Summary ---
Author Organization [facility] Address [address] [place] [address] Care Team Providers Care Crayon Painter Name Role Phone Juan Nguyen MD Primary Care Provider [phone] Allergies No known active allergies Medications aspirin 81 mg enteric coated tablet Take 1 tablet (81 mg total) by mouth daily Active Active Problems Problem Noted Date Diagnosed Date [...] (07/29/2021): Added automatically from request for surgery [id number] Bilateral hand pain 12/31/2019 Chronic pain of both knees 12/31/2019 Obesity 11/06/2017 Obstructive sleep apnea 03/14/2017 Gout 02/23/2017 Spinal stenosis of lumbar region 08/17/2016 Herniated lumbar intervertebral disc 08/04/2016 Numbness of lower extremity 08/04/2016 Lumbar radiculopathy 08/04/2016 Tetralogy of Fallot s/p repair 09/01/2010 Encounters Date Type Department Care Team Description 04/09/2025 Orders Only [facility] [address] [place] [phone] Juan Nguyen MD 03/23/2025 Results Follow-Up [facility] [address] [address] Juan Nguyen MD Reticulocyte Count 03/23/2025 Orders Only [facility] [address] [address] Juan Nguyen MD Normocytic anemia after acute hemorrhage (Primary Dx) 03/20/2025 1:29 PM CDT - 03/20/2025 11:59 PM CDT Hospital Encounter [address] [address] Normocytic anemia Discharge Disposition: Discharge to home or self care 03/20/2025 Results Follow-Up [facility] [address] [address] Juan Nguyen MD POCT UA, AUTO W/O SCOPE, POCT hemoglobin A1c, POCT lipid panel, Additional followed-up results: 3 03/20/2025 Orders Only [facility] [address] [address] Juan Nguyen MD Normocytic anemia (Primary Dx) 03/19/2025 10:00 AM CDT Office Visit [facility] [address] [address] Juan Nguyen MD Encounter for Medicare annual wellness exam (Primary Dx); S/P colonoscopy: neg 2021; Lumbar radiculopathy; Memory loss; Obstructive sleep apnea; Idiopathic gout, unspecified chronicity, unspecified site; Tetralogy of Fallot s/p repair; BMI 27.0-27.9,adult 03/09/2025 12:00 PM CDT - 03/09/2025 11:59 PM CDT Hospital Encounter [facility] [address] [place] [address], [place] [address] Discharge Disposition: Discharge to home or self care 03/09/2025 11:59 AM CDT - 03/09/2025 11:59 PM CDT Hospital Encounter [facility] ([facility]) [address] [place] [address] Memory loss Discharge Disposition: Discharge to home or self care 02/16/2025 1:08 PM CDT - 02/16/2025 11:59 PM CDT Hospital Encounter [facility] ([facility]) [address] [place] [address] Discharge Disposition: Discharge to home or self care 02/16/2025 1:08 PM CDT - 02/16/2025 11:59 PM CDT Hospital Encounter [facility] ([facility]) [address] [place] [address] Memory loss Discharge Disposition: Discharge to home or self care 02/10/2025 Telephone [facility] [address] [address] [place] [address] Rose Mary Arriola, RN 02/10/2025 [facility] [address] [facility] [address] [place] [address] Rose Mary Arriola, RN 01/29/2025 [facility] [place] [address] Susie Barnard MA from Last 3 Months Immunizations Immunization Administration [...] on file Legal Sex Male 3:08 AM SPANISH INTERPRETER/TRANSLATOR Gender Identity Not on file Sexual Orientation [...] CDT Respiratory Rate 15 09/13/2021 3:47 PM SPANISH INTERPRETER/TRANSLATOR Oxygen Saturation 100% 03/19/2025 9:57 AM CDT [...] Aneurysm (A AA) Screen 2023 Covid-19 Vaccine (5 - 2024-2 6 season) 2025 07/22/2022, 06/20/2021, 09/13/2020, Additional [...] Procedure Name Priority Date/Time Associated Diagnosis Comments SCAN - PATHOLOGY 04/09/2025 4:01 PM CDT RETICULOCYTES Routine 03/20/2025 8:17 AM CDT Normocytic [...] CDT Encounter for Medicare annual wellness exam BMI 27.0-27.9,adult POCT HEMOGLOBIN A1C Routine 03/19/2025 1 0:09 AM CDT Encounter for Medicare annual wellness exam PET/CT TAU BRAIN IMAGING Schedule Routine, Read Routine (OP Routine) 03/09/2025 3:28 PM CDT Memory loss PET/CT AMYLOID BRAIN Schedule Routine, Read Routine (OP Routine) 02/16/2025 2:44 PM CDT Memory loss COLONOSCOPY 09/13/2021 3:00 PM SPANISH INTERPRETER/TRANSLATOR from Last 3 Months or Most Recently Relevant to Health Maintenance Results * SCAN - PATHOLOGY (04/09/2025 4:01 PM CDT) Juan Nguyen MD Final Resu lt * (ABNORMAL) Reticulocyte Count (03/20/2025 8:17 AM CDT) Retics, absolute 96(H) 20 - 87 K/cumm Retics 3.9(H) 0.4 - 2.9 % MICAH ABREU Reticulocyte Hgb 33.3 30.5 - 38.0 pg MICAH ABREU Blood 03/20/2025 8:17 AM CDT 03/20/2025 2:40 PM CDT Juan Nguyen MD LAB BLOOD ORDERABLES Final Result MICAH WALTERS [facility] Department [place] [address] * (ABNORMAL) Iron profile w/ IBC (03/20/2025 8:08 AM CDT) Iron 61.5 59.0 - 158.0 ug/dL [facility] GMDA Total Iron Binding Capacity 366.0 ug/dL [facility] GMDA Unsaturated Iron Binding Capacity 304.5 112.0 - 346.0 ug/dL [facility] GMDA % Iron Saturation 16.8(L) 25.0 - 45.0 % [facility] GMDA Blood 03/20/2025 8:08 AM CDT 03/20/2025 8:15 AM CDT Juan Nguyen MD LAB BLOOD ORDERABLES Final Result Performing Organization Address City/[facility]/ZIP Co de Phone Number [address] [place] [address] * Vitamin B12 (03/20/2025 8:08 AM CDT) Pathologist [facility] Vitamin B12 415 232 - 1,245 pg/mL [facility] Blood 03/20/2025 8:08 AM CDT 03/20/2025 8:15 AM CDT Juan Nguyen MD LAB BLOOD ORDERABLES Final Result Performing Organization Address [facility] Co de Phone Number [address] * POCT UA, AUTO W/O SCOPE (03/19/2025 10:46 AM CDT) Color, Urine, POC Yellow Clarity, ur, POC Clear Clear Glucose, ur, POC Negative Negative Bilirubin, ur, POC Negative Negative Ketones, ur, POC Negative Negative Specific [place], POC 1.010 1.003 - 1.030 Blood, ur, [...] MD LAB BLOOD ORDERABLES Final Result MK RODRIGUEZ [address] [place] [phone] * (ABNORMAL) CBC with auto differential (03/19/2025 [...] BLOOD ORDERABLES Final Result [facility] GMDA [address] [phone] * (ABNORMAL) Comprehensive metabolic panel [...] BLOOD ORDERABLES Final Result [facility] [address] [phone] * (ABNORMAL) POCT lipid panel [...] Result * Tau PET Brain Imaging [facility] Research Study (REQUIRED) (03/09/2025 3:28 PM CDT) [...] TAU-PET/CT IMAGING DATE OF STUDY: 03/09/2025 SCANNER: Zuffle N PET Vision (NV1). This is a [...] TAU-PET/CT IMAGING DATE OF STUDY: 03/09/2025 SCANNER: Zuffle N PET Vision (NV1). This is a [...] signed by: Beth Arredondo M.D. Carlos Granados LABEL REMOVER IMG PET PROCEDURES Final Result * Amyloid PET Brain Imaging for [facility] Research Study (02/16/2025 2:44 PM CDT) Anatomical [...] clinical practice. Reference: Centiloid recommendations for clinical [id number]-[id number] from the AMYPAD consortium PMCID: [id number] DOI:10.1002/alz.52066 General comments on amyloid-PET interpretation: A negative [...] AMYLOID-PET/CT IMAGING DATE OF STUDY: 02/16/2025 SCANNER: Zuffle [place] (NV1). RADIOPHARMACEUTICAL: 11.8 mCi F-18 florbetapir i.v. [...] performed. The study was interpreted on the [employer] workstation. Chujian semiquantitative software and [employer] software was used for centiloid quantification of [...] AMYLOID-PET/CT IMAGING DATE OF STUDY: 02/16/2025 SCANNER: Zuffle N PET Vision (NV1). RADIOPHARMACEUTICAL: 11.8 mCi [...] performed. The study was interpreted on the [employer] workstation. Chujian semiquantitative software and [employer] software was used for centiloid quantification of [...] clinical practice. Reference: Centiloid recommendations for clinical rrsdtzw-io-wgj from the AMYPAD consortium PMCID: [id number] DOI:10.1002/alz.45582 General comments on amyloid-PET interpretation: A negative [...] by: Va Corado M.D. us Carlos Granados LABEL REMOVER IMG PET PROCEDURES Final Result * COLONOSCOPY (09/13/2021 3:00 PM SPANISH INTERPRETER/TRANSLATOR) Anatomical Region Laterality Modality Other Narrative Procedure Note Uri Hodges MD PhD - 09/13/2021 3:00 PM [facility] Patient Name: Ramon Mendoza Procedure Date: 09/13/2021 3:00 PM Date of : 1960 Admit Type: Outpatient Age: 61 Gender: Male Attending MD: Uri Hodges MD,PHD Room: [facility] ENDOSCOPY ROOM 8 Note Status: Finalized Procedure: [...] The scope was passed under direct vision.The CF [id number] endoscope was introduced through the anus and advanced to the cecum, identified by appendiceal orifice and ileocecal valve. The colonoscopy was performed without difficulty. The patient tolerated the procedure well. The qualityof the bowel preparation was excellent. The quality of the bowel preparation was evaluated using the BBPS ([place] Bowel Preparation Scale) with scores of:Right Colon [...] On: 09/13/2021 3:00 PM Recognized by the [employer] for promoting quality in endoscopy Uri Hodges MD PhD ENDOSCOPY PROCEDURES Chelle l Result from Last 3 Months or Most Recently Relevant to Health Maintenance Insurance [place] [employer] [place] [employer] [place] [id number] MEDICARE [facility] Advance Directives For more information, please contact: [phone] * Full Code (Latest Code Status on File) Date Activated Date Inactivated Comments 09/13/2021 2:27 PM 09/13/2021 8:09 PM Care Teams Crayon Painter Relationship Specialty Start Date End Date Juan Nguyen MD PCP - General 10/30/16
--- OUTSIDE RECORDS SUMMARY | 2025-04-28 13:50 | XMS_ITS | Clinical Summary ---
Author Organization [facility] humberto Marcelo Address [address] [place] [address] Care Team Providers Care Medical Technologist Microbiology Name Role Phone Juan Nguyen MD Primary Care Provider Allergies No known active allergies Medications dexAMETHasone (DECADRON) 4 mg tablet Take 10 tablet every Sunday 40 Tablet 5 04/16/20 25 Active acyclovir (ZOVIRAX) 400 mg tablet Take 1 Tablet (400 mg) by mouth see administration instructions. 60 Tablet 6 04/16/20 25 Active sulfamethoxazo le-trimethopri m (BACTRIM DS) 800-160 mg tablet 1 tablet twice a day Sunday and Sunday 16 Tablet 5 04/16/20 25 Active lenalidomide (Revlimid) 25 mg capsuleIndicat ions:Multiple myeloma not having achieved remission (CMS/HCC) Take 1 capsule (25 mg) by mouth daily for 14 days on, 7 days off. Repeat every 21 days. 14 Capsule 04/20/20 25 025 Active lenalidomide (Revlimid) 25 mg capsule Take 1 capsule (25 mg) by mouth daily for 14 days on, 7 days off. Repeat every 21 days. 14 Capsule 04/16/20 25 025 Discontin ued(Reord er) Active Problems Problem Noted Date Diagnosed Date Multiple myeloma not having achieved remission 1 Encounters Date Type Department Care Team Description 04/21/2025 External Device Data [facility] ABSTRACTION Provider, Abstract 04/21/2025 External Device Data [facility] ABSTRACTION Provider, Abstract 04/21/2025 External Device Data [facility] ABSTRACTION Provider, Abstract 04/21/2025 Specialty Pharmacy [facility] [address] [place] [phone] Carissa Vilchis, PHARMACIST 04/20/2025 Telephone [facility]cology [facility] Hematology - [address] [place] [address] Kirt Gonzalez MD Medication Review 04/20/2025 Specialty Pharmacy [facility] [place] [address] Carissa Vilchis, PHARMACIST 04/16/2025 10:30 AM CDT Office Visit [facility] - [address] [place] [address] Kirt Gonzalez MD Multiple myeloma not having achieved remission (CMS/HCC) (Primary Dx) 04/15/2025 Orders Only [facility] - [address] [place] [address] Kirt Gonzalez MD from Last 3 Months Family History Medical History Relation Name Comments No Known Problems Child 1 No Known Problems Child 2 No Known Problems Child 3 Diabetes Father Dementia Mother Stroke Mother Relation Name Status Comments Child 1 Alive Child 2 Alive Child 3 Alive Father Mother Social History Tobacco Use Types Packs/Day Years Used Date Smoking Tobacco: Former Cigarettes 1 24 1 - 04/16/1998 Smokeless Tobacco: Never Alcohol Use Standard Drinks/Week Comments Never 0 (1 standard drink = 0.6 oz pur e alcohol) Sex and Gender Information Value Date Recorded Sex Assigned at Not on file Legal Sex Male 1:19 PM CDT Gender Identity Not on file Sexual Orientation Not on file Last Filed Vital Signs Vital Sign Reading Time Taken Comments Blood Pressure 156/68 04/16/2025 10:24 AM CDT Pulse 43 04/16/2025 10:21 AM CDT Temperature 36.3 C (97.3 F) 04/16/2025 10:21 AM CDT Respiratory Rate 16 04/16/2025 10:21 AM CDT Oxygen Saturation 97% 04/16/2025 10:21 AM CDT Inhaled Oxygen Concentration - - Weight 81.2 kg (179 lb) 04/16/2025 10:21 AM CDT Height 175.3 cm (5' 9) 04/16/2025 10:21 AM CDT Body Mass Index 26.43 04/16/2025 10:21 AM CDT Plan of Treatment Health Maintenance Due Date Last Done Comments Pre-Diabetes and Diabetes Screening 1960 Traditional Medicare (ACO) A nnual Wellness Visit 1977 ZOSTER VACCINE (1 of 2) 1977 FIT-DNA Q 3 years 2003 FIT/FOBT Q 1 year 2003 Flex Sig/CT Colonography Q 5 years 2003 RSV VACCINE (60+ or ) (1 - Risk 60-74 years 1-dose series) 2018 Abdominal Aortic Aneurysm (A AA) Screening 2023 INFLUENZA VACCINE (#1) 2025 07/22/2022, 2019 COVID-19 Vaccine (5 - 2024-2 6 season) 2025 07/22/2022, 06/20/2021, 09/13/2020, Additional history exists COLORECTAL SCREENING 09/14/2031 09/13/2021, 09/14/19 22 Colorectal Cancer Screening 09/14/2031 DTAP/TDAP/TD VACCINES (2 - T d or Tdap) 11/12/2033 11/13/2023 PNEUMOCOCCAL VACCINE 50+ YEARS Completed 03/19/2025 Procedures Procedure Name Priority Date/Time Associated Diagnosis Comments PATHOLOGY Routine 04/09/2025 12:24 PM CDT from Last 3 Months Results * PATHOLOGY (04/09/2025 12:24 PM CDT) Tissue us Kirt Gonzalez MD PATHOLOGY/CYTOLOGY ORDERABLES F inal Result from Last 3 Months Insurance MEDICARE PART A AND B [facility] Member Subscriber Plan / Payer (Ef fective 2025-Present) Name:Mendoza Ramon Relation to Subscriber:Self Name:Ramon Mendoza Payer ID:Not on file Group ID:[id number] Type:RX Commercial Address: [address] Care Teams Medical Technologist Microbiology Relationship Specialty Start Date End Date Juan Nguyen MD [address] [place] [address] PCP - General Internal Medicine 04/16/25
--- OUTSIDE RECORDS SUMMARY | 2025-04-28 13:50 | XMS_ITS | Clinical Summary ---
Author Organization [facility] Address [address] [place] [address] Care Team Providers Care Customer Experience Associate Name Role Phone Juan Nguyen MD Primary Care Provider +1- [phone] Source Comments [facility],non-owned Affiliates and Associated Physician Practices is amultiple site organization consisting of ambulatory clinics and hospital sitesin [place], [place], [place] and [place]. This disclosure is being madepursuant to the Care Everywhere program and may not contain all information available regarding this patient. Last updated 18.[facility] Allergies No known active allergies Medications * Be aware that medications may not be up to date on this document. Alwaysverify current medications with the patient. colchicine 0.6 MG tabletIndicatio ns:Acute idiopathic gout of right wrist Take 2 tablets by mouth at onset of acute gout flare followed by 1 tablet in 1 hour, for a total dose of 3 tablets. 3 Tab 01/27/2017 Active Encounters Date Type Department Care Team Description 04/10/2025 Lab Requisition [facility] - Pathology Lab [address] [place] [address] Irving Wilson MD Illness, unspecified 04/09/2025 Lab Requisition [facility] - Pathology Lab [address] [place] [address] Irving Wilson MD Other pancytopenia (HCC) from Last 3 Months Family History Medical History Relation Name Comments CVA Mother Hypertension Mother Relation Name Status Comments Mother Social History Tobacco Use Types Packs/Day Years Used Date Smoking Tobacco: Former Cigarettes Smokeless Tobacco: Never Sex and Gender Information Value Date Recorded Sex Assigned at Not on file Legal Sex Male 10:33 AM CDT Gender Identity Not on file Sexual Orientation Not on file Last Filed Vital Signs Vital Sign Reading Time Taken Comments Blood Pressure 133/88 01/27/2017 10:48 AM CDT Pulse 84 01/27/2017 10:40 AM CDT Temperature 37.1 C (98.7 F) 01/27/2017 10:40 AM CDT Respiratory Rate 16 01/27/2017 10:40 AM CDT Oxygen Saturation 99% 01/27/2017 10:40 AM CDT Inhaled Oxygen Concentration - - Weight 96.6 kg (213 lb) 01/27/2017 10:40 AM CDT Height 174 cm (5' 8.5) 01/27/2017 10:40 AM CDT Body Mass Index 31.92 01/27/2017 10:40 AM CDT Plan of Treatment Health Maintenance Due Date Last Done Comments COLOGUARD (AGES 45-75) - COL ON CA SCREENING 1958 COLON MONITORING 1958 COLONOSCOPY - COLON CA SCREENING 1958 CT COLONOGRAPHY - COLON CA SCREENING 1958 Colorectal Cancer Screening 1958 FIT - COLON CA SCREENING 1958 FLEX SIG - COLON CA SCREENING 1958 LIPID TESTING 1958 MEDICARE AWV 12 MONTHS 1958 HEPATITIS C SCREENING 03/22/1976 DTAP/TDAP/TD VACCINES (1 - Tdap) 1977 PNEUMOCOCCAL VACCINE 50+ (1 of 1 - PCV) 2008 ZOSTER VACCINE (1 of 2) 2008 SCREENING FOR DIABETES 01/27/2017 AAA SCREENING 2023 DEPRESSION SCREENING 07/16/2024 COVID-19 VACCINE (1 - 2023-2 5 season) 2025 INFLUENZA VACCINE (#1) 2025 Respiratory Syncytial Virus (RSV) Vaccine Pt: or over 60 yrs (1 - 1-dose 75+ series) 2033 HEPATITIS B VACCINE Aged Out No longe r eligible based on patient's age to complete this topic HIB VACCINE Aged Out No longer eligi ble based on patient's age to complete this topic HPV VACCINE Aged Out No longer eligi ble based on patient's age to complete this topic MENINGOCOCCAL (Group B) VACC INE SHARED DECISION-MAKING Aged Out No longer eligibl e based on patient's age to complete this topic MENINGOCOCCAL GROUPS A/C/Y/W VACCINE Aged Out No longer eligible b ased on patient's age to complete this topic Procedures Procedure Name Priority Date/Time Associated Diagnosis Comments BONE MARROW BIOPSY (STL) Routine 04/09/2025 9:20 AM CDT Illness, unspecified FLOW CYTOMETRY BONE MARROW Routine 04/09/2025 9:20 AM CDT Other pancytopenia (HCC) from Last 3 Months Results * FLOW CYTOMETRY BONE MARROW (04/09/2025 9:20 AM CDT) Case Report Flow Cytometry Case: [id number] Authorizing Provider: Irving Wilson Collected: 04/09/2025 09:20 AM MD Darrell Ordering Location: [facility] - Received: 04/09/2025 12:46 PM Pathology Lab Pathologist: Miguel Suárez MD Specimen: Bone Marrow 04/10/2025 10:42 AM CDT [facility] Final Diagnosis Bone marrow, flow cytometry: - Clonal kappa light chain restricted plasma cell population with aberrant CD34 and CD33 expression (~57% of overall events) 04/10/2025 10:42 AM CDT [facility] at 1042 CDT Flow Cytometry Interpretation Viability: 87% B-cells: no significant population T-cells: not increased Blasts: not detected, the CD34+ events are CD138 positive, which is a marker that defines plasma cells. Plasma cells: monoclonal, kappa-restricted, positive for CD38, CD138, cCD79a, cCD22, CD56, CD117, with ~50% of plasma cells having lost CD19 aberrantly. A large subset of plasma cells also co-express CD34 and CD33 aberrantly. TdT is negative. A bone marrow aspirate smear prepared from the flow cytometry specimen has been reviewed for environmental quality analyst purposes. Review shows numerous atypical plasma cells, small, with occasional nucleolus. Histologic review of the bone marrow core will follow in a separate report. 04/10/2025 10:42 AM CDT [facility] Flow Cytometry Results Differential Result Comment Flow Cell Count /uL 14,100 Total Viability % 87.0 Lymphocytes % 9 Dim CD45 Region % 66 Monocytes % 1 Granulocytes % 22 04/10/2025 10:42 AM [facility] Reason for test Other pancytopenia (HCC) 284.19 04/10/2025 10:42 AM [facility] Client Specimen ID # [id number] 04/10/2025 10:42 AM [facility] Number of markers 21 were performed. A-2 Flow CD10 A-3 Flow CD13 A-5 Flow CD20 A-13 Flow CD117 A-14 FLOW CD138 A-15 Flow CD15 A-16 Flow CD22 A-1 Flow CD5 A-4 Flow CD19 A-6 Flow CD33 A-7 Flow CD34 A-8 Flow CD45 A-11 Flow CD38 A-12 Flow CD56 A-20 cyCD22 A-21 qcCM34k A-9 [place]+CD19+ A-10 Lambda+CD19+ A-17 Flow MPO A-18 Flow TdT A-19 cyCD3 04/10/2025 10:42 AM [facility] Pathologist Location at [facility] 04/10/2025 10:42 AM [facility] Disclaimer Test performed at [facility], [address] [place] [address], [address]. *The established laboratory minimum viability is 70%. Values below the minimum may result in the failure to find an abnormal population of cells. This test was developed and its performance characteristics determined by the Flow Cytometry Laboratory. It has not been cleared by the [place] Food and Drug Administration (FDA). The FDA has determined that such clearance or approval is not necessary. This test is used for clinical purposes. It should not be regarded as investigational or for research. This laboratory is regulated under the Clinical Laboratory Improvement Amendments of 1998 (CLIA) as a qualified to perform high complexity clinical testing. 04/10/2025 10:42 AM [facility] Embedded Images 10:42 AM [facility] Pathology/Cytolo gy BONE MARROW SPECIMEN / Unknown 04/09/2025 9:20 AM CDT 04/09/2025 12:46 PM CDT Irving Wilson MD LAB - PATHOLOGY/CYT OLOGY ORDERABLES Final Result [facility] [address] [place] [address], [facility] [phone] * BONE MARROW BIOPSY (STL) (04/09/2025 9:20 AM CDT) Case Report Bone Marrow Patholog y Report Case: [id number] Authorizing Provider: Irving Wilson Collected: 04/09/2025 09:20 AM MD Darrell Ordering Location: [facility] - Received: 04/10/2025 02:41 PM Pathology Lab Pathologist: Miguel Suárez MD Specimens: A) - Bone Marrow Clot B) - Bone Marrow Core 04/15/2025 1:59 PM CDT [facility] Final Diagnosis Bone marrow, aspirate, clot section, and core biopsy: - Plasma cell neoplasm (~90% of marrow cellularity). - See description. Peripheral blood smear: - Pancytopenia. - See description. 04/15/2025 1:59 PM CDT [facility] Amendment electronically signed by Miguel Suárez MD on 04/15/2025 at 1359 CDT at 1102 CDT AP Comment A Congo Red is pending, and results will be reported in an addendum. 04/15/2025 1:59 PM CDT [facility] Peripheral Smear Description RBC: macrocytic anemia. WBC: leukopenia with no circulating plasma cells. Platelets: decreased in number. 04/15/2025 1:59 PM CDT [facility] Bone Marrow Aspirate Differential count (200 cells): not performed due to hemodilution. Specimen quality: hemodilute. Spicules: absent. There is considerable hemodilution present on the aspirate smears. However, plasma cells are seen, showing cytologic atypia with large size, rare multinucleation, and nucleoli. Storage iron (by special stain): markedly decreased in this mostly plasma cell dominant clot section. 04/15/2025 1:59 PM [facility] Bone Marrow Core Biopsy and Clot Section Description Specimen quality: small with 0.8 cm of evaluable marrow. Cellularity: variable, ~50% Trilineage Hematopoiesis: Normal trilineage hematopoiesis is extensively replaced by a plasma cell infiltrate forming sheets, comprising ~90% of the marrow cellularity. Immunohistochemistry is performed on the core to assess staining cells in an architectural context: CD138 highlights the sheets of plasma cells (~90% of marrow cellularity). CD56 and CD33 (weak) are also co-expressed. CD34 is negative on plasma cells, and therefore, the positive staining by flow cytometry is likely non-specific. TdT, another blast marker is negative, as well. Clot section marrow particles: numerous. Clot section morphology: similar to core biopsy. CD34 and CD138 are also performed on the clot section, since staining may be more pronounced (due to lack of decalcification), but CD34 remains negative on CD138+ plasma cells. 04/15/2025 1:59 PM [facility] Flow Cytometry Summary Bone marrow, flow cytometry ([id number]): - Clonal kappa light chain restricted plasma cell population with aberrant CD34 and CD33 expression (~57% of overall events) 04/15/2025 1:59 PM [facility] Clinical History Multiple myeloma, new diagnosis. 04/15/2025 1:59 PM [facility] Materials Received Received are 23 slide(s) and 4 block(s) labeled [id number] along with a copy of the outside pathology report. [place] [address]. All original materials are returned to the referring institution, along with a copy of our final report. 04/15/2025 1:59 PM [facility] Pathologist Location at [facility] 04/15/2025 1:59 PM [facility] Disclaimer The performance characteristics of all immunohistochemical and indirect immunofluorescence stains (if any) cited in this report were determined by the Histopathology Laboratory of [facility]. Some of these tests were developed by our own laboratory and have not been cleared or approved by the US Food and Drug Administration. The FDA does not require this test to go through premarket FDA review. These tests are used for clinical purposes. They should not be regarded as investigational or for research. This laboratory is certified under the Clinical Laboratory Improvement Amendments (CLIA) as qualified to perform high complexity clinical laboratory testing. This case has been personally reviewed and interpreted by the attending (teaching) pathologist. 04/15/2025 1:59 PM CDT [facility] Addendum 1 The Congo Red is negative for amyloid deposition. Original diagnosis remains unchanged. 04/15/2025 1:59 PM CDT [facility] Addendum electronically signed by Miguel Suárez MD on 04/15/2025 at 1035 CDT Embedded Images 04/15/2025 1:59 PM CDT [facility] Pathology/Cytology BONE MARROW SPECIMEN / Unknown 04/09/2025 9:20 AM CDT 04/10/2025 2:41 PM CDT Miscellaneous samples (specimen) BONE MARROW SPECIMEN / Unknown 04/09/2025 9:20 AM CDT 04/10/2025 2:41 PM CDT Irving Wilson MD LAB - PATHO LOGY/CYTOLOGY ORDERABLES Edited Result - Final [facility] [address] [place] [address], [facility] [phone] from Last 3 Months Insurance [facility] MEDIC[facility] Care Teams Customer Experience Associate Relationship Specialty Start Date End Date Juan Nguyen MD PCP - General Internal Medicine 01/27/17
--- OUTSIDE RECORDS SUMMARY | 2025-04-28 13:51 | XMS_ITS | Encounter Summary ---
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
--- OUTSIDE RECORDS SUMMARY | 2025-04-28 13:51 | XMS_ITS | Encounter Summary ---
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
--- OUTSIDE RECORDS SUMMARY | 2025-04-28 13:51 | XMS_ITS | Encounter Summary ---
Author Organization [facility] Address [address] [place] [address] Care Team Providers Care Welding Equipment Sales Representative Name Role Phone Juan Nguyen MD Primary Care Provider +1- [phone] Encounter Details Date Type Department Care Team (Late st Contact Info) Description 04/10/2025 Lab Requisition [facility] - Pathology Lab [address] [place] [address] Irving Wilson MD [address] [place] [address] Illness, unspecified Social History Tobacco Use Types Packs/Day Years Used Date Smoking Tobacco: Former Cigarettes Smokeless Tobacco: Never Sex and Gender Information Value Date Recorded Sex Assigned at Not on file Legal Sex Male 10:33 AM CDT Gender Identity Not on file Sexual Orientation Not on file documented as of this encounter Plan of Treatment Not on file documented as of this encounter Procedures Procedure Name Priority Date/Time Associated Diagnosis Comments BONE MARROW BIOPSY (STL) Routine 04/09/2025 9:20 AM CDT Illness, unspecified documented in this encounter Results * BONE MARROW BIOPSY (STL) (04/09/2025 9:20 AM CDT) Case Report Bone Marrow Patholog y Report Case: [id number] Authorizing Provider: Irving Wilson Collected: 04/09/2025 09:20 AM MD Darrell Ordering Location: [facility] Physician [facility] - Received: 04/10/2025 02:41 PM Pathology Lab Pathologist: Miguel Suárez MD Specimens: A) - Bone Marrow Clot B) - Bone Marrow Core 04/15/2025 1:59 PM CDT [facility] Final Diagnosis Bone marrow, aspirate, clot section, and core biopsy: - Plasma cell neoplasm (~90% of marrow cellularity). - See description. Peripheral blood smear: - Pancytopenia. - See description. 04/15/2025 1:59 PM CDT [facility] Amendment electronically signed by Miguel Suárez MD on 04/15/2025 at 1359 CDT at 1102 CDT AP Comment A Congo Red is pending, and results will be reported in an addendum. 04/15/2025 1:59 PM CDT [facility] Peripheral Smear Description RBC: macrocytic anemia. WBC: leukopenia with no circulating plasma cells. Platelets: decreased in number. 04/15/2025 1:59 PM CDT [facility] Bone Marrow Aspirate Differential count (200 cells): not performed due to hemodilution. Specimen quality: hemodilute. Spicules: absent. There is considerable hemodilution present on the aspirate smears. However, plasma cells are seen, showing cytologic atypia with large size, rare multinucleation, and nucleoli. Storage iron (by special stain): markedly decreased in this mostly plasma cell dominant clot section. 04/15/2025 1:59 PM CDT [facility] Bone Marrow Core Biopsy [...] on CD138+ plasma cells. 04/15/2025 1:59 PM CDT [facility] Flow Cytometry Summary Bone marrow, flow cytometry ([id number]): - Clonal kappa light chain restricted plasma cell population with aberrant CD34 and CD33 expression (~57% of overall events) 04/15/2025 1:59 PM CDT [facility] Clinical History Multiple myeloma, new diagnosis. 04/15/2025 1:59 PM CDT [facility] Materials Received Received are 23 slide(s) and 4 block(s) labeled [id number] along with a copy of the outside pathology report. [place] [address]. All original materials are returned to the referring institution, along with a copy of our final report. 04/15/2025 1:59 PM CDT [facility] Pathologist Location at [facility] 04/15/2025 1:59 PM CDT [facility] Disclaimer The performance characteristics of all immunohistochemical and indirect immunofluorescence stains (if any) cited in this report were determined by the Histopathology Laboratory of [facility]. Some of these tests were developed by [...] attending (teaching) pathologist. 04/15/2025 1:59 PM CDT [facility] Addendum 1 The Congo Red [...] PATHO LOGY/CYTOLOGY ORDERABLES Edited Result - Final Performing Organization Address City/State/[facility] Co de Phone Number [facility] [address] [phone] documented in this encounter Visit Diagnoses Diagnosis Illness, unspecified documented in this encounter Care Teams Welding Equipment Sales Representative Relationship Specialty Start Date End Date Juan Nguyen MD PCP - General Internal Medicine 01/27/17 documented as of this encounter
--- OUTSIDE RECORDS SUMMARY | 2025-04-28 13:51 | XMS_ITS | Encounter Summary ---
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
--- OUTSIDE RECORDS SUMMARY | 2025-04-28 13:51 | XMS_ITS | Encounter Summary ---
Author Organization [facility] Address [address] [facility] [place] [address] Care Team Providers Care Flute Polisher Name Role Phone Juan Nguyen MD Primary Care Provider +1- [phone] Encounter Details Date Type Department Care Team (Late st Contact Info) Description 04/09/2025 Lab Requisition [facility] - Pathology Lab [address] [place] [address] Irving Wilson MD [address] [facility] [address] [address] [place] [address] Other pancytopenia (HCC) Social History Tobacco Use Types Packs/Day Years [...] Procedure Name Priority Date/Time Associated Diagnosis Comments FLOW CYTOMETRY BONE MARROW Routine 04/09/2025 9:20 AM CDT Other pancytopenia (HCC) documented in this encounter Results * FLOW CYTOMETRY BONE MARROW (04/09/2025 9:20 AM CDT) Case Report Flow Cytometry Case: [id number] Authorizing Provider: Irving Wilson Collected: 04/09/2025 09:20 AM MD Darrell Ordering Location: [facility] Physician [facility] - Received: 04/09/2025 12:46 PM Pathology Lab Pathologist: Miguel Suárez MD Specimen: Bone Marrow 04/10/2025 10:42 AM [facility] Final Diagnosis Bone marrow, flow cytometry: - Clonal kappa light chain restricted plasma cell population with aberrant CD34 and CD33 expression (~57% of overall events) 04/10/2025 10:42 AM [facility] at 1042 CDT Flow Cytometry [...] flow cytometry specimen has been reviewed for quality control engineer purposes. Review shows numerous atypical plasma cells, small, with occasional nucleolus. Histologic review of the bone marrow core will follow in a separate report. 04/10/2025 10:42 AM [facility] Flow Cytometry Results Differential Result Comment Flow Cell Count /uL 14,100 Total Viability % 87.0 Lymphocytes % 9 Dim CD45 Region % 66 Monocytes % 1 Granulocytes % 22 04/10/2025 10:42 AM [facility] Reason for test Other pancytopenia (HCC) 284.19 04/10/2025 10:42 AM [facility] Client Specimen ID # [id number] 04/10/2025 10:42 AM [facility] Number of markers 21 were performed. A-2 Flow CD10 A-3 Flow CD13 A-5 Flow CD20 A-13 Flow CD117 A-14 FLOW CD138 A-15 Flow CD15 A-16 Flow CD22 A-1 Flow CD5 A-4 Flow CD19 A-6 Flow CD33 A-7 Flow CD34 A-8 Flow CD45 A-11 Flow CD38 A-12 Flow CD56 A-20 cyCD22 A-21 nnEO80y A-9 [place]+CD19+ A-10 Lambda+CD19+ A-17 Flow MPO A-18 Flow TdT A-19 cyCD3 04/10/2025 10:42 AM [facility] Pathologist Location at [facility] 04/10/2025 10:42 AM CDT [facility] Disclaimer Test performed at [facility], [address] [place], [place], [address]. *The established laboratory minimum viability is 70%. [...] high complexity clinical testing. 04/10/2025 10:42 AM CDT [facility] Embedded Images 10:42 AM CDT [facility] Pathology/Cytolo gy BONE MARROW SPECIMEN / Unknown 04/09/2025 9:20 AM CDT 04/09/2025 12:46 PM CDT Irving Wilson MD LAB - PATHOLOGY/CYT OLOGY ORDERABLES Final Result [facility] [phone] documented in this encounter Visit Diagnoses Diagnosis Other pancytopenia (HCC) Other pancytopenia documented in this encounter Care Teams Flute Polisher Relationship Specialty Start Date End Date Juan Nguyen MD PCP - General Internal Medicine 01/27/17 documented as of this encounter
== END 2025-04-28 11:52 | disposition home or self-care (01) ==
PROVIDERS: PCP Internal Medicine; Visit Provider Internal Medicine Hematology & Oncology
DX: C90.00 Multiple myeloma not having achieved remission (principal)
CPT/HCPCS: 78815; A9552

== ENCOUNTER 2025-04-29 14:38 | Outpatient (CLI) | payer MEDICARE, OTHER, SELFPAY ==
--- OUTSIDE RECORDS SUMMARY | 2025-04-29 16:53 | XMS_ITS | Encounter Summary ---
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
--- OUTSIDE RECORDS SUMMARY | 2025-04-29 16:53 | XMS_ITS | Encounter Summary ---
Author Organization [facility] [employer] Address [address] [place] [address] Care Team Providers Care Continuing Education Director Name Role Phone Juan Nguyen MD Primary Care Provider Encounter Details Date Type Department Care Team (Late Contact Info) Description 04/29/2025 Orders Only [facility] Oncology and [facility] [address] [place] [address] Kirt Gonzalez MD [address] [place], [place] [id number] [employer] [address] [place] [phone] Need for hepatitis B screening test (Primary Dx) Social History Tobacco Use Types Packs/Day Years [...] as of this encounter Plan of Treatment Upcoming Encounters Date Type Department Care Team (Late st Contact Info) Description 05/25/2025 8:30 AM LIQUID COMPOUNDER Office Visit [facility] Oncology and Hematology [facility] [address] [place] [address] Kirt Gonzalez MD [address] [place] [phone] Scheduled Orders Name Type Priority Associated Diagnoses Orde r Schedule HEPATITIS B SURFACE ANTIGEN Lab Routine Need for hepatitis B screening test Expected: 04/29/2025, Expires: 04/29/2026 BLOOD BANK ANTIBODY SCREEN Blood Bank Routine Need for hepatitis B screening test Expected: 04/29/2025, Expires: 04/29/2026 documented as of this encounter Visit Diagnoses Diagnosis Need for hepatitis B screening test- Primary documented in this encounter Care Teams Continuing Education Director Relationship Specialty Start Date End Date Juan Nguyen MD [address] [place] [phone] PCP - General Internal Medicine 04/16/25 documented as of this encounter
--- OUTSIDE RECORDS SUMMARY | 2025-04-29 16:53 | XMS_ITS | Clinical Summary ---
Author Organization [facility] Giovanny paul [facility] Address [address] [facility] [place] [address] Care Team Providers Care Plant Health Care Technician Name Role Phone Juan Nguyen MD Primary [...] Encounters Date Type Department Care Team Description 04/29/2025 Orders Only [facility] Oncology and Hematology - [place] [address] [facility] [address] [place] [address] Kirt Gonzalez MD Need for hepatitis B screening test (Primary Dx) 04/21/2025 External Device Data [facility] [place] Provider, Abstract 04/21/2025 External Device Data [facility] [place] Provider, Abstract 04/21/2025 External Device Data [facility] [place] Provider, Abstract 04/21/2025 Specialty Pharmacy [facility] [address] [place] [address] [place] [address] Carissa Vilchis, PHARMACIST 04/20/2025 Telephone [facility] Oncology and Hematology - [place] [address] [place] [phone] Kirt Gonzalez MD Medication Review 04/20/2025 Specialty Pharmacy [facility] [address] [place] [address] Carissa Vilchis, PHARMACIST 04/16/2025 10:30 AM CDT Office Visit [facility] Oncology and Hematology - [place] [address] [place] [address] Kirt Gonzalez MD Multiple myeloma not having achieved remission (CMS/HCC) (Primary Dx) 04/15/2025 Orders Only [facility] Oncology and Hematology - [place] [address] [place] [phone] Kirt Gonzalez MD from Last 3 Months [...] 04/16/2025 10:21 AM CDT Plan of Treatment Upcoming Encounters Date Type Department Care Team (Late st Contact Info) Description 05/25/2025 8:30 AM FRAMEMAN Office Visit [facility] Oncology and Hematology - [place] [address] [facility] [address] [place] [address] Kirt Gonzalez MD [address] [facility] [address] [place] [address] Health Maintenance Due Date Last Done Comments [...] * PATHOLOGY (04/09/2025 12:24 PM CDT) Tissue Kirt Gonzalez MD PATHOLOGY/CYTOLOGY ORDERABLES F inal Result from Last 3 Months Insurance MEDICARE PART A AND B [facility] RX [employer] RX Member Subscriber Plan / Payer (Ef fective 2025-Present) Name:Ramon Mendoza Relation to Subscriber:Self Name:Ramon Mendoza Payer ID:Not on file Group ID:[id number] Type:RX Commercial Address: [address] Care Teams Plant Health Care Technician Relationship Specialty Start Date End Date Juan Nguyen MD [address] [place] [address] PCP - General Internal Medicine 04/16/25
--- OUTSIDE RECORDS SUMMARY | 2025-04-29 16:53 | XMS_ITS | Encounter Summary ---
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
--- OUTSIDE RECORDS SUMMARY | 2025-04-29 16:53 | XMS_ITS | Encounter Summary ---
Author Organization [facility] Address [address] [facility] [place] [address] Care Team Providers Care Hangar Attendant Name Role Phone Juan Nguyen MD Primary Care Provider +1- [phone] Encounter Details Date Type Department Care Team (Late st Contact Info) Description 04/10/2025 Lab Requisition [facility] - Pathology Lab [address] [place] [address] Irving Wilson MD [address] [place] [address] Illness, unspecified Social History Tobacco Use [...] Report Bone Marrow Patholog y Report Case: [id number] Authorizing Provider: Irving Wilson Collected: 04/09/2025 09:20 AM MD Darrell Ordering Location: [facility] Physician [facility] - Received: 04/10/2025 02:41 PM Pathology Lab Pathologist: Miguel Suárez MD Specimens: A) - Bone Marrow Clot B) - Bone Marrow Core 04/15/2025 1:59 PM CDT [facility] Final Diagnosis Bone marrow, aspirate, clot section, and core biopsy: - Plasma cell neoplasm (~90% of marrow cellularity). - See description. Peripheral blood smear: - Pancytopenia. - See description. 04/15/2025 1:59 PM CDT [facility] Amendment electronically signed by Miguel Suárez MD on 04/15/2025 at 1359 CDT at 1102 CDT AP Comment A Congo Red is pending, and results will be reported in an addendum. 04/15/2025 1:59 PM CDT [facility] Peripheral Smear Description RBC: macrocytic anemia. WBC: leukopenia with no circulating plasma cells. Platelets: decreased in number. 04/15/2025 1:59 PM CDT [facility] Bone Marrow [...] dominant clot section. 04/15/2025 1:59 PM CDT [facility] Bone Marrow [...] CD138+ plasma cells. 04/15/2025 1:59 PM CDT [facility] Flow Cytometry Summary Bone marrow, flow cytometry ([id number]): - Clonal kappa light chain restricted plasma cell population with aberrant CD34 and CD33 expression (~57% of overall events) 04/15/2025 1:59 PM CDT [facility] Clinical History Multiple myeloma, new diagnosis. 04/15/2025 1:59 PM CDT [facility] Materials Received Received are 23 slide(s) and 4 block(s) labeled [id number] along with a copy of the outside pathology report. [place] [address]. All original materials are returned to the referring institution, along with a copy of our final report. 04/15/2025 1:59 PM CDT [facility] Pathologist Location at [facility] 04/15/2025 1:59 PM CDT [facility] Disclaimer The performance characteristics of all immunohistochemical and indirect immunofluorescence stains (if any) cited in this report were determined by the Histopathology Laboratory of [facility]. Some of these tests were developed [...] Edited Result - Final Performing Organization Address City/State/[facility] Co de Phone Number [facility] [address] [phone] documented in this encounter Visit Diagnoses Diagnosis Illness, unspecified documented in this encounter Care Teams Hangar Attendant Relationship Specialty Start Date End Date Juan Nguyen MD PCP - General Internal Medicine 01/27/17 documented as of this encounter
--- OUTSIDE RECORDS SUMMARY | 2025-04-29 16:53 | XMS_ITS | Encounter Summary ---
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
--- OUTSIDE RECORDS SUMMARY | 2025-04-29 16:53 | XMS_ITS | Clinical Summary ---
Author Organization [facility] Address [address] [place] [address] Care Team Providers Care Grain Buyer Name Role Phone Juan Nguyen MD Primary Care Provider +1- [phone] Allergies No known active allergies Medications aspirin [...] (07/29/2021): Added automatically from request for surgery [id number] Bilateral hand pain 12/31/2019 Chronic pain of both knees 12/31/2019 Obesity 11/06/2017 Obstructive sleep apnea 03/14/2017 Gout 02/23/2017 Spinal stenosis of lumbar region 08/17/2016 Herniated lumbar intervertebral disc 08/04/2016 Numbness of lower extremity 08/04/2016 Lumbar radiculopathy 08/04/2016 Tetralogy of Fallot s/p repair 09/01/2010 Encounters Date Type Department Care Team Description 04/09/2025 Orders Only [facility] [address] [place] [address] Juan Nguyen MD 03/23/2025 Results Follow-Up [facility] [address] [address] Juan Nguyen MD Reticulocyte Count 03/23/[address] [facility] [address] [address] Juan Nguyen MD Normocytic anemia after acute hemorrhage (Primary Dx) 03/20/2025 1:29 PM CDT - 03/20/2025 11:59 PM CDT Hospital Encounter [address] [address] Normocytic anemia Discharge Disposition: Discharge to home or self care 03/20/2025 Results Follow-Up [facility] [address] [address] Juan Nguyen MD POCT UA, AUTO W/O SCOPE, POCT hemoglobin A1c, POCT lipid panel, Additional followed-up results: 3 03/20/[address] [facility] [address] [address] Juan Nguyen MD Normocytic anemia (Primary Dx) 03/19/2025 10:00 AM CDT Office Visit [facility] [address] [address] Juan Nguyen MD Encounter for Medicare annual wellness exam (Primary Dx); S/P colonoscopy: neg 2021; Lumbar radiculopathy; Memory loss; Obstructive sleep apnea; Idiopathic gout, unspecified chronicity, unspecified site; Tetralogy of Fallot s/p repair; BMI 27.0-27.9,adult 03/09/2025 12:00 PM CDT - 03/09/2025 11:59 PM CDT Hospital Encounter [facility]) [address] [place] [address], [place] [address] Discharge Disposition: Discharge to home or self care 03/09/2025 11:59 AM CDT - 03/09/2025 11:59 PM CDT Hospital Encounter [facility] ([facility]) [address] [place] [address] Memory loss Discharge Disposition: Discharge to home or self care 02/16/2025 1:08 PM CDT - 02/16/2025 11:59 PM CDT Hospital Encounter [facility] ([facility]) [address] [place] [address] Discharge Disposition: Discharge to home or self care 02/16/2025 1:08 PM CDT - 02/16/2025 11:59 PM CDT Hospital Encounter [facility] ([facility]) [address] [place] [address] Memory loss Discharge Disposition: Discharge to home or self care 02/10/[address] 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 Gender Identity Not on file Sexual Orientation [...] CDT Respiratory Rate 15 09/13/2021 3:47 PM CARPENTER APPRENTICE Oxygen Saturation 100% 03/19/2025 9:57 AM CDT [...] CDT Memory loss COLONOSCOPY 09/13/2021 3:00 PM CARPENTER APPRENTICE from Last 3 Months or Most Recently [...] BLOOD ORDERABLES Final Result MICAH WALTERS [facility] Department [place] [address] * (ABNORMAL) Iron profile w/ IBC (03/20/2025 8:08 AM CDT) Iron 61.5 59.0 - 158.0 ug/dL [facility] Total Iron Binding Capacity 366.0 ug/dL [facility] Unsaturated Iron Binding Capacity 304.5 112.0 - 346.0 ug/dL [facility] % Iron Saturation 16.8(L) 25.0 - 45.0 % [facility] Blood 03/20/2025 8:08 AM CDT 03/20/2025 8:15 AM CDT Juan Nguyen MD LAB BLOOD ORDERABLES Final Result Performing Organization Address City/[facility]/ZIP Co de Phone Number [address] [place] [address] * Vitamin B12 (03/20/2025 8:08 AM CDT) Pathologist [facility] Vitamin B12 415 232 - 1,245 pg/mL [facility] Blood 03/20/2025 8:08 AM CDT 03/20/2025 8:15 AM CDT Juan Nguyen MD LAB BLOOD ORDERABLES Final Result Performing Organization Address [facility] Co de Phone Number [address] * POCT UA, AUTO W/O SCOPE (03/19/2025 10:46 AM CDT) Color, Urine, POC Yellow Clarity, ur, POC Clear Clear Glucose, ur, POC Negative Negative Bilirubin, ur, POC Negative Negative Ketones, ur, POC Negative Negative Specific [place], POC 1.010 1.003 - 1.030 Blood, ur, [...] BLOOD ORDERABLES Final Result [facility]IG[facility] [address] [place] [id number] * (ABNORMAL) CBC with auto differential (03/19/2025 [...] BLOOD ORDERABLES Final Result [facility] [address] [phone] * (ABNORMAL) Comprehensive metabolic panel (03/19/2025 10:19 [...] BLOOD ORDERABLES Final Result [facility] [address] [address] * (ABNORMAL) POCT lipid panel (03/19/2025 10:10 [...] Result * Tau PET Brain Imaging [facility] Research Study (REQUIRED) (03/09/2025 3:28 [...] TAU-PET/CT IMAGING DATE OF STUDY: 03/09/2025 SCANNER: Hiddenbed N PET Vision (NV1). This is a [...] TAU-PET/CT IMAGING DATE OF STUDY: 03/09/2025 SCANNER: [employer] N PET Vision (NV1). This is a [...] signed by: Beth Arredondo M.D. Carlos Granados POLICE CAPTAIN SENIOR IMG PET PROCEDURES Final Result * Amyloid PET Brain Imaging for [facility] Research Study (02/16/2025 2:44 PM CDT) Anatomical [...] clinical practice. Reference: Centiloid recommendations for clinical yefhlmd-dl-yug from the AMYPAD consortium PMCID: [id number] DOI:10.1002/alz.68734 General comments on amyloid-PET interpretation: A negative [...] AMYLOID-PET/CT IMAGING DATE OF STUDY: 02/16/2025 SCANNER: Hiddenbed NowForce (NV1). RADIOPHARMACEUTICAL: 11.8 mCi F-18 florbetapir i.v. [...] performed. The study was interpreted on the BioTrove workstation. Galaxy Digital semiquantitative software and Blossom software was used for centiloid quantification of [...] AMYLOID-PET/CT IMAGING DATE OF STUDY: 02/16/2025 SCANNER: [employer]bed N PET Vision (NV1). RADIOPHARMACEUTICAL: 11.8 mCi [...] performed. The study was interpreted on the BioTrove workstation. Galaxy Digital semiquantitative software and Blossom software was used for centiloid quantification of [...] clinical practice. Reference: Centiloid recommendations for clinical hnrgaye-mg-mrr from the AMYPAD consortium PMCID: [id number] DOI:10.1002/alz.22681 General comments on amyloid-PET interpretation: A negative [...] by: Va Corado M.D. us Carlos Granados POLICE CAPTAIN SENIOR IMG PET PROCEDURES Final Result * COLONOSCOPY (09/13/2021 3:00 PM CARPENTER APPRENTICE) Anatomical Region Laterality Modality Other Narrative Procedure Note Uri Hodges MD PhD - 09/13/2021 3:00 PM [facility] Patient Name: Ramon Mendoza Procedure Date: 09/13/2021 3:00 PM Date of : 1960 Admit Type: Outpatient Age: 61 Gender: Male Attending MD: Uri Hodges MD,PHD Room: [facility] ENDOSCOPY ROOM 8 Note Status: Finalized Procedure: [...] scope was passed under direct vision.The CF [id number] endoscope was introduced through the anus and advanced to the cecum, identified by appendiceal orifice and ileocecal valve. The colonoscopy was performed without difficulty. The patient tolerated the procedure well. The qualityof the bowel preparation was excellent. The quality of the bowel preparation was evaluated using the BBPS (Wellington Bowel Preparation Scale) with scores of:Right Colon [...] On: 09/13/2021 3:00 PM Recognized by the [place] for promoting quality in endoscopy Uri Hodges MD PhD ENDOSCOPY PROCEDURES Chelle l Result from Last 3 Months or Most Recently Relevant to Health Maintenance Insurance [facility] CHOICE PLUS MEDICARE [facility] CHOICE PLUS [place] [id number] MEDICARE [facility] Advance Directives For more information, please contact: [phone] * Full Code (Latest Code Status on File) Date Activated Date Inactivated Comments 09/13/2021 2:27 PM 09/13/2021 8:09 PM Care Teams Grain Buyer Relationship Specialty Start Date End Date Juan Nguyen MD PCP - General 10/30/16
--- OUTSIDE RECORDS SUMMARY | 2025-04-29 16:53 | XMS_ITS | Encounter Summary ---
Author Organization [facility] Address [address] [facility] [place] [address] Care Team Providers Care Marble Supervisor Name Role Phone Juan Nguyen MD Primary Care Provider +1- [phone] Encounter Details Date Type Department Care Team (Late st Contact Info) Description 04/09/2025 Lab Requisition [facility] - Pathology Lab [address] [place] [address] Irving Wilson MD [address] [facility] [address] [place] [address] Other pancytopenia (HCC) Social History Tobacco [...] AM CDT) Case Report Flow Cytometry Case: [id number] Authorizing Provider: Irving Wilson Collected: 04/09/2025 09:20 AM MD Darrell Ordering Location: [facility] - Received: 04/09/2025 12:46 PM Pathology Lab Pathologist: Miguel Suárez MD Specimen: Bone Marrow 04/10/2025 10:[address] [facility] Final Diagnosis Bone marrow, flow cytometry: - Clonal kappa light chain restricted plasma cell population with aberrant CD34 and CD33 expression (~57% of overall events) 04/10/2025 10:[address] [facility] at 1042 CDT Flow [...] flow cytometry specimen has been reviewed for business quality assurance analyst purposes. Review shows numerous atypical plasma cells, small, with occasional nucleolus. Histologic review of the bone marrow core will follow in a separate report. 04/10/2025 10:[address] [facility] Flow Cytometry Results Differential Result Comment Flow Cell Count /uL 14,100 Total Viability % 87.0 Lymphocytes % 9 Dim CD45 Region % 66 Monocytes % 1 Granulocytes % 22 04/10/2025 10:[address] [facility] Reason for test Other pancytopenia (HCC) 284.19 04/10/2025 10:[address] [facility] Client Specimen ID # [id number] 04/10/2025 10:[address] [facility] Number of markers 21 were performed. A-2 Flow CD10 A-3 Flow CD13 A-5 Flow CD20 A-13 Flow CD117 A-14 FLOW CD138 A-15 Flow CD15 A-16 Flow CD22 A-1 Flow CD5 A-4 Flow CD19 A-6 Flow CD33 A-7 Flow CD34 A-8 Flow CD45 A-11 Flow CD38 A-12 Flow CD56 A-20 cyCD22 A-21 [id number] A-9 Goodwin+CD19+ A-10 Lambda+CD19+ A-17 Flow MPO A-18 Flow TdT A-19 cyCD3 04/10/2025 10:[address] [facility] Pathologist Location at [facility] 04/10/2025 10:42 AM CDT [facility] Disclaimer Test performed at [facility], [address] [place], [place], [address]. *The established laboratory minimum viability is 70%. [...] complexity clinical testing. 04/10/2025 10:42 AM CDT [facility] Embedded Images 10:42 AM CDT [facility] Pathology/Cytolo gy BONE MARROW SPECIMEN / Unknown 04/09/2025 9:20 AM CDT 04/09/2025 12:46 PM CDT Irving Wilson MD LAB - PATHOLOGY/CYT OLOGY ORDERABLES Final Result [facility]. [address] [phone] documented in this encounter Visit Diagnoses Diagnosis Other pancytopenia (HCC) Other pancytopenia documented in this encounter Care Teams Marble Supervisor Relationship Specialty Start Date End Date Juan Nguyen MD PCP - General Internal Medicine 01/27/17 documented as of this encounter
--- OUTSIDE RECORDS SUMMARY | 2025-04-29 16:53 | XMS_ITS | Encounter Summary ---
Author Organization [facility] Address [address] [place] [address] Phone Care Team Providers Care Product Architect Name Role Phone Juan Nguyen MD Primary Care Provider +1- [phone] Encounter Details Date Type Department Care Team (Late st Contact Info) Description 12/17/2017 Therapy [facility] Medicine General Neurology [address] [facility] 6th [address] [place] [phone] Jess Davis MA Social History Tobacco Use Types Packs/Day Years Used Date Smoking Tobacco: Former Sex and Gender Information Value Date Recorded Sex Assigned at Not on file 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
--- OUTSIDE RECORDS SUMMARY | 2025-04-29 16:53 | XMS_ITS | Clinical Summary ---
Author Organization [facility] Address [address] [place] [address] Care Team Providers Care Indirect Fire Infantryman Name Role Phone Juan Nguyen MD Primary Care Provider +1- [phone] Source Comments [facility],non-owned Affiliates and Associated Physician Practices is amultiple site organization consisting of ambulatory clinics and hospital sitesin [place], [place], [place] and [place]. This disclosure is being madepursuant to the Care Everywhere program and may not contain all information available regarding this patient. Last updated 18.[facility] Allergies No known active allergies Medications * [...] [facility] - Pathology Lab [address] [place] [address] Irving Wilson MD Illness, unspecified 04/09/2025 Lab Requisition [facility] - Pathology Lab [address] [place] [address] Irving Wilson MD Other pancytopenia (HCC) from [...] AM CDT) Case Report Flow Cytometry Case: [id number] Authorizing Provider: Irving Wilson Collected: 04/09/2025 09:20 AM MD Darrell Ordering Location: [facility] - Received: 04/09/2025 12:46 PM Pathology Lab Pathologist: Miguel Suárez MD Specimen: Bone Marrow 04/10/2025 10:42 AM CDT [facility] Final Diagnosis Bone marrow, flow cytometry: - Clonal kappa light chain restricted plasma cell population with aberrant CD34 and CD33 expression (~57% of overall events) 04/10/2025 10:42 AM CDT [facility] at 1042 CDT Flow Cytometry [...] flow cytometry specimen has been reviewed for water quality control engineer purposes. Review shows numerous [...] 1 Granulocytes % 22 04/10/2025 10:42 AM [facility] Reason for test Other pancytopenia (HCC) 284.19 04/10/2025 10:42 AM [facility] Client Specimen ID # [id number] 04/10/2025 10:42 AM [facility] Number of markers 21 were performed. A-2 Flow CD10 A-3 Flow CD13 A-5 Flow CD20 A-13 Flow CD117 A-14 FLOW CD138 A-15 Flow CD15 A-16 Flow CD22 A-1 Flow CD5 A-4 Flow CD19 A-6 Flow CD33 A-7 Flow CD34 A-8 Flow CD45 A-11 Flow CD38 A-12 Flow CD56 A-20 cyCD22 A-21 [id number] A-9 [place]+CD19+ A-10 Lambda+CD19+ A-17 Flow MPO A-18 Flow TdT A-19 cyCD3 04/10/2025 10:42 AM [facility] Pathologist Location at [facility] 04/10/2025 10:42 AM [facility] Disclaimer Test performed at [facility], [address] [place] [address], [address]. *The established laboratory minimum viability is 70%. [...] high complexity clinical testing. 04/10/2025 10:42 AM [facility] Embedded Images 10:42 AM [facility] Pathology/Cytolo gy BONE MARROW SPECIMEN / Unknown 04/09/2025 9:20 AM CDT 04/09/2025 12:46 PM CDT Irving Wilson MD LAB - PATHOLOGY/CYT OLOGY ORDERABLES Final Result [facility] [address] [place] [address], [facility] [phone] * BONE MARROW BIOPSY (STL) (04/09/2025 9:20 AM CDT) Case Report Bone Marrow Patholog y Report Case: [id number] Authorizing Provider: Irving Wilson Collected: 04/09/2025 09:20 AM MD Darrell Ordering Location: [facility] - Received: 04/10/2025 02:41 PM Pathology Lab Pathologist: Miguel Suárez MD Specimens: A) - Bone Marrow Clot B) - Bone Marrow Core 04/15/2025 1:59 PM CDT [facility] Final Diagnosis Bone marrow, aspirate, clot section, and core biopsy: - Plasma cell neoplasm (~90% of marrow cellularity). - See description. Peripheral blood smear: - Pancytopenia. - See description. 04/15/2025 1:59 PM CDT [facility] Amendment electronically signed by Miguel Suárez MD on 04/15/2025 at 1359 CDT at 1102 CDT AP Comment A Congo Red is pending, and results will be reported in an addendum. 04/15/2025 1:59 PM CDT [facility] Peripheral Smear Description RBC: macrocytic anemia. WBC: leukopenia with no circulating plasma cells. Platelets: decreased in number. 04/15/2025 1:59 PM CDT [facility] Bone Marrow Aspirate Differential count (200 cells): not performed due to hemodilution. Specimen quality: hemodilute. Spicules: absent. There is considerable hemodilution present on the aspirate smears. However, plasma cells are seen, showing cytologic atypia with large size, rare multinucleation, and nucleoli. Storage iron (by special stain): markedly decreased in this mostly plasma cell dominant clot section. 04/15/2025 1:59 PM [facility] Bone Marrow Core Biopsy [...] on CD138+ plasma cells. 04/15/2025 1:59 PM [facility] Flow Cytometry Summary Bone marrow, flow cytometry ([id number]): - Clonal kappa light chain restricted plasma cell population with aberrant CD34 and CD33 expression (~57% of overall events) 04/15/2025 1:59 PM [facility] Clinical History Multiple myeloma, new diagnosis. 04/15/2025 1:59 PM [facility] Materials Received Received are 23 slide(s) and 4 block(s) labeled [id number] along with a copy of the outside pathology report. [place] [address]. All original materials are returned to the referring institution, along with a copy of our final report. 04/15/2025 1:59 PM [facility] Pathologist Location at [facility] 04/15/2025 1:59 PM [facility] Disclaimer The performance characteristics of all immunohistochemical and indirect immunofluorescence stains (if any) cited in this report were determined by the Histopathology Laboratory of [facility]. Some of these tests were [...] attending (teaching) pathologist. 04/15/2025 1:59 PM CDT [facility] Addendum 1 The Congo Red [...] PATHO LOGY/CYTOLOGY ORDERABLES Edited Result - Final [facility] [address] [facility] [place] [address], [facility] [phone] from Last 3 Months Insurance [facility] MEDICARE Care Teams Indirect Fire Infantryman Relationship Specialty Start Date End Date Juan Nguyen MD PCP - General Internal Medicine 01/27/17
[2025-04-29 18:16] LABS: Hepatitis B Surface Antigen Negative (Negative)
== END 2025-04-29 14:39 | disposition home or self-care (01) ==
LOC: ANHLAB 14:39
PROVIDERS: PCP Internal Medicine; Visit Provider Internal Medicine Hematology & Oncology
DX: Z11.59 Encounter for screening for other viral diseases (principal)
CPT/HCPCS: 36415; 86850; 86900; 86901; 87340

== ENCOUNTER 2025-06-15 13:10 | Outpatient (CLI) | payer MEDICARE, OTHER, SELFPAY ==
--- OUTSIDE RECORDS SUMMARY | 2025-06-15 14:17 | XMS_ITS | Encounter Summary ---
Author Organization [facility] Address [address] [place] [address] Care Team Providers Care Principal Cloud Architect Name Role Phone Juan Nguyen MD Primary Care Provider +1- [phone] Encounter Details Date Type Department Care Team (Late st Contact Info) Description 04/09/2025 Lab Requisition [facility] - Pathology Lab [address] [place] [address] Irving Wilson MD [address] [facility] [address] [place] [address] Other pancytopenia (HCC) Social History Tobacco [...] AM CDT) Case Report Flow Cytometry Case: [id number] Authorizing Provider: Irving Wilson Collected: 04/09/2025 09:20 AM MD Darrell Ordering Location: [facility] Physician [facility] - Received: 04/09/2025 12:46 PM Pathology Lab Pathologist: Miguel Suárez MD Specimen: Bone Marrow 04/10/2025 10:42 AM [facility] Final Diagnosis Bone marrow, flow cytometry: - Clonal kappa light chain restricted plasma cell population with aberrant CD34 and CD33 expression (~57% of overall events) 04/10/2025 10:42 AM [facility] at 1042 CDT Flow Cytometry [...] flow cytometry specimen has been reviewed for air quality specialist purposes. Review shows numerous atypical plasma cells, small, with occasional nucleolus. Histologic review of the bone marrow core will follow in a separate report. 04/10/2025 10:42 AM [facility] Flow Cytometry Results Differential Result Comment Flow Cell Count /uL 14,100 Total Viability % 87.0 Lymphocytes % 9 Dim CD45 Region % 66 Monocytes % 1 Granulocytes % 22 04/10/2025 10:42 AM [facility] Reason for test Other pancytopenia (HCC) 284.19 04/10/2025 10:42 AM [facility] Client Specimen ID # [id number] 04/10/2025 10:42 AM [facility] Number of markers 21 were performed. A-2 Flow CD10 A-3 Flow CD13 A-5 Flow CD20 A-13 Flow CD117 A-14 FLOW CD138 A-15 Flow CD15 A-16 Flow CD22 A-1 Flow CD5 A-4 Flow CD19 A-6 Flow CD33 A-7 Flow CD34 A-8 Flow CD45 A-11 Flow CD38 A-12 Flow CD56 A-20 cyCD22 A-21 [id number] A-9 Dahlgren+CD19+ A-10 Lambda+CD19+ A-17 Flow MPO A-18 Flow TdT A-19 cyCD3 04/10/2025 10:42 AM [facility] Pathologist Location at [facility] 04/10/2025 10:42 AM CDT [facility] Disclaimer Test performed at [facility] [place] [facility], [address] [place], [place], [address]. *The established laboratory minimum viability is 70%. [...] complexity clinical testing. 04/10/2025 10:42 AM CDT [facility] Embedded Images 10:42 AM CDT [facility] Pathology/Cytolo gy BONE MARROW SPECIMEN / Unknown 04/09/2025 9:20 AM CDT 04/09/2025 12:46 PM CDT Irving Wilson MD LAB - PATHOLOGY/CYT OLOGY ORDERABLES Final Result [facility]. [address] [phone] documented in this encounter Visit Diagnoses Diagnosis Other pancytopenia (HCC) Other pancytopenia documented in this encounter Care Teams Principal Cloud Architect Relationship Specialty Start Date End Date Juan Nguyen MD PCP - General Internal Medicine 01/27/17 documented as of this encounter
--- OUTSIDE RECORDS SUMMARY | 2025-06-15 14:17 | XMS_ITS | Encounter Summary ---
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
--- OUTSIDE RECORDS SUMMARY | 2025-06-15 14:17 | XMS_ITS | Clinical Summary ---
Author Organization [facility] Address [address] [place] [address] Care Team Providers Care Registered Veterinary Technician Name Role Phone Juan Nguyen MD Primary Care Provider +1- [phone] Allergies No known active allergies Medications aspirin [...] (07/29/2021): Added automatically from request for surgery [id number] Bilateral hand pain 12/31/2019 Chronic pain of both knees 12/31/2019 Obesity 11/06/2017 Obstructive sleep apnea 03/14/2017 Gout 02/23/2017 Spinal stenosis of lumbar region 08/17/2016 Herniated lumbar intervertebral disc 08/04/2016 Numbness of lower extremity 08/04/2016 Lumbar radiculopathy 08/04/2016 Tetralogy of Fallot s/p repair 09/01/2010 Encounters Date Type Department Care Team Description 05/04/2025 Telephone [facility] [address] 6th [address] [place] [address] Carlos Granados NP 05/01/2025 Orders Only [facility] [address] [place] [address] [place] [phone] Juan Nguyen MD 04/09/2025 Orders Only [facility] [address] [place] [phone] Juan Nguyen MD 03/23/2025 Results Follow-Up [facility] [address] [phone] Juan Nguyen MD Reticulocyte Count 03/23/2025 Orders Only [facility] [address] [place] [phone] Juan Nguyen MD Normocytic anemia after acute hemorrhage (Primary Dx) 03/20/2025 1:29 PM CDT - 03/20/2025 11:59 PM CDT Hospital Encounter [facility] [address] [place] [address] Normocytic anemia Discharge Disposition: Discharge to home or self care 03/20/2025 Results Follow-Up [facility] [address] [place] [address] [place] [phone] Juan Nguyen MD POCT UA, AUTO W/O SCOPE, POCT hemoglobin A1c, POCT lipid panel, Additional followed-up results: 3 03/20/2025 Orders Only [facility] [address] [place] [phone] Juan Nguyen MD Normocytic anemia (Primary Dx) 03/19/2025 10:00 AM CDT Office Visit [facility] [address] [place] [address] [place] [phone] Juan Nguyen MD Encounter for Medicare annual wellness exam (Primary Dx); S/P colonoscopy: neg 2021; Lumbar radiculopathy; Memory loss; Obstructive sleep apnea; Idiopathic gout, unspecified chronicity, unspecified site; Tetralogy of Fallot s/p repair; BMI 27.0-27.9,adult from Last 3 Months Immunizations Immunization Administration [...] on file 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 Gender Identity Not on file Sexual Orientation Not on file 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 on file Not on file Not on file Last Filed Vital Signs Vital Sign Reading Time Taken Comments Blood Pressure 158/71 03/19/2025 9:57 AM CDT Pulse 88 03/19/2025 9:57 AM CDT Temperature 37.2 C (99 F) 09/23/2024 1:14 PM CDT Respiratory Rate 15 09/13/2021 3:47 PM HOT METAL MIXER OPERATOR Oxygen Saturation 100% 03/19/2025 9:57 AM CDT [...] Priority Date/Time Associated Diagnosis Comments SCAN - RADIOLOGY/IMAGING 05/01/2025 1:15 PM CDT SCAN - PATHOLOGY 04/09/2025 4:01 PM CDT [...] CDT Encounter for Medicare annual wellness exam COLONOSCOPY 09/13/2021 3:00 PM HOT METAL MIXER OPERATOR from Last 3 Months or Most Recently Relevant to Health Maintenance Results * SCAN - RADIOLOGY/IMAGING (05/01/2025 1:15 PM CDT) Anatomical Region Laterality Modality Other Juan Nguyen MD Final Resu lt * SCAN - PATHOLOGY (04/09/2025 4:01 PM CDT) Juan Nguyen MD Final Resu lt * (ABNORMAL) Reticulocyte Count (03/20/2025 8:17 AM CDT) Retics, absolute 96(H) 20 - 87 K/cumm Retics 3.9(H) 0.4 - 2.9 % [facility] Reticulocyte Hgb 33.3 30.5 - 38.0 pg [facility] Blood 03/20/2025 8:17 AM CDT 03/20/2025 2:40 PM CDT Juan Nguyen MD LAB BLOOD ORDERABLES Final Result [facility] [place] [address] * (ABNORMAL) Iron profile w/ IBC (03/20/2025 8:08 AM CDT) Iron 61.5 59.0 - 158.0 ug/dL [facility] Total Iron Binding Capacity 366.0 ug/dL [facility] Unsaturated Iron Binding Capacity 304.5 112.0 - 346.0 ug/dL [facility] % Iron Saturation 16.8(L) 25.0 - 45.0 % [facility] Blood 03/20/2025 8:08 AM CDT 03/20/2025 8:15 AM CDT Juan Nguyen MD LAB BLOOD ORDERABLES Final Result [facility] [address] [phone] * Vitamin B12 (03/20/2025 8:08 AM CDT) Vitamin B12 415 232 - 1,245 pg/mL [facility] Blood 03/20/2025 8:08 AM CDT 03/20/2025 8:15 AM CDT Juan Nguyen MD LAB BLOOD ORDERABLES Final Result [facility] [address] [facility] [address] [place], [place] [id number] * POCT UA, AUTO W/O SCOPE (03/19/2025 10:46 AM CDT) Pathologist [facility] Color, Urine, POC Yellow Clarity, ur, POC Clear Clear Glucose, ur, POC Negative Negative Bilirubin, ur, POC Negative Negative Ketones, ur, POC Negative Negative Specific [place], POC 1.010 1.003 - 1.030 Blood, ur, [...] * PSA screen (03/19/2025 10:19 AM CDT) [facility] PSA, Total 0.4 0.0 - 4.0 ng/mL [facility] Blood 03/19/2025 10:1 9 AM CDT 03/19/2025 10:36 AM CDT Juan Nguyen MD LAB BLOOD ORDERABLES Final Result Performing Organization Address [facility] Co de Phone Number [facility] [address] [facility] [address] * (ABNORMAL) CBC with auto differential (03/19/2025 10:19 AM CDT) [facility] WBC 3.2(L) 3.5 - 10.0 K/uL [facility] RBC 2.53(L) 4.60 - 6.20 M/uL [facility] Hemoglobin 8.6(L) 13.9 - 17.7 g/dL [facility] Hematocrit 24.9(L) 35.0 - 55.0 % [facility] [...] 9 AM CDT 03/19/2025 10:36 AM CDT us Juan Nguyen MD LAB BLOOD ORDERABLES Final Result [facility] [address] [phone] * (ABNORMAL) Comprehensive metabolic panel (03/19/2025 10:19 AM CDT) Pathologist [facility] Glucose 105 74 - 200 mg/dL [facility] [...] BLOOD ORDERABLES Final Result [facility] [address] [phone] * (ABNORMAL) POCT lipid panel (03/19/2025 10:10 [...] CARE TEST ORDERAB LES Final Result * COLONOSCOPY (09/13/2021 3:00 PM HOT METAL MIXER OPERATOR) Anatomical Region Laterality Modality Other Narrative Procedure Note Uri Hodges MD PhD - 09/13/2021 3:00 PM [facility] Patient Name: Ramon Mendoza Procedure Date: 09/13/2021 3:00 PM Date of : 1960 Admit Type: Outpatient Age: 61 Gender: Male Attending MD: Uri Hodges MD,PHD Room: [facility] ENDOSCOPY ROOM 8 Note Status: Finalized Procedure: [...] The scope was passed under direct vision.The [id number] endoscope was introduced through the anus and advanced to the cecum, identified by appendiceal orifice and ileocecal valve. The colonoscopy was performed without difficulty. The patient tolerated the procedure well. The qualityof the bowel preparation was excellent. The quality of the bowel preparation was evaluated using the BBPS ([place] Bowel Preparation Scale) with scores of:Right Colon [...] On: 09/13/2021 3:00 PM Recognized by the [place] [employer] [employer] for promoting quality in endoscopy us Uri Hodges MD PhD ENDOSCOPY PROCEDURES Chelle l Result from Last 3 Months or Most Recently Relevant to Health Maintenance Insurance [facility] CHOICE PLUS MEDICARE [facility] CHOICE PLUS [facility] CHOICE PLUS MEDICARE [employer] [facility] Advance Directives For more information, please contact: [phone] * Full Code (Latest Code Status on File) Date Activated Date Inactivated Comments 09/13/2021 2:27 PM 09/13/2021 8:09 PM Care Teams Registered Veterinary Technician Relationship Specialty Start Date End Date Juan Nguyen MD [facility] - General 10/30/16
--- OUTSIDE RECORDS SUMMARY | 2025-06-15 14:17 | XMS_ITS | Encounter Summary ---
Author Organization [facility] Address [address] [place] [address] Phone Care Team Providers Care Film Laboratory Technician Name Role Phone Juan Nguyen MD Primary Care Provider +1- [phone] Encounter Details Date Type Department Care Team (Late st Contact Info) Description 12/17/2017 Therapy [facility] Medicine General Neurology 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
--- OUTSIDE RECORDS SUMMARY | 2025-06-15 14:17 | XMS_ITS | Clinical Summary ---
Author Organization [facility] [employer] Address [address] [place] [address] Care Team Providers Care In Store Demonstrator Name Role Phone Juan Nguyen MD Primary Care Provider +1- [phone] Source Comments [facility],non-owned Affiliates and Associated Physician Practices is amultiple site organization consisting of ambulatory clinics and hospital sitesin [place], [place], [place] and [place]. This disclosure is being madepursuant to the Care Everywhere program and may not contain all information available regarding this patient. Last updated 18.[facility] Allergies No known active allergies Medications * [...] [facility] - Pathology Lab [address] [place] [address] Irving Wilson MD Illness, unspecified 04/09/2025 Lab Requisition [facility] - Pathology Lab [address] [place] [address] Irving Wilson MD Other pancytopenia (HCC) from [...] DEPRESSION SCREENING 07/16/2024 COVID-19 VACCINE (1 - 2024-2 6 season) 2025 INFLUENZA VACCINE (#1) 2025 Respiratory [...] AM CDT) Case Report Flow Cytometry Case: [id number] Authorizing Provider: Irving Wilson Collected: 04/09/2025 09:20 AM MD Darrell Ordering Location: [facility] - Received: 04/09/2025 12:46 PM Pathology Lab Pathologist: Miguel Suárez MD Specimen: Bone Marrow 04/10/2025 10:42 AM CDT [facility] Final Diagnosis Bone marrow, flow cytometry: - Clonal kappa light chain restricted plasma cell population with aberrant CD34 and CD33 expression (~57% of overall events) 04/10/2025 10:42 AM CDT [facility] at 1042 CDT Flow [...] cytometry specimen has been reviewed for quality engineering manager purposes. Review shows numerous atypical plasma cells, small, with occasional nucleolus. Histologic review of the bone marrow core will follow in a separate report. 04/10/2025 10:42 AM CDT [facility] Flow Cytometry Results Differential Result Comment Flow Cell Count /uL 14,100 Total Viability % 87.0 Lymphocytes % 9 Dim CD45 Region % 66 Monocytes % 1 Granulocytes % 22 04/10/2025 10:[address] [facility] Reason for test Other pancytopenia (HCC) 284.19 04/10/2025 10:[address] [facility] Client Specimen ID # [id number] 04/10/2025 10:[address] [facility] Number of markers 21 were performed. A-2 Flow CD10 A-3 Flow CD13 A-5 Flow CD20 A-13 Flow CD117 A-14 FLOW CD138 A-15 Flow CD15 A-16 Flow CD22 A-1 Flow CD5 A-4 Flow CD19 A-6 Flow CD33 A-7 Flow CD34 A-8 Flow CD45 A-11 Flow CD38 A-12 Flow CD56 A-20 cyCD22 A-21 hbKY38z A-9 [place]+CD19+ A-10 Lambda+CD19+ A-17 Flow MPO A-18 Flow TdT A-19 cyCD3 04/10/2025 10:[address] [facility] Pathologist Location at [facility] 04/10/2025 10:[address] [facility] Disclaimer Test performed at [facility], [address] [place] [address], [id number]. *The established laboratory minimum viability is 70%. [...] high complexity clinical testing. 04/10/2025 10:[address] [facility] Embedded Images 10:[address] [facility] Pathology/Cytolo gy BONE MARROW SPECIMEN / Unknown 04/09/2025 9:20 AM CDT 04/09/2025 12:46 PM CDT Irving Wilson MD LAB - PATHOLOGY/CYT OLOGY ORDERABLES Final Result [facility] [address] [place] [address], [facility] [phone] * BONE MARROW BIOPSY (STL) (04/09/2025 9:20 AM CDT) Case Report Bone Marrow Patholog y Report Case: [id number] Authorizing Provider: Irving Wilson Collected: 04/09/2025 09:20 AM MD Darrell Ordering Location: [facility] - Received: 04/10/2025 02:41 PM Pathology Lab Pathologist: Miguel Suárez MD Specimens: A) - Bone Marrow Clot B) - Bone Marrow Core 04/15/2025 1:59 PM CDT [facility] Final Diagnosis Bone marrow, aspirate, clot section, and core biopsy: - Plasma cell neoplasm (~90% of marrow cellularity). - See description. Peripheral blood smear: - Pancytopenia. - See description. 04/15/2025 1:59 PM CDT [facility] Amendment electronically signed by Miguel Suárez MD on 04/15/2025 at 1359 CDT at 1102 CDT AP Comment A Congo Red is pending, and results will be reported in an addendum. 04/15/2025 1:59 PM CDT [facility] Peripheral Smear Description RBC: macrocytic anemia. WBC: leukopenia with no circulating plasma cells. Platelets: decreased in number. 04/15/2025 1:59 PM CDT [facility] Bone Marrow Aspirate Differential count (200 cells): not performed due to hemodilution. Specimen quality: hemodilute. Spicules: absent. There is considerable hemodilution present on the aspirate smears. However, plasma cells are seen, showing cytologic atypia with large size, rare multinucleation, and nucleoli. Storage iron (by special stain): markedly decreased in this mostly plasma cell dominant clot section. 04/15/2025 1:[address] [facility] Bone Marrow Core Biopsy and [...] on CD138+ plasma cells. 04/15/2025 1:[address] [facility] Flow Cytometry Summary Bone marrow, flow cytometry ([id number]): - Clonal kappa light chain restricted plasma cell population with aberrant CD34 and CD33 expression (~57% of overall events) 04/15/2025 1:[address] [facility] Clinical History Multiple myeloma, new diagnosis. 04/15/2025 1:[address] [facility] Materials Received Received are 23 slide(s) and 4 block(s) labeled [id number] along with a copy of the outside pathology report. [place] [address]. All original materials are returned to the referring institution, along with a copy of our final report. 04/15/2025 1:[address] [facility] Pathologist Location at [facility] 04/15/2025 1:[address] [facility] Disclaimer The performance characteristics of all immunohistochemical and indirect immunofluorescence stains (if any) cited in this report were determined by the Histopathology Laboratory of [facility]. Some of these tests were [...] attending (teaching) pathologist. 04/15/2025 1:59 PM CDT [facility] Addendum 1 The Congo [...] PATHO LOGY/CYTOLOGY ORDERABLES Edited Result - Final [facility] [address] [facility] [place] [address], [facility] [phone] from Last 3 Months Insurance [facility] MEDICARE Care Teams In Store Demonstrator Relationship Specialty Start Date End Date Juan Nguyen MD PCP - General Internal Medicine 01/27/17
--- OUTSIDE RECORDS SUMMARY | 2025-06-15 14:17 | XMS_ITS | Encounter Summary ---
Author Organization [facility] Address [address] [place] [address] Care Team Providers Care Pipe Threader Name Role Phone Juan Nguyen MD Primary Care Provider +1- [phone] Encounter Details Date Type Department Care Team (Late st Contact Info) Description 04/10/2025 Lab Requisition [facility] - Pathology Lab [address] [place] [address] Irving Wilson MD [address] [place] [address] Illness, unspecified Social History Tobacco Use [...] Report Bone Marrow Patholog y Report Case: [id number] Authorizing Provider: Irving Wilson Collected: 04/09/2025 09:20 AM MD Darrell Ordering Location: [facility] - Received: 04/10/2025 02:41 PM Pathology Lab Pathologist: Miguel Suárez MD Specimens: A) - Bone Marrow Clot B) - Bone Marrow Core 04/15/2025 1:59 PM CDT [facility] Final Diagnosis Bone marrow, aspirate, clot section, and core biopsy: - Plasma cell neoplasm (~90% of marrow cellularity). - See description. Peripheral blood smear: - Pancytopenia. - See description. 04/15/2025 1:59 PM CDT [facility] Amendment electronically signed by Miguel Suárez MD on 04/15/2025 at 1359 CDT at 1102 CDT AP Comment A Congo Red is pending, and results will be reported in an addendum. 04/15/2025 1:59 PM CDT [facility] Peripheral Smear Description RBC: macrocytic anemia. WBC: leukopenia with no circulating plasma cells. Platelets: decreased in number. 04/15/2025 1:59 PM CDT [facility] Bone Marrow Aspirate Differential count (200 cells): not performed due to hemodilution. Specimen quality: hemodilute. Spicules: absent. There is considerable hemodilution present on the aspirate smears. However, plasma cells are seen, showing cytologic atypia with large size, rare multinucleation, and nucleoli. Storage iron (by special stain): markedly decreased in this mostly plasma cell dominant clot section. 04/15/2025 1:59 PM CDT [facility] Bone Marrow Core [...] CD138+ plasma cells. 04/15/2025 1:59 PM CDT [facility] Flow Cytometry Summary Bone marrow, flow cytometry ([id number]): - Clonal kappa light chain restricted plasma cell population with aberrant CD34 and CD33 expression (~57% of overall events) 04/15/2025 1:59 PM CDT [facility] Clinical History Multiple myeloma, new diagnosis. 04/15/2025 1:59 PM CDT [facility] Materials Received Received are 23 slide(s) and 4 block(s) labeled [id number] along with a copy of the outside pathology report. [place] [address]. All original materials are returned to the referring institution, along with a copy of our final report. 04/15/2025 1:59 PM CDT [facility] Pathologist Location at [facility] 04/15/2025 1:59 PM CDT [facility] Disclaimer The performance characteristics of all immunohistochemical and indirect immunofluorescence stains (if any) cited in this report were determined by the Histopathology Laboratory of [facility]. Some of these tests were developed [...] Edited Result - Final Performing Organization Address City/State/[facility] Co de Phone Number [facility] [address] [phone] documented in this encounter Visit Diagnoses Diagnosis Illness, unspecified documented in this encounter Care Teams Pipe Threader Relationship Specialty Start Date End Date Juan Nguyen MD PCP - General Internal Medicine 01/27/17 documented as of this encounter
--- OUTSIDE RECORDS SUMMARY | 2025-06-15 14:17 | XMS_ITS | Clinical Summary ---
Author Organization [facility] Giovanny paul Marcelo Address [address] [place] [address] Care Team Providers Care Plush Brusher Name Role Phone Juan Nguyen MD Primary Care Provider Allergies No known active allergies Medications dexAMETHasone (DECADRON) 4 mg tablet Take 10 tablet every Sunday 40 Tablet 5 5 Active sulfamethoxazol e-trimethoprim (BACTRIM DS) 800-160 mg tablet 1 tablet twice a day Sunday and Sunday 16 Tablet 5 5 Active omeprazole (PriLOSEC) 20 mg Capsule, Delayed Release(E.C.)In dications:Multi ple myeloma not having achieved remission (CMS/HCC) Take 1 Capsule (20 mg) by mouth daily. 90 Capsule 5 Active ondansetron (ZOFRAN ODT) 8 mg Tablet, Rapid DissolveIndicat ions:Multiple myeloma not having achieved remission (CMS/HCC) Dissolve 1 tablet on top of tongue then swallow with saliva every 8 hours as needed for nausea or vomiting 30 Tablet 1 5 Active acyclovir (ZOVIRAX) 400 mg tablet Take 1 Tablet (400 mg) by mouth 2 times daily. 60 Tablet 6 5 Active Active Problems Problem Noted Date Diagnosed Date Multiple myeloma not having achieved remission 1 Encounters Date Type Department Care Team Description 06/09/2025 Orders Only [facility] Oncology and Hematology - [address] [place] [address] Kirt Gonzalez MD 06/08/2025 Orders Only [facility] Oncology and Hematology - [place] [address] [place] [phone] Kirt Gonzalez MD Multiple myeloma not having achieved remission (CMS/HCC) (Primary Dx) 06/08/2025 Orders Only [facility] Oncology and Hematology - [place] [address] [place] [address] Kirt Gonzalez MD Multiple myeloma not having achieved remission (CMS/HCC); Benign hypertension 06/02/2025 Orders Only [facility] Oncology and Hematology - [place] [address] [place] [phone] Kirt Gonzalez MD 05/27/2025 Orders Only [facility] Oncology and Hematology - [place] [address] [place] [phone] Kirt Gonzalez MD 05/27/2025 Abstract [facility] Oncology and Hematology - [place] [address] [place] [phone] Kirt Gonzalez MD 05/27/2025 Abstract [facility] Oncology and Hematology - [place] [address] [place] [phone] Kirt Gonzalez MD 05/26/2025 Orders Only [facility] Oncology and Hematology - [place] [address] [place] [phone] Kirt Gonzalez MD 05/25/2025 8:30 AM DISTRICT OR DISTRICT OFFICE DIRECTOR Office Visit [facility] Oncology and Hematology - [address] [place] [address] Kirt Gonzalez MD Renal insufficiency (Primary Dx); Multiple myeloma not having achieved remission (CMS/HCC); Benign hypertension 05/21/2025 Orders Only [facility] Oncology and Hematology - [place] [address] [place] [address] Kirt Gonzalez MD 05/20/2025 Orders Only [facility] Oncology and Hematology - [place] [address] [place] [phone] Kirt Gonzalez MD 05/13/2025 Refill [facility] Oncology and Hematology - [place] [address] Kirt Gonzalez MD 05/13/2025 Telephone [facility] Oncology and Hematology - [place] [address] Kirt Gonzalez MD Medication Review 05/13/2025 Refill [facility] Oncology and Hematology - [place] [address] [place] [address] Kirt Gonzalez MD 05/12/2025 Orders Only [facility] Oncology and Hematology [facility] [address] [place] [phone] Kirt Gonzalez MD 05/11/2025 9:15 AM CDT Office Visit [facility] Oncology and Hematology - [address] [place] [phone] Kirt Gonzalez MD Multiple myeloma not having achieved remission (CMS/HCC) (Primary Dx) 05/11/2025 Orders Only [facility] Oncology and Hematology [facility] [address] [place] [phone] Kirt Gonzalez MD Multiple myeloma not having achieved remission (CMS/HCC) (Primary Dx); Benign hypertension 05/07/2025 Abstract [facility] Oncology and Hematology - [place] [address] [place] [phone] Kirt Gonzalez MD 05/06/2025 External Device Data STL ABSTRACTION Provider, Abstract 05/05/2025 Orders Only [facility] Oncology and Hematology [facility] [address] [place] [phone] Kirt Gonzalez MD 04/30/2025 Refill [facility] Oncology and Hematology [facility] [address] [place] [address] Kirt Gonzalez MD Multiple myeloma not having achieved remission (CMS/HCC) (Primary Dx) 04/29/2025 Orders Only [facility] Oncology and Hematology [address] [place] [address] Kirt Gonzalez MD Need for hepatitis B screening test (Primary Dx) 04/21/2025 External Device Data STL ABSTRACTION Provider, Abstract 04/21/2025 External Device Data STL ABSTRACTION Provider, Abstract 04/21/2025 External Device Data STL ABSTRACTION Provider, Abstract 04/21/2025 Specialty Pharmacy [facility] [address] [place] [phone] Carissa Vilchis, PHARMACIST 04/20/2025 Telephone [facility] Oncology [facility] Hematology [facility] [address] [place] [address] Kirt Gonzalez MD Medication Review 04/20/2025 Specialty Pharmacy [facility] [address] [place] [phone] Carissa Vilchis, PHARMACIST 04/16/2025 10:30 AM CDT Office Visit [facility] Oncology and Hematology [facility] [address] [place] [address] Kirt Gonzalez MD Multiple myeloma not having achieved remission (CMS/HCC) (Primary Dx) 04/15/2025 Orders Only [facility] Oncology and Hematology - [place] [address] [place] [address] Kirt Gonzalez MD from Last 3 Months [...] Sign Reading Time Taken Comments Blood Pressure 143/59 05/25/2025 8:35 AM DISTRICT OR DISTRICT OFFICE DIRECTOR Pulse 89 05/25/2025 8:29 AM DISTRICT OR DISTRICT OFFICE DIRECTOR Temperature 36.1 C (96.9 F) 05/25/2025 8:29 AM DISTRICT OR DISTRICT OFFICE DIRECTOR Respiratory Rate 15 05/25/2025 8:29 AM DISTRICT OR DISTRICT OFFICE DIRECTOR Oxygen Saturation 98% 05/25/2025 8:29 AM DISTRICT OR DISTRICT OFFICE DIRECTOR Inhaled Oxygen Concentration - - Weight 81.3 kg (179 lb 3.2 oz) 05/25/2025 8:29 A M DISTRICT OR DISTRICT OFFICE DIRECTOR Height 175.3 cm (5' 9) 04/16/2025 10:21 AM CDT Body Mass Index 26.46 04/16/2025 10:21 AM CDT Plan of Treatment Upcoming Encounters Date Type Department Care Team (Late st Contact Info) Description 06/17/2025 9:00 AM DISTRICT OR DISTRICT OFFICE DIRECTOR Office Visit [facility] Oncology and Hematology [facility] [address] [facility] [address] [place] [address] Kirt Gonzalez MD [address] [facility] [address] [place] [address] Health Maintenance Due Date Last Done Comments Pre-Diabetes and Diabetes Screening 1960 Traditional Medicare (ACO) A nnual Wellness Visit 1977 FIT-DNA Q 3 years 2003 FIT/FOBT Q 1 year 2003 Flex Sig/CT Colonography Q 5 years 2003 Abdominal Aortic Aneurysm (A AA) Screening 2023 INFLUENZA VACCINE (#1) 2025 07/22/2022, 2019 COVID-19 Vaccine (5 - 2024-2 6 season) 2025 07/22/2022, 06/20/2021, 09/13/2020, Additional history exists ZOSTER VACCINE (2 of 2) 06/24/2025 04/29/2025 COLORECTAL SCREENING 09/14/2031 09/13/2021, 09/14/19 22 Colorectal Cancer Screening 09/14/2031 RSV VACCINE (60+ or ) (1 - 1-dose 75+ series) 2033 DTAP/TDAP/TD VACCINES (2 - T d or Tdap) 11/12/2033 11/13/2023 PNEUMOCOCCAL VACCINE 50+ YEARS Completed 03/19/2025 Procedures Procedure Name Priority Date/Time Associated Diagnosis Comments CBC WITH AUTODIFFERENTIAL Routine 2024 4:15 PM DISTRICT OR DISTRICT OFFICE DIRECTOR COMPREHENSIVE METABOLIC PANEL Routine 06/08/2025 11:00 AM DISTRICT OR DISTRICT OFFICE DIRECTOR COMPREHENSIVE METABOLIC PANEL Routine 06/01/2025 11:30 AM DISTRICT OR DISTRICT OFFICE DIRECTOR CBC WITH AUTODIFFERENTIAL Routine 2024 11:34 AM DISTRICT OR DISTRICT OFFICE DIRECTOR COMPREHENSIVE METABOLIC PANEL Routine 05/25/2025 2:29 PM DISTRICT OR DISTRICT OFFICE DIRECTOR CBC WITH AUTODIFFERENTIAL Routine 2024 2:28 PM DISTRICT OR DISTRICT OFFICE DIRECTOR COMPREHENSIVE METABOLIC PANEL Routine 05/18/2025 2:52 PM DISTRICT OR DISTRICT OFFICE DIRECTOR CBC WITH AUTODIFFERENTIAL Routine 2024 12:37 PM DISTRICT OR DISTRICT OFFICE DIRECTOR COMPREHENSIVE METABOLIC PANEL Routine 05/11/2025 11:47 AM CDT CBC WITH AUTODIFFERENTIAL Routine 2024 7:53 AM CDT PET BONE IMG W CT SKL BSE MID THG Routine 04/28/2025 7:57 AM CDT PATHOLOGY Routine 04/09/2025 12:24 PM CDT from Last 3 Months Results * CBC WITH AUTODIFFERENTIAL (06/08/2025 4:15 PM DISTRICT OR DISTRICT OFFICE DIRECTOR) Only the most recent of5 resultswithin the time period is included. Blood us Kirt Gonzalez MD HEMATOLOGY ORDERABLES Final Res ult * COMPREHENSIVE METABOLIC PANEL (06/08/2025 11:00 AM DISTRICT OR DISTRICT OFFICE DIRECTOR) Only the most recent of5 resultswithin the time period is included. Blood us Kirt Gonzalez MD CHEMISTRY ORDERABLES Final Resu lt * PET BONE IMG W CT SKB MD (04/28/2025 7:57 AM CDT) Anatomical Region Laterality Modality Positron Emissio n Tomography (PET) Kirt Gonzalez MD PE ORDERABLES Final Result * PATHOLOGY (04/09/2025 12:24 PM CDT) Tissue Kirt Gonzalez MD PATHOLOGY/CYTOLOGY ORDERABLES F inal Result from Last 3 Months Insurance MEDICARE PART A AND B [facility] RX [employer] RX Member Subscriber Plan / Payer (Ef fective 2025-Present) Name:Ramon Mendoza Relation to Subscriber:Self Name:Ramon Mendoza Payer ID:Not on file Group ID:[id number] Type:RX Commercial Address: [address] Care Teams Plush Brusher Relationship Specialty Start Date End Date Juan Nguyen MD [address] [place] [phone] PCP - General Internal Medicine 04/16/25
== END 2025-06-15 13:11 | disposition home or self-care (01) ==
PROVIDERS: Visit Provider Internal Medicine Hematology & Oncology
DX: C90.00 Multiple myeloma not having achieved remission (principal)
CPT/HCPCS: 99212; G0463

== ENCOUNTER 2025-07-06 11:38 | Outpatient (CLI) | payer MEDICARE, OTHER, SELFPAY ==
[2025-07-06 12:02] LABS: INR 1.1; Prothrombin Time 14.2 Seconds (11.1-14.7)
[2025-07-06 12:04] LABS: Partial Thromboplastin Time 26.8 Seconds (22.3-36.8)
--- OUTSIDE RECORDS SUMMARY | 2025-07-06 13:30 | XMS_ITS | Clinical Summary ---
Author Organization Electronic [facility] lin Address [address] [place] [address] Care Team Providers Care Boat Repairer Name Role Phone Unavailable Primary Care Provider Unavailabl e Immunizations Immunization Administration Dates Next Due Shingrix Recombinant Dose 04/29/2025 Social History Tobacco Use Types Packs/Day Years Used Date Smoking Tobacco: Never Assessed Sex and Gender Information Value Date Recorded Sex Assigned at Not on file Legal Sex Male 2:46 PM EST Gender Identity Not on file Sexual Orientation Not on file Plan of Treatment Not on file Medical Devices Not on file Insurance [facility]
--- OUTSIDE RECORDS SUMMARY | 2025-07-06 13:30 | XMS_ITS | Clinical Summary ---
Author Organization [facility] Address [address] [place] [address] Care Team Providers Care Environmental Studies Department Chair Name Role Phone Juan Nguyen MD Primary Care Provider [phone]- [phone] Source Comments [facility],non-owned Affiliates and Associated Physician Practices is amultiple site organization consisting of ambulatory clinics and hospital sitesin [place], [place], [place] and [place]. This disclosure is being madepursuant to the Care Everywhere program and may not contain all information available regarding this patient. Last updated 18.[facility] Allergies No known active allergies Medications * [...] [facility] - Pathology Lab [address] [place] [address] Irving Wilson MD Illness, unspecified 04/09/2025 Lab Requisition [facility] - Pathology Lab [address] [place] [address] Irving Wilson MD Other pancytopenia (HCC) from [...] AM CDT) Case Report Flow Cytometry Case: [id number] Authorizing Provider: Irving Wilson Collected: 04/09/2025 09:20 AM MD Darrell Ordering Location: [facility] - Received: 04/09/2025 12:46 PM Pathology Lab Pathologist: Miguel Suárez MD Specimen: Bone Marrow 04/10/2025 10:42 AM CDT [facility] Final Diagnosis Bone marrow, flow cytometry: - Clonal kappa light chain restricted plasma cell population with aberrant CD34 and CD33 expression (~57% of overall events) 04/10/2025 10:42 AM CDT [facility] at 1042 CDT Flow [...] specimen has been reviewed for air quality manager purposes. Review shows numerous atypical plasma [...] 1 Granulocytes % 22 04/10/2025 10:42 AM [facility] Reason for test Other pancytopenia (HCC) 284.19 04/10/2025 10:42 AM [facility] Client Specimen ID # [id number] 04/10/2025 10:42 AM [facility] Number of markers 21 were performed. A-2 Flow CD10 A-3 Flow CD13 A-5 Flow CD20 A-13 Flow CD117 A-14 FLOW CD138 A-15 Flow CD15 A-16 Flow CD22 A-1 Flow CD5 A-4 Flow CD19 A-6 Flow CD33 A-7 Flow CD34 A-8 Flow CD45 A-11 Flow CD38 A-12 Flow CD56 A-20 cyCD22 A-21 faEY79o A-9 [place]+CD19+ A-10 Lambda+CD19+ A-17 Flow MPO A-18 Flow TdT A-19 cyCD3 04/10/2025 10:42 AM [facility] Pathologist Location at [facility] 04/10/2025 10:42 AM [facility] Disclaimer Test performed at [facility], [address] [place] [address], [address]. *The established laboratory minimum viability is 70%. [...] high complexity clinical testing. 04/10/2025 10:42 AM [facility] Embedded Images 10:42 AM [facility] Pathology/Cytolo gy BONE MARROW SPECIMEN / Unknown 04/09/2025 9:20 AM CDT 04/09/2025 12:46 PM CDT Irving Wilson MD LAB - PATHOLOGY/CYT OLOGY ORDERABLES Final Result [facility] [address] [place] [address], [facility] [phone] * BONE MARROW BIOPSY (STL) (04/09/2025 9:20 AM CDT) Case Report Bone Marrow Patholog y Report Case: [id number] Authorizing Provider: Irving Wilson Collected: 04/09/2025 09:20 AM MD Darrell Ordering Location: [facility] - Received: 04/10/2025 02:41 PM Pathology Lab Pathologist: Miguel Suárez MD Specimens: A) - Bone Marrow Clot B) - Bone Marrow Core 04/15/2025 1:59 PM CDT [facility] Final Diagnosis Bone marrow, aspirate, clot section, and core biopsy: - Plasma cell neoplasm (~90% of marrow cellularity). - See description. Peripheral blood smear: - Pancytopenia. - See description. 04/15/2025 1:59 PM CDT [facility] Amendment electronically signed by Miguel Suárez MD on 04/15/2025 at 1359 CDT at 1102 CDT AP Comment A Congo Red is pending, and results will be reported in an addendum. 04/15/2025 1:59 PM CDT [facility] Peripheral Smear Description RBC: macrocytic anemia. WBC: leukopenia with no circulating plasma cells. Platelets: decreased in number. 04/15/2025 1:59 PM CDT [facility] Bone Marrow Aspirate Differential count (200 cells): not performed due to hemodilution. Specimen quality: hemodilute. Spicules: absent. There is considerable hemodilution present on the aspirate smears. However, plasma cells are seen, showing cytologic atypia with large size, rare multinucleation, and nucleoli. Storage iron (by special stain): markedly decreased in this mostly plasma cell dominant clot section. 04/15/2025 1:59 PM [facility] Bone Marrow Core Biopsy [...] on CD138+ plasma cells. 04/15/2025 1:59 PM [facility] Flow Cytometry Summary Bone marrow, flow cytometry ([id number]): - Clonal kappa light chain restricted plasma cell population with aberrant CD34 and CD33 expression (~57% of overall events) 04/15/2025 1:59 PM [facility] Clinical History Multiple myeloma, new diagnosis. 04/15/2025 1:59 PM [facility] Materials Received Received are 23 slide(s) and 4 block(s) labeled [id number] along with a copy of the outside pathology report. [place] [address]. All original materials are returned to the referring institution, along with a copy of our final report. 04/15/2025 1:59 PM [facility] Pathologist Location at [facility] 04/15/2025 1:59 PM [facility] Disclaimer The performance characteristics of all immunohistochemical and indirect immunofluorescence stains (if any) cited in this report were determined by the Histopathology Laboratory of [facility]. Some of these tests were developed by [...] attending (teaching) pathologist. 04/15/2025 1:59 PM CDT [facility] Addendum 1 The Congo [...] PATHO LOGY/CYTOLOGY ORDERABLES Edited Result - Final [facility] [address] [place] [address], [facility] [phone] from Last [address] [facility] MEDICARE Care Teams Environmental Studies Department Chair Relationship Specialty Start Date End Date Juan Nguyen MD PCP - General Internal Medicine 01/27/17
--- OUTSIDE RECORDS SUMMARY | 2025-07-06 13:30 | XMS_ITS | Clinical Summary ---
Author Organization [facility] Giovanny paul Marcelo Address [address] [place] [address] Care Team Providers Care Classification Inspector Name Role Phone Juan Nguyen MD Primary [...] times daily. 60 Tablet 6 5 Active CALCIUM CARBONATE ORAL Take 1,500 mcg by mouth. Active lidocaine-prilo sonia (EMLA) 2.5-2.5 % Cream Apply a quarter size amount to port site 30 minutes prior to access. 30 Gram 1 5 Active Active Problems Problem Noted Date Diagnosed Date Multiple myeloma not having achieved remission 1 Encounters Date Type Department Care Team Description 07/06/2025 Refill [facility] Oncology and Hematology - [place] [address] [place] [phone] Kirt Gonzalez MD 07/06/2025 Orders Only [facility] Oncology and Hematology - [place] [address] [place] [address] Kirt Gonzalez MD Multiple myeloma not having achieved remission (CMS/HCC); Benign hypertension 06/30/2025 External Device Data STL ABSTRACTION Provider, Abstract 06/22/2025 Orders Only [facility] Oncology and Hematology - [place] [address] [place] [phone] Kirt Gonzalez MD Multiple myeloma not having achieved remission (CMS/HCC); Benign hypertension 06/17/2025 9:00 AM CONTINUOUS WELD PIPE MILL SUPERVISOR Office Visit [facility] Oncology and Hematology [facility] [address] Kirt Gonzalez MD Multiple myeloma not having achieved remission (CMS/HCC) (Primary Dx) 06/17/2025 Orders Only [facility] Oncology and Hematology - [place] [address] [place] [phone] Kirt Gonzalez MD 06/09/2025 Orders Only [facility] Oncology and Hematology - [place] [address] [place] [phone] Kirt Gonzalez MD 06/08/2025 Orders Only [facility] Oncology and Hematology - [place] [address] [place] [address] Kirt Gonzalez MD Multiple myeloma not having achieved remission (CMS/HCC) (Primary Dx) 06/08/2025 Orders Only [facility] Oncology and Hematology - [place] [address] [place] [address] Kirt Gonzalez MD Multiple myeloma not having achieved remission (CMS/HCC); Benign hypertension 06/02/2025 Orders Only [facility] Oncology and Hematology - [place] [address] [place] [address] Kirt Gonzalez MD 05/27/2025 Orders Only [facility] Oncology and Hematology - [place] [address] [place] [phone] Kirt Gonzalez MD 05/27/2025 Abstract [facility] Oncology and Hematology - [place] [address] [place] [address] Kirt Gonzalez MD 05/27/2025 Abstract [facility] Oncology and Hematology - [place] [address] [place] [address] Kirt Gonzalez MD 05/26/2025 Orders Only [facility] Oncology and Hematology - [place] [address] [place] [phone] Kirt Gonzalez MD 05/25/2025 8:30 AM CONTINUOUS WELD PIPE MILL SUPERVISOR Office Visit [facility] Oncology and Hematology - [place] [address] [place] [address] Kirt Gonzalez MD Renal insufficiency (Primary Dx); Multiple myeloma not having achieved remission (CMS/HCC); Benign hypertension 05/21/2025 Orders Only [facility] Oncology and Hematology - [place] [address] [place] [address] Kirt Gonzalez MD 05/20/2025 Orders Only [facility] Oncology and Hematology - [place] [address] [place] [address] Kirt Gonzalez MD 05/13/2025 Refill [facility] Oncology and Hematology - [place] [address] [place] [address] Kirt Gonzalez MD 05/13/2025 Telephone [facility] Oncology and Hematology - [place] [address] [place] [address] Kirt Gonzalez MD Medication Review 05/13/2025 Refill [facility] Oncology and Hematology [facility] [address] Kirt Gonzalez MD 05/12/2025 Orders Only [facility] Oncology [facility] Hematology [facility] [address] [place] [phone] Kirt Gonzalez MD 05/11/2025 9:15 AM CDT Office Visit [facility] Oncology [facility] Hematology [facility] [address] [place] [phone] Kirt Gonzalez MD Multiple myeloma not having achieved remission (CMS/HCC) (Primary Dx) 05/11/2025 Orders Only [facility] Oncology [facility] Hematology [facility] [address] [place] [address] Kirt Gonzalez MD Multiple myeloma not having achieved remission (CMS/HCC) (Primary Dx); Benign hypertension 05/07/2025 Abstract [facility] Oncology and Hematology [facility] [address] [place] [phone] Kirt Gonzalez MD 05/06/2025 External Device Data STL ABSTRACTION Provider, Abstract 05/05/2025 Orders Only [facility] Oncology [facility] Hematology [facility] [address] [place] [address] Kirt Gonzalez MD 04/30/2025 Refill [facility] Oncology and Hematology [facility] [address] [place] [address] Kirt Gonzalez MD Multiple myeloma not having achieved remission (CMS/HCC) (Primary Dx) 04/29/2025 Orders Only [facility] Oncology and Hematology [facility] [address] [place] [address] Kirt Gonzalez MD Need for hepatitis B screening test (Primary Dx) 04/21/2025 External Device Data STL ABSTRACTION Provider, Abstract 04/21/2025 External Device Data STL ABSTRACTION Provider, Abstract 04/21/2025 External Device Data STL ABSTRACTION Provider, Abstract 04/21/2025 Specialty Pharmacy [facility] [address] [place] [address] [place] [address] Carissa Vilchis, PHARMACIST 04/20/2025 Telephone [facility] Oncology [facility] Hematology [facility] [address] [place] [address] Kirt Gonzalez MD Medication Review 04/20/2025 Specialty Pharmacy [facility] [address] [place] [address] [place] [address] Carissa Vilchis, PHARMACIST 04/16/2025 10:30 AM CDT Office Visit [facility] Oncology and Hematology [facility] [address] [place] [address] Kirt Gonzalez MD Multiple myeloma not having achieved remission (CMS/HCC) (Primary Dx) 04/15/2025 Orders Only [facility] Oncology and H[facility]ology [facility] [address] [place] [address] Kirt Gonzalez MD from Last 3 Months [...] 24 1 - 04/16/1998 Smokeless Tobacco: Never Tobacco Cessation:Counseling Given: Not Answered Alcohol Use Standard Drinks/Week Comments Never 0 (1 standard drink = 0.6 oz pur e alcohol) Sex and Gender Information Value Date Recorded Sex Assigned at Not on file Legal Sex Male 1:19 PM CDT Gender Identity Not on file Sexual Orientation Not on file Last Filed Vital Signs Vital Sign Reading Time Taken Comments Blood Pressure 148/75 06/17/2025 8:51 AM CONTINUOUS WELD PIPE MILL SUPERVISOR Pulse 81 06/17/2025 8:47 AM CONTINUOUS WELD PIPE MILL SUPERVISOR Temperature 36.4 C (97.6 F) 06/17/2025 8:47 AM CONTINUOUS WELD PIPE MILL SUPERVISOR Respiratory Rate 15 06/17/2025 8:47 AM CONTINUOUS WELD PIPE MILL SUPERVISOR Oxygen Saturation 97% 06/17/2025 8:47 AM CONTINUOUS WELD PIPE MILL SUPERVISOR Inhaled Oxygen Concentration - - Weight 81.4 kg (179 lb 6.4 oz) 06/17/2025 8:47 A M CONTINUOUS WELD PIPE MILL SUPERVISOR Height 175.3 cm (5' 9) 04/16/2025 10:21 AM CDT Body Mass Index 26.49 04/16/2025 10:21 AM CDT Plan of Treatment Upcoming Encounters Date Type Department Care Team (Late st Contact Info) Description 07/27/2025 8:45 AM CONTINUOUS WELD PIPE MILL SUPERVISOR Office Visit [facility] Oncology and Hematology - [place] [address] [facility] [address] [place] [address] Kirt Gonzalez MD [address] [facility] [address] [place] [address] Health Maintenance Due Date Last [...] Procedure Name Priority Date/Time Associated Diagnosis Comments COMPREHENSIVE METABOLIC PANEL Routine 06/15/2025 12:09 PM CONTINUOUS WELD PIPE MILL SUPERVISOR CBC WITH AUTODIFFERENTIAL Routine 2024 4:15 PM CONTINUOUS WELD PIPE MILL SUPERVISOR COMPREHENSIVE METABOLIC PANEL Routine 06/08/2025 11:00 AM CONTINUOUS WELD PIPE MILL SUPERVISOR COMPREHENSIVE METABOLIC PANEL Routine 06/01/2025 11:30 AM CONTINUOUS WELD PIPE MILL SUPERVISOR CBC WITH AUTODIFFERENTIAL Routine 2024 11:34 AM CONTINUOUS WELD PIPE MILL SUPERVISOR COMPREHENSIVE METABOLIC PANEL Routine 05/25/2025 2:29 PM CONTINUOUS WELD PIPE MILL SUPERVISOR CBC WITH AUTODIFFERENTIAL Routine 2024 2:28 PM CONTINUOUS WELD PIPE MILL SUPERVISOR COMPREHENSIVE METABOLIC PANEL Routine 05/18/2025 2:52 PM CONTINUOUS WELD PIPE MILL SUPERVISOR CBC WITH AUTODIFFERENTIAL Routine 2024 12:37 PM CONTINUOUS WELD PIPE MILL SUPERVISOR COMPREHENSIVE METABOLIC PANEL Routine 05/11/2025 11:47 AM CDT CBC WITH AUTODIFFERENTIAL Routine 2024 7:53 AM CDT PET BONE IMG W CT SKL BSE MID THG Routine 04/28/2025 7:57 AM CDT PATHOLOGY Routine 04/09/2025 12:24 PM CDT from Last 3 Months Results * COMPREHENSIVE METABOLIC PANEL (06/15/2025 12:09 PM CONTINUOUS WELD PIPE MILL SUPERVISOR) Only the most recent of6 resultswithin the time period is included. Blood us Kirt Gonzalez MD CHEMISTRY ORDERABLES Final Resu lt * CBC WITH AUTODIFFERENTIAL (06/08/2025 4:15 PM CONTINUOUS WELD PIPE MILL SUPERVISOR) Only the most recent of5 resultswithin the time period is included. Blood us Kirt Gonzalez MD HEMATOLOGY ORDERABLES Final Res ult * PET BONE IMG W CT SKB MDTH (04/28/2025 7:57 AM CDT) Anatomical Region Laterality Modality Positron Emissio n Tomography (PET) us Kirt Gonzalez MD PE ORDERABLES Final Result * PATHOLOGY (04/09/2025 12:24 PM CDT) Tissue us Kirt Gonzalez MD PATHOLOGY/CYTOLOGY ORDERABLES F inal Result from Last 3 Months Insurance MEDICARE PART A AND B [employer] [facility] [employer] RX Member Subscriber Plan / Payer ( fective 2025-Present) Name:Ramon Mendoza Relation to Subscriber:Self Name:Ramon Mendoza Payer ID:Not on file Group ID:[id number] Type:RX Commercial Address: [address] Care Teams Classification Inspector Relationship Specialty Start Date End Date Juan Nguyen MD [address] [place] [address] PCP - General Internal Medicine 04/16/25
--- OUTSIDE RECORDS SUMMARY | 2025-07-06 13:30 | XMS_ITS | Encounter Summary ---
Author Organization [facility] Address [address] [facility] [place] [address] Care Team Providers Care Life Science Teacher Name Role Phone Juan Nguyen MD Primary Care Provider +1- [phone] Encounter Details Date Type Department Care Team (Late st Contact Info) Description 04/09/2025 Lab Requisition [facility] [place] [facility] - Pathology Lab [address] [place] [address] Irving Wilson MD [address] [facility] [address] [place] [address] Other pancytopenia (HCC) Social History Tobacco [...] AM CDT) Case Report Flow Cytometry Case: [id number] Authorizing Provider: Irving Wilson Collected: 04/09/2025 09:20 AM MD Darrell Ordering Location: [facility] Physician [facility] - Received: 04/09/2025 12:46 PM Pathology Lab Pathologist: Miguel Suárez MD Specimen: Bone Marrow 04/10/2025 10:42 AM [facility] Final Diagnosis Bone marrow, flow cytometry: - Clonal kappa light chain restricted plasma cell population with aberrant CD34 and CD33 expression (~57% of overall events) 04/10/2025 10:42 AM [facility] at 1042 CDT Flow Cytometry [...] flow cytometry specimen has been reviewed for ethanol quality leader purposes. Review shows numerous atypical plasma cells, small, with occasional nucleolus. Histologic review of the bone marrow core will follow in a separate report. 04/10/2025 10:42 AM [facility] Flow Cytometry Results Differential Result Comment Flow Cell Count /uL 14,100 Total Viability % 87.0 Lymphocytes % 9 Dim CD45 Region % 66 Monocytes % 1 Granulocytes % 22 04/10/2025 10:42 AM [facility] Reason for test Other pancytopenia (HCC) 284.19 04/10/2025 10:42 AM [facility] Client Specimen ID # [id number] 04/10/2025 10:42 AM [facility] Number of markers 21 were performed. A-2 Flow CD10 A-3 Flow CD13 A-5 Flow CD20 A-13 Flow CD117 A-14 FLOW CD138 A-15 Flow CD15 A-16 Flow CD22 A-1 Flow CD5 A-4 Flow CD19 A-6 Flow CD33 A-7 Flow CD34 A-8 Flow CD45 A-11 Flow CD38 A-12 Flow CD56 A-20 cyCD22 A-21 ngVG80z A-9 [place]+CD19+ A-10 Lambda+CD19+ A-17 Flow MPO A-18 Flow TdT A-19 cyCD3 04/10/2025 10:42 AM [facility] Pathologist Location at [facility] 04/10/2025 10:42 AM CDT [facility] Disclaimer Test performed at [facility], [address] [place], [place], [address]. *The established laboratory minimum viability is 70%. [...] complexity clinical testing. 04/10/2025 10:42 AM CDT [facility] Embedded Images 10:42 AM CDT [facility] Pathology/Cytolo gy BONE MARROW SPECIMEN / Unknown 04/09/2025 9:20 AM CDT 04/09/2025 12:46 PM CDT Irving Wilson MD LAB - PATHOLOGY/CYT OLOGY ORDERABLES Final Result [facility]. [address] [phone] documented in this encounter Visit Diagnoses Diagnosis Other pancytopenia (HCC) Other pancytopenia documented in this encounter Care Teams Life Science Teacher Relationship Specialty Start Date End Date Juan Nguyen MD PCP - General Internal Medicine 01/27/17 documented as of this encounter
--- OUTSIDE RECORDS SUMMARY | 2025-07-06 13:30 | XMS_ITS | Encounter Summary ---
Author Organization [facility] Address [address] [facility] [place] [address] Care Team Providers Care Seismic Interpreter Name Role Phone Juan Nguyen MD Primary Care Provider +1- [phone] Encounter Details Date Type Department Care Team (Late st Contact Info) Description 04/10/2025 Lab Requisition [facility]ician [facility] - Pathology Lab [address] [place] [address] Irving Wilson MD [address] [place] [address] Illness, unspecified Social History Tobacco Use [...] Report Bone Marrow Patholog y Report Case: [id number] Authorizing Provider: Irving Wilson Collected: 04/09/2025 09:20 AM MD Darrell Ordering Location: [facility] Physician [facility] - Received: 04/10/2025 02:41 PM Pathology Lab Pathologist: Miguel Suárez MD Specimens: A) - Bone Marrow Clot B) - Bone Marrow Core 04/15/2025 1:59 PM CDT [facility] Final Diagnosis Bone marrow, aspirate, clot section, and core biopsy: - Plasma cell neoplasm (~90% of marrow cellularity). - See description. Peripheral blood smear: - Pancytopenia. - See description. 04/15/2025 1:59 PM CDT [facility] Amendment electronically signed by Miguel Suárez MD on 04/15/2025 at 1359 CDT at 1102 CDT AP Comment A Congo Red is pending, and results will be reported in an addendum. 04/15/2025 1:59 PM CDT [facility] Peripheral Smear Description RBC: macrocytic anemia. WBC: leukopenia with no circulating plasma cells. Platelets: decreased in number. 04/15/2025 1:59 PM CDT [facility] Bone Marrow Aspirate Differential count (200 cells): not performed due to hemodilution. Specimen quality: hemodilute. Spicules: absent. There is considerable hemodilution present on the aspirate smears. However, plasma cells are seen, showing cytologic atypia with large size, rare multinucleation, and nucleoli. Storage iron (by special stain): markedly decreased in this mostly plasma cell dominant clot section. 04/15/2025 1:59 PM CDT [facility] Bone Marrow Core Biopsy [...] CD138+ plasma cells. 04/15/2025 1:59 PM CDT [facility] Flow Cytometry Summary Bone marrow, flow cytometry ([id number]): - Clonal kappa light chain restricted plasma cell population with aberrant CD34 and CD33 expression (~57% of overall events) 04/15/2025 1:59 PM CDT [facility] Clinical History Multiple myeloma, new diagnosis. 04/15/2025 1:59 PM CDT [facility] Materials Received Received are 23 slide(s) and 4 block(s) labeled [id number] along with a copy of the outside pathology report. [place] [address]. All original materials are returned to the referring institution, along with a copy of our final report. 04/15/2025 1:59 PM CDT [facility] Pathologist Location at [facility] 04/15/2025 1:59 PM CDT [facility] Disclaimer The performance characteristics of all immunohistochemical and indirect immunofluorescence stains (if any) cited in this report were determined by the Histopathology Laboratory of [facility]. Some of these tests were developed [...] Edited Result - Final Performing Organization Address City/State/[facility] Co de Phone Number [facility] [address] [phone] documented in this encounter Visit Diagnoses Diagnosis Illness, unspecified documented in this encounter Care Teams Seismic Interpreter Relationship Specialty Start Date End Date Juan Nguyen MD PCP - General Internal Medicine 01/27/17 documented as of this encounter
--- OUTSIDE RECORDS SUMMARY | 2025-07-06 13:30 | XMS_ITS | Encounter Summary ---
Author Organization [facility] Address [address] [place] [address] Care Team Providers Care Repair Table Operator Name Role Phone Juan Nguyen MD Primary Care Provider Reason for Visit * Reason Onset Date Comments Medication Refill 07/06/2025 Encounter Details Date Type Department Care Team (Late Contact Info) Description 07/06/2025 Refill [facility] Oncology and Hematology [address] [place] [address] Kirt Gonzalez MD [address] [place], [place] [address] [address] [place] [address] Social History Tobacco Use Types Packs/Day Years [...] Encounters Date Type Department Care Team (Late Contact Info) Description 07/27/2025 8:45 AM FISHER CLAM Office Visit [facility] Oncology and Hematology - [address] [place] [address] Kirt Gonzalez MD [facility] [place] [address] [place] [address] documented as of this encounter Visit Diagnoses Not on filedocumented in this encounter Care Teams Repair Table Operator Relationship Specialty Start Date End Date Juan Nguyen MD [address] [place] [address] PCP - General Internal Medicine 04/16/25 documented as of this encounter
--- OUTSIDE RECORDS SUMMARY | 2025-07-06 13:30 | XMS_ITS | Encounter Summary ---
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
--- OUTSIDE RECORDS SUMMARY | 2025-07-06 13:30 | XMS_ITS | Encounter Summary ---
Author Organization [facility] Address [address] [place] [address] Care Team Providers Care Professional Nurse Name Role Phone Juan Nguyen MD Primary Care Provider [phone] Encounter Details Date Type Department Care Team (Late Contact Info) Description 07/06/[address] [facility] Oncology and Hematology [facility] [address] [place] [address] Kirt Gonzalez MD [address] [place] [phone] Multiple myeloma not having achieved remission (CMS/HCC); Benign hypertension Social History Tobacco Use Types Packs/Day Years [...] st Contact Info) Description 07/27/2025 8:45 AM BLANKET WASHER Office Visit [facility] Oncology and Hematology [facility] [address] [place] [address] Kirt Gonzalez MD [address] [place] [address] documented as of this encounter Visit Diagnoses Diagnosis Multiple myeloma not having achieved remission (CMS/HCC) Multiple myeloma, without mention of having achieved remission Benign hypertension Essential hypertension, benign documented in this encounter Care Teams Professional Nurse Relationship Specialty Start Date End Date Juan Nguyen MD [address] [place] [phone] PCP - General Internal Medicine 04/16/25 documented as of this encounter
--- OUTSIDE RECORDS SUMMARY | 2025-07-06 13:30 | XMS_ITS | Encounter Summary ---
Author Organization [facility] Address [address] [place] [address] Phone Care Team Providers Care Cost Recorder Name Role Phone Juan Nguyen MD Primary Care Provider [phone]- [phone] Encounter Details Date Type Department Care Team (Late st Contact Info) Description 12/17/2017 Therapy [facility] Medicine General Neurology [address] [facility] 6th Floor [address] [place] [phone] Jess Davis MA Social History Tobacco Use Types Packs/Day Years Used Date Smoking Tobacco: Former Sex and Gender Information Value Date Recorded Sex Assigned at Not on file Legal Sex Male 3:08 AM SYSTEMS AUDITOR Gender Identity Not on file Sexual Orientation Not on file documented as of this encounter Plan of Treatment Scheduled Procedures Name Priority Associated Diagnoses Date/Ti wv ESOPHAGOGASTRODUODENOSCOPY Gastroesophageal reflux disease, unspecified whether esophagitis present documented as of this encounter Visit Diagnoses Not on filedocumented in this encounter Care Teams Cost Recorder Relationship Specialty Start Date End Date Juan Nguyen MD PCP - General 10/30/16 documented as of this encounter
--- OUTSIDE RECORDS SUMMARY | 2025-07-06 13:30 | XMS_ITS | Clinical Summary ---
Author Organization [facility] Address [address] [place] [address] Care Team Providers Care Health And Fitness Instructor Name Role Phone Juan Nguyen MD Primary Care Provider [phone]- [phone] Allergies No known active allergies Medications aspirin [...] (07/29/2021): Added automatically from request for surgery [id number] Bilateral hand pain 12/31/2019 Chronic pain of both knees 12/31/2019 Obesity 11/06/2017 Obstructive sleep apnea 03/14/2017 Gout 02/23/2017 Spinal stenosis of lumbar region 08/17/2016 Herniated lumbar intervertebral disc 08/04/2016 Numbness of lower extremity 08/04/2016 Lumbar radiculopathy 08/04/2016 Tetralogy of Fallot s/p repair 09/01/2010 Encounters Date Type Department Care Team Description 05/04/2025 Telephone [facility] [address] [facility] 6th Floor [address] [place] [phone] Carlos Granados NP 05/01/2025 Orders Only [facility] [address] [place] [phone] Juan Nguyen MD 04/09/2025 Orders Only [facility] [address] [place] [phone] Juan Nguyen MD from Last 3 Months Immunizations Immunization Administration Dates Next Due Influenza, Quadrivalent, Spl it, Preservative Free, Intramuscular 07/22/2022,03/25/2020 Moderna SARS-CoV-2 Monovalent Vaccination (12+ Y RS) 09/13/2020,08/16/2020 Pfizer SARS-CoV-2 Monovalent Vaccination (12+ Yrs) PURPLE 06/20/2021 Pfizer Sars-Cov-2 Bivalent Vaccination (12+ YRS) 07/22/2022 Pneumococcal Conjugate Pcv20 03/19/2025 Tdap 11/13/2023 Surgical History Surgery Date Site/Laterality Comments CORONARY ARTERY BYPASS GRAFT Coronary Artery Surgery - (Added by Conv) CARDIAC SURGERY SPINAL CORD DECOMPRESSION Medical [...] on file Legal Sex Male 3:08 AM IT CONSULTANT Gender Identity Not on file Sexual [...] CDT Respiratory Rate 15 09/13/2021 3:47 PM IT CONSULTANT Oxygen Saturation 100% 03/19/2025 9:57 AM CDT [...] SCAN - PATHOLOGY 04/09/2025 4:01 PM CDT PSA SCREEN Routine 03/19/2025 10:19 AM CDT Encounter for Medicare annual wellness exam COLONOSCOPY 09/13/2021 3:00 PM IT CONSULTANT from Last 3 Months or Most Recently Relevant to Health Maintenance Results * SCAN - RADIOLOGY/IMAGING (05/01/2025 1:15 PM CDT) Anatomical Region Laterality Modality Other us Juan Nguyen MD Final Resu lt * SCAN - PATHOLOGY (04/09/2025 4:01 PM CDT) us Juan Nguyen MD Final Resu lt * PSA screen (03/19/2025 10:19 AM CDT) PSA, Total 0.4 0.0 - 4.0 ng/mL MK DA Blood 03/19/2025 10:1 9 AM CDT 03/19/2025 10:36 AM CDT us Juan Nguyen MD LAB BLOOD ORDERABLES Final [facility] [address] [address], [facility] * COLONOSCOPY (09/13/2021 3:00 PM IT CONSULTANT) Anatomical Region Laterality Modality Other Narrative Procedure Note Uri Hodges MD PhD - 09/13/2021 3:00 PM [facility] Patient Name: Ramon Mendoza Procedure Date: 09/13/2021 3:00 PM Date of : 1960 Admit Type: Outpatient Age: 61 Gender: Male Attending MD: Uri Hodges MD,PHD Room: [facility] END[facility] 8 Note Status: Finalized Procedure: [...] The scope was passed under direct vision.The [id number] endoscope was introduced through the anus and advanced to the cecum, identified by appendiceal orifice and ileocecal valve. The colonoscopy was performed without difficulty. The patient tolerated the procedure well. The qualityof the bowel preparation was excellent. The quality of the bowel preparation was evaluated using the BBPS (Hickman Bowel Preparation Scale) with scores of:Right Colon [...] On: 09/13/2021 3:00 PM Recognized by the [employer] [place] [employer] for promoting quality in endoscopy Uri Hodges MD PhD ENDOSCOPY PROCEDURES Chelle l Result from Last 3 Months or Most Recently Relevant to Health Maintenance Insurance [facility] CHOICE PLUS MEDICARE [facility] CHOICE PLUS [facility] CHOICE PLUS MEDICARE [facility] Advance Directives For more information, please contact: [phone] * Full Code (Latest Code Status on File) Date Activated Date Inactivated Comments 09/13/2021 2:27 PM 09/13/2021 8:09 PM Care Teams Health And Fitness Instructor Relationship Specialty Start Date End Date Juan Nguyen MD PCP - General 10/30/16
== END 2025-07-06 11:39 | disposition home or self-care (01) ==
PROVIDERS: PCP Internal Medicine; Visit Provider Anesthesiology
DX: C90.00 Multiple myeloma not having achieved remission (principal); Z01.818 Encounter for other preprocedural examination
CPT/HCPCS: 36415; 85610; 85730

== ENCOUNTER 2025-07-07 00:34 | Day surgery (SDC) | payer MEDICARE, OTHER, SELFPAY ==
[2025-06-29 12:45] VITALS: BMI 25.4
--- NOTE | 2025-06-29 13:02 | PC.NURSE ---
[facility] construction of its new state of the art ER which will open Spring 2026. With this, we anticipate parking may be a challenge for some our surgical patients and families. Parking spaces are limited but are available for all Surgical, obstetrics, and ER patients sharing this lot. If you arrive and find you are having a hard time finding a parking space, please note that we understand the challenges, please drive around the hospital and park near Hospital Entrance 1. When you enter this entrance, you can ask a volunteer to direct or take you back to the surgical waiting area to check in. We appreciate everyone?s understanding of these expected challenges while we build for your future. Report to the Outpatient Waiting Room, entrance under the green pavilion located off [address], at time __10:00am on date __07/07/25 . Planned Procedure Time: _12:00pm .? Time changes happen often and if your time is changed the preop area will call you the afternoon before. - You and your visitor will be asked to self-screen and do not enter if you have any COVID symptoms. Please call surgeon if you need to reschedule. - A mask is optional within the hospital at this time. Patients may have clear liquids (water, carbonated beverages, clear teas, apple juice) until 3 hours prior to surgery with a maximum of 20 ounces. - No food from midnight until time of surgery and no smoking, or chewing tobacco (or any form of nicotine). No chewing gum, candy or mints. ( 0900am) Take only the following medications with a SIP of water on the morning of surgery: ___[place] DO NOT STOP ANY OF YOUR OTHER PRESCRIPTION MEDICATIONS PRIOR TO SURGERY EXCEPT THE FOLLOWING Hold all vitamins and supplements for 3 days per anesthesiologist. Medications to discontinue per physician HOLD ASPIRIN - Cont to HOLD for now per Dr Sheikh Date to take last dose____06/29/25 Please no make-up, nail swedish, hairspray, perfume, deodorant, or body powder the day of surgery.? No jewelry (including any body piercings) or valuables the day of surgery, leave them at home.? Please take a shower or bath the night before, or the morning of, surgery with an antibacterial soap.? Wear comfortable, loose fitting clothing.? Children are encouraged to wear pajamas. - Jewelry must be removed prior to entering the operating room.? Rings and piercings that are not removed may be cut off. - The hospital will not accept responsibility for valuables.? - Please leave all valuables, including medications, at home the day of surgery. If you are going home after surgery, a licensed pile driver must drive you home.? - NO public transportation without another adult if you receive anesthesia. - We recommend that an adult stay with you for 24 hours following discharge. - We also recommend that you do not drive, make important decision, drink alcoholic beverages, or take any drugs that were not prescribed by your health care provider for at least 24 hours after your discharge time. Follow any additional instructions given to you from your surgeon. Telephone instructions given to _Patient and asked if any additional questions and then verbalized understanding. Patient advised to call surgeon office or pre surgery nurse liaison [phone] if any additional questions.
[2025-07-07] VITALS (7 sets, daily range): BP systolic 103–149; BP diastolic 57–64; PULSE 78–84; RESP 14–20; TEMP 36.3–36.9; O2SAT 99–100
--- NOTE | ~2025-07-07 | XR_ITS ---
XR fl guide central line place Indication: Insertion of portacatheter TECHNIQUE: Fluoroscopy used during insertion of portacatheter performed by [Gregg Sheikh MD] on 07/07/2025. 29 seconds of fluoroscopy with one fluoroscopic images captured. FINDINGS: Correlate with procedure note. IMPRESSION: Fluoroscopy used during insertion of portacatheter. Reviewed, dictated and finalized at location O. OW PROCESSOR
--- NOTE | ~2025-07-07 | XR_ITS ---
XR chest port-a-cath/central 07/07/2025 16:32 Indication: Postportacatheter insertion Procedure: AP portable chest Comparison: 04/06/2025 Findings: Portacatheter tip in the SVC. Cardiomegaly. No focal air space disease, pulmonary edema, pleural effusion or suspected pneumothorax. No acute osseous abnormality. Impression: 1: Portacatheter tip in the SVC. No pneumothorax. Reviewed, dictated and finalized at location O. COVERING HANGER Impression: 1: Portacatheter tip in the SVC. No pneumothorax.
--- NOTE | 2025-07-07 12:02 | PM.IMHP2 ---
H&P: HPI History of Present Illness Date/Time: 07/07/25 12:02 Chief Complaint: Multiple myeloma. Narrative: Multiple myeloma not in remission. Poor peripheral venous access so he needs a port for continuing chemo tx. No prior hx of clavicle fx or prior port placement. Hb and platelet count ok for surgery today. Review of Systems Review of Systems: The remainder of the review of systems to include constitutional, HEENT, cardiovascular, respiratory, GI, , integumentary, musculoskeletal, endocrine, immunologic, hematologic, psychiatric, and neurologic are all negative except for which is mentioned above in the HPI. [facility] Past Medical History Medical History Anemia associated with chemotherapy Myeloma Tetralogy of Fallot Gout Surgical History Surgical History History of open heart surgery Noa-Taussig shunt and subsequent Tetralogy of Fallot repair. History of spinal surgery Family History Family History Other No pertinent family history Social History Social History Social History: Surrogate decision maker: Cindy Mendoza, . Code status: Full code. Smoking packs per day: 1 Smoking cigarettes per day: 20.0 Years smoked: 25 Smoking pack-years: 25.00 Smoking status: Former smoker Tobacco type: cigarettes Second hand tobacco smoke exposure: No Smoking end date: 07/16/98 Additional smoking assessment comments: stopped smoking ay 38yrs old Alcohol intake: never Drinks per week: 1 Substance use: never Lack of Transportation: No Lack of Food: Never True Current Housing: I Have Housing Concerned About Future Housing: No Difficulty Paying Gas/Electric Bills: No Difficulty Paying for Meds: No Currently Unemployed: No Education: Bachelor's Degree Difficulty w/ Childcare or Family Care: No Living arrangements: with family Additional living arrangements comments: The patient lives in [place] 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 Instructions: .Provider Order calcium 600 mg (as 1 cap PO TID 06/02/25 06/29/25 History carbonate)-vitamin D3 12.5 mcg (500 unit) capsule ferrous sulfate 325 mg (65 mg 325 mg PO DAILY 06/22/25 06/29/25 History iron) tablet (Feosol) mecobalamin (vitamin B12) 1,000 1,000 mcg sublingual DAILY 06/22/25 06/29/25 History mcg disintegrating tablet,sublingual acyclovir 400 mg tablet 400 mg PO DAILY 06/29/25 06/30/25 History dexamethasone 4 mg tablet 10 mg PO .Mondays06/29/25 06/30/25 History omeprazole 20 mg capsule,delayed 20 mg PO DAILY 06/29/25 06/30/25 History release ondansetron 8 mg disintegrating 8 mg PO .as needed 06/29/25 06/30/25 History tablet sulfamethoxazole 800 1 tablet PO Q12H 06/29/25 06/30/25 History mg-trimethoprim 160 mg tablet Allergies Allergy/AdvReac Type Severity Reaction Status Date / Time No Known Allergies Allergy Verified 07/06/25 12:00 Exam Const: General: comfortable and no acute distress HENMT: Ears: TM's normal bilaterally Face/Nose/Sinus: Normal nares present Mouth: Yes moist mucous membranes Eyes: General: appearance normal, both eyes and all related structures Sclera: sclerae normal Pupils: Equal, round and reactive pupils present EOM: EOMs intact bilaterally Neck: Neck: supple and no JVD Resp: Effort & Inspection: normal respiratory effort Auscultation: clear to auscultation bilaterally Cardio: Rate: regular rate Rhythm: regular rhythm GI: GI Palp: Yes Soft to palpation, No Firmness to palpation present (GI), No Tenderness to palpation present (GI) and No Guarding due to palpation present (GI) Skin: General skin exam: normal color and no rashes or lesions noted Neuro: General: gait normal Speech: normal speech Motor exam (neuro): 5/5 motor strength present throughout Sensory Exam: normal sensation Extrem: General: normal to inspection Psych: Mental Status: mental status grossly normal Assessment and Plan Assessment and plan (1) Myeloma: Code(s): C90.00 - Multiple myeloma not having achieved remission Status: Acute Assessment and Plan: Proceed with portacatheter placement today. Risks to include bleeding needing blood transfusion and iatrogenic pneumothorax requiring chest tube placement discussed. Risks, benefits, indications, and expected outcomes were discussed in detail with the patient and/or family. They understand and I have answered all other questions. They wished to proceed with surgery as outlined above.
--- NOTE | 2025-07-07 14:40 | WPDHPUPDATE1 ---
History and Physical Update Update Date/Time: 07/07/25 14:40 History and Physical has been reviewed, including an updated exam of the patient. There are NO changes in the patient's condition. Risks, benefits, and alternatives have been discussed and questions answered. Patient agrees to proceed with procedure.
--- NOTE | 2025-07-07 15:13 | WPDANESEPPF ---
Anes - Initial Pre Proc Eval Procedure: Operation Date: 07/07/25 15:00 Proposed Procedures p Insertion Loree Cath - Gregg Sheikh MD Date/Time: 07/07/25 15:13 Surgeon: Gregg Sheikh MD Pre Op Diagnosis: multiple myeloma Patient Data Age: 65 Gender: M Height: 1.75 m Weight: 79.4 kg Last Vital Signs Temp 98.4 F 07/07/25 12:00 Pulse 81 07/07/25 12:00 Resp 16 07/07/25 12:00 BP 145/62 H 07/07/25 12:00 Pulse Ox 100 07/07/25 12:00 O2 Del Method Room Air 07/07/25 12:00 Allergies Allergy/AdvReac Type Severity Reaction Status Date / Time No Known Allergies Allergy Verified 07/07/25 12:27 Home Medications ?Medication ?Instructions ?Recorded ?Confirmed ?Type aspirin 81 mg tablet,delayed 81 mg PO DAILY 04/07/25 07/07/25 History release (Adult Low Dose Aspirin) Held on 06/29/25. Instructions: .Provider Order calcium 600 mg (as 1 cap PO TID 06/02/25 07/07/25 History carbonate)-vitamin D3 12.5 mcg (500 unit) capsule ferrous sulfate 325 mg (65 mg 325 mg PO DAILY 06/22/25 06/29/25 History iron) tablet (Feosol) mecobalamin (vitamin B12) 1,000 1,000 mcg sublingual DAILY 06/22/25 07/07/25 History mcg disintegrating tablet,sublingual acyclovir 400 mg tablet 400 mg PO DAILY 06/29/25 07/07/25 History dexamethasone 4 mg tablet 10 mg PO .Mondays06/29/25 07/07/25 History omeprazole 20 mg capsule,delayed 20 mg PO DAILY 06/29/25 07/07/25 History release ondansetron 8 mg disintegrating 8 mg PO .as needed 06/29/25 06/30/25 History tablet sulfamethoxazole 800 1 tablet PO Q12H 06/29/25 06/30/25 History mg-trimethoprim 160 mg tablet Patient hx anesthesia problems: none Family hx anesthesia problems: none Results Review: All pre-operative results and documents have been reviewed as part of the pre-operative evaluation. [facility] Past Medical History Medical History Anemia associated with chemotherapy Myeloma Tetralogy of Fallot Gout Surgical History Surgical History History of open heart surgery Noa-Taussig shunt and subsequent Tetralogy of Fallot repair. History of spinal surgery Family History Family History Other No pertinent family history Social History Social History Social History: Surrogate decision maker: Cindy Mendoza, . Code status: Full code. Smoking packs per day: 1 Smoking cigarettes per day: 20.0 Years smoked: 25 Smoking pack-years: 25.00 Smoking status: Former smoker Tobacco type: cigarettes Second hand tobacco smoke exposure: No Smoking end date: 07/16/98 Additional smoking assessment comments: stopped smoking ay 38yrs old Alcohol intake: never Drinks per week: 1 Substance use: never Lack of Transportation: No Lack of Food: Never True Current Housing: I Have Housing Concerned About Future Housing: No Difficulty Paying Gas/Electric Bills: No Difficulty Paying for Meds: No Currently Unemployed: No Education: Bachelor's Degree Difficulty w/ Childcare or Family Care: No Living arrangements: with family Additional living arrangements comments: The patient lives in [place] Additional occupation/education comments: [employer] Gender identity (if verbalized by the patient): Male Spiritual care concerns: No Anes - Eval Final PreProcedure Day of Procedure 07/07/25 15:13 Patient weight: normal Heart: regular rate and rhythm Lungs: clear to auscultation Airway: Mallampati scale class II Neurological: alert and oriented Last oral intake: >/= 8 hours ASA classification: III Emergent: no Anesthetic plan: proceed Anesthesia type and monitoring: general GIVS (LMA) and standard monitoring Results Review: All pre-operative results and documents have been reviewed as part of the pre-operative evaluation. Informed Consent: The patient's anesthetic plan and its attendant risks and benefits were discussed with the patient/family/POA. Questions were solicited and answers provided to the satisfaction of the patient/family/POA.
[2025-07-07] MEDS: ceFAZolin 2 GM in SODIUM CHLORIDE 0.9% IV 50 ML 100 ML IVPB (15:22)
[2025-07-07] MEDS: LIDO 1%/EPINEPHRINE 1:100,000 50 ML VIAL 30 ML INFILTRATE (15:22)
[2025-07-07] MEDS: BUPivacaine HCL 0.5% 10 ML AMP 30 ML INFILTRATE (15:22)
[2025-07-07] MEDS: LACTATED RINGERS 1,000 ML 30 ML IV CONT (16:21)
--- NOTE | 2025-07-07 17:52 | SUR.PHASEII ---
1700 - xray noted no pneumothorax
--- NOTE | 2025-07-08 07:51 | P.OP_ITS ---
Procedure Note - Detailed Date of Procedure 07/08/25 Pre-op Diagnosis Multiple myeloma, poor peripheral venous access Post-op Diagnosis Same Procedure Performed Placement of right subclavian vein single-lumen port a catheter with intraope rative fluoroscopy. Surgeon Gregg Sheikh MD Forest Pathologist Gil Bryant SA Anesthesia General Indications Patient is a 65-year-old gentleman who has multiple myeloma which is being treated chemotherapy. He was getting treatments with peripheral IVs but now it is very difficult to find IV peripheral access. Presents now for placement of a scooter catheter for continuation was chemotherapy treatments. Findings None significant Description of Procedure After informed consent was obtained patient brought to the operating room was placed supine position and general LMA anesthesia was administered. Bilateral upper anterior neck and chest was then prepped and draped usual sterile fashion. A time-out was then performed correctly identifying the patient as well as procedure to be performed. He was given perioperative IV antibiotics. Approach placement of the scooter catheter into the right subclavian vein. 0.5% Marcaine mixed with 1% lidocaine was then injected just below the medial 3rd of the right clavicle in the right anterior chest. A transverse incision was then made this area the scalp and then dissection carried down through the subcutaneous tissues until I got to the anterior pectoralis major muscle fascia. I then created a subcutaneous port pocket just below the incision with a combination electrocautery and blunt finger dissection. I then placed the patient head-down Trendelenburg position and used a long 18gauge spinal needle the cannulate the right subclavian vein on the 1st pass without any difficulty. There was prompt return of dark venous appearing blood. A guidewire was advanced through the needle into the right subclavian vein subsequent down into the superior vena cava. Intraoperative fluoroscopy was then used to identify the tip of the guidewire in the proper position. I then advanced a dilator breakaway sheath over the guidewire. The dilator and guidewire were removed leaving the sheath in place. A 9.6 [place] single-lumen silastic catheter was advanced through the sheath into the right subclavian vein then into the right atrium. The sheath was then torn away leaving the catheter in place. Intraoperative fluoroscopy was used once more to visualize the tip of the catheter and then with traction on the catheter externals the chest wall the tip of the catheter was pulled back and was in the distal superior vena cava. The catheter was then cut to the appropriate level the skin level and attached to the titanium Smart Port. The port was then secured the subcutaneous port pocket utilizing 3-0 Prolene sutures placed on 3 sides. The subcu port pocket was then irrigated sterile saline solution hemostasis was good. The port was then accessed with a Cai needle and aspirated blood easily and was flushed with heparinized saline solution. The incision was then closed utilizing interrupted 3-0 Vicryl sutures in subcutaneous tissues. Skin edges were then approximated utilizing a running s ubcuticular 4-0 Monocryl suture. The incision was then cleaned the skin glue was applied. The port was then accessed percutaneously with a Cai needle and again marla back blood easily and was flushed with 5000units of heparin IV. The patient tolerated the procedure well no complications. All sponges, needles, and instrument counts were correct at the end procedure. EBL was _20__cc. The patient was awakened and taken to recovery in stable and satisfactory condition. Portable chest x-ray was performed post surgically and there was no evidence of pneumothorax and good positioning of tip of the catheter in the distal superior vena cava. Implants 9.6 [place] silastic catheter attached to titanium Smart port placed via the right subclavian vein in the right upper anterior chest Estimated Blood Loss 20 Drains No Packing No Pathology None sent Complications No immediate complications Condition Stable Disposition PACU [facility] Billing Surgery - Charge Forward: Surgery Billing
== END 2025-07-07 17:50 | disposition home or self-care (01) ==
PROVIDERS: PCP Internal Medicine; Visit Provider Surgery
PROC: (CPT 36561; principal; 2025-07-07 15:00)
DX: C90.00 Multiple myeloma not having achieved remission (principal)
CPT/HCPCS: 36561; 77001; J0690; C1788; J1644; J2004; J2250; J2704; J3010; J7120